=== PATIENT | male | born 1965 | race Caucasian/White ===

== ENCOUNTER 2019-04-03 12:04 | Emergency (ER) | payer OTHER, MEDICAID, SELFPAY ==
[2019-04-03 12:08] VITALS: BP 136/82; PULSE 69; RESP 16; TEMP 36.4; O2SAT 99; BMI 26.6
--- NOTE | 2019-04-03 13:09 | DI.RAD.S_ITS ---
PROCEDURE: XR ANKLE LT MIN 3V INDICATIONS: Tenderness and swelling over lateral malleolus TECHNIQUE: 3 views of the ankle were acquired. COMPARISON: None. FINDINGS: Bones: No fractures or dislocations. Ankle mortise is normally aligned. No suspicious bony lesions. Soft tissues: No tibiotalar joint effusion. Achilles tendon appears normal. IMPRESSION: No trauma. Dictated by: Aydin Peraza M.D. on 04/03/2019 at 13:28 Approved by: Aydin Peraza M.D. on 04/03/2019 at 13:28
--- NOTE | 2019-04-03 13:09 | DI.RAD.S_ITS ---
PROCEDURE: XR FOOT LT MIN 3V INDICATIONS: calcaneous and arch tenderness after landing on heel TECHNIQUE: 3 views of the foot were acquired. COMPARISON: None. FINDINGS: Bones: No fractures or dislocations. No suspicious bony lesions. Soft tissues: No tibiotalar joint effusion. Achilles tendon appears normal. IMPRESSION: No acute fracture. No osseous lesion. If symptoms and/or clinical suspicion for pathology persist, further assessment with repeat, or advanced imaging (e.g., CT, MRI, or bone scan) may be helpful for further assessment. Dictated by: Gualberto Nolasco M.D. on 04/03/2019 at 13:36 Approved by: Gualberto Nolasco M.D. on 04/03/2019 at 13:37
--- NOTE | 2019-04-03 13:13 | ED_ITS ---
HPI - Extremity Injury (Lower) <EDGAR Crawford - Last Filed: 04/03/19 14:01> General Chief Complaint: Extremity Injury, Lower Stated Complaint: Left foot pain stepped wrong off a truck Time Seen by Provider: 04/03/19 12:22 Source: patient Mode of arrival: ambulatory Limitations: no limitations History of Present Illness HPI Narrative: A 53-year-old male with an unremarkable past medical history, presents emergency department complaining of left foot pain and ankle swelling for the past 2 days after tripping while stepping off a truck and landing on his left heel. States he felt a pop in the bottom of his foot with associated constant 4/10 dull aching pain. Noticed swelling has increased to left foot, left ankle and lower left portion of calf over the past 2 days. Pain is worse with weight-bearing and better with rest. Continues to bear weight on foot. Denies calf tenderness, lumps, redness, dizziness, chest pain, shortness of breath, abdominal pain, nausea, vomiting, change in bowel movements, fever, chills, history of long trips, or history of taking blood thinners. MD complaint: foot injury Onset (ago): day(s) Type of Injury: blunt Place: street/outdoors Severity: mild Severity scale (1-10): 4 Relieving factors: rest Exacerbating factors: weight bearing Context: walking Associated symptoms: snap/pop sensation Other symptoms: none Related Data Home Medications Medication Instructions Recorded Confirmed [fermented codliver o] #0 02/13/18 [natural calm] #0 02/13/18 cholecalciferol (vitamin D3) 5,000 unit PO #0 02/13/18 cyanocobalamin (vitamin B-12) 1,000 mcg IM X1 #0 02/13/18 Allergies Allergy/AdvReac Type Severity Reaction Status Date / Time Penicillins [PENICILLINS] Allergy Unknown Verified 04/03/19 15:37 Review of Systems <EDGAR Crawford - Last Filed: 04/03/19 14:01> Review of Systems REVIEW OF SYSTEMS: GENERAL: Denies fever or chills. HENT: No head trauma, hearing loss or sore throat. EYES: No loss of vision, double vision, eye pain, or irritation. CARDIOVASCULAR: No chest pain or syncope. RESPIRATORY: No shortness of breath or cough. GASTROINTESTINAL: No nausea, vomiting, diarrhea, or constipation. GENITOURINARY: No flank pain or dysuria. MUSCULOSKELETAL: See HPI. No weakness. INTEGUMENTARY: No rash, lesions, or pruritus. NEURO: No numbness, tingling, memory loss, or confusion. PSYCH: No behavior or mood changes. PFSH <EDGAR Crawford - Last Filed: 04/03/19 14:01> Medical History (Updated 04/03/19 @ 16:33 by Sandhya Painter RN) No significant medical problems (Chronic) Social History Smoking Status: Current every day smoker Social History Smoking Status: Current every day smoker Exam <EDGAR Crawford - Last Filed: 04/03/19 14:01> Initial Vital Signs Initial Vital Signs: Vital Signs Temperature 97.5 F L 04/03/19 12:08 Pulse Rate 69 04/03/19 12:08 Respiratory Rate 16 04/03/19 12:08 Blood Pressure 136/82 04/03/19 12:08 Pulse Oximetry 99 04/03/19 12:08 PHYSICAL EXAMINATION: GENERAL:Alert, and cooperative Answers questions promptly and appropriately. Vital signs noted. HENT: Normocephalic, atraumatic. Oral mucosa is pink and moist. EYES: EOMIs, conjunctiva pink, sclera white, no periorbital swelling. CARDIOVASCULAR: S1 and S2 sounds normal. Regular rate and rhythm, no murmurs, clicks, or bruits. No pedal edema. RESPIRATORY: Normal respiratory rate, trachea midline, airway patent. No stridor, nasal flaring or accessory muscle use. Lungs are clear in all mcbride without wheeze, rhonchi, or crackles. MUSCULOSKELETAL: Normal gait and coordination. Equal tone and mass bilaterally. No spinal tenderness or deformities. EXTREMITIES: 1+ nonpitting swelling noted arch of left foot, 1+ nonpitting swel ling noted to the medial and lateral malleolus. Tenderness around plantar arch area, tenderness to lateral and medial malleolus. No tenderness to left calf with movement and deep palpation , no tenderness to calf with extension of foot. No redness, or induration, or increased warmth to the calf, ankle, or foot. CMS intact. Full range of motion to feet and ankles bilaterally and 5/5 strength to lower extremities. Patient able to bear weight without limping and can walk across the room. No ecchymosis noted. No deformities. SKIN: Warm, dry, soft, appropriate color for ethnicity. No lesions, rashes, or wounds. NEURO: Alert and Oriented X 3. Good coordination. No ataxia, or sensory deficits, or cognitive issues. PSYCH: Appropriate affect and mood. <Sabrina Santiago MD - Last Filed: 04/03/19 19:07> Initial Vital Signs Initial Vital Signs: Vital Signs Temperature 97.5 F L 04/03/19 12:08 Pulse Rate 69 04/03/19 12:08 Respiratory Rate 16 04/03/19 12:08 Blood Pressure 136/82 04/03/19 12:08 Pulse Oximetry 99 04/03/19 12:08 Scores <EDGAR Crawford - Last Filed: 04/03/19 14:01> Wells' Criteria for DVT Active Cancer (Treatment within 6 months): No Bedridden recently >3 days or major surgery within 4 weeks: No Calf Swelling >3cm compared to other leg: No Collateral (nonvericose) superficial veins present: No Entire leg swollen: No Localized tenderness along the deep vein system: No Pitting edema, confined to symtomatic leg: No Paralysis, paresis, or recent plaster immobilization of ext: No Previously documented DVT: No Alternative dx to DVT as likely or more likely: No Wells' criteria for DVT: 0 Course <EDGAR Crawford - Last Filed: 04/03/19 14:01> Course Narrative: Discussed with patient discharge instructions and follow-up as an additional x-ray or testing may be needed if symptoms persist. Discussed with to look for for signs of a blood clot which can happen after injury. Orders Ordered: ED Orders 04/03/19 13:09 XR ankle LT min 3V Stat XR foot LT min 3V Stat Consultations Consultation #1: Patient staffed with Dr. Santiago who agrees with plan of care. Vital Signs - 8 hr 04/03/19 12:08 04/03/19 14:00 04/03/19 14:13 Temperature 97.5 F L 98.5 F Pulse Rate 69 68 Pulse Rate [Left Radial] 68 Respiratory Rate 16 18 Blood Pressure 136/82 Blood Pressure [Right Arm] 143/90 H Pulse Oximetry 99 98 04/03/19 14:40 Temperature Pulse Rate 68 Pulse Rate [Left Radial] Respiratory Rate 18 Blood Pressure 143/90 H Blood Pressure [Right Arm] Pulse Oximetry 98 <Sabrina Santiago MD - Last Filed: 04/03/19 19:07> Orders Ordered: ED Orders 04/03/19 13:09 XR ankle LT min 3V Stat XR foot LT min 3V Stat Vital Signs - 8 hr 04/03/19 12:08 04/03/19 14:00 04/03/19 14:13 Temperature 97.5 F L 98.5 F Pulse Rate 69 68 Pulse Rate [Left Radial] 68 Respiratory Rate 16 18 Blood Pressure 136/82 Blood Pressure [Right Arm] 143/90 H Pulse Oximetry 99 98 04/03/19 14:40 Temperature Pulse Rate 68 Pulse Rate [Left Radial] Respiratory Rate 18 Blood Pressure 143/90 H Blood Pressure [Right Arm] Pulse Oximetry 98 MDM - Extremity Injury (Lower) <EDGAR Crawford - Last Filed: 04/03/19 14:01> Medical Records Attestation: I reviewed the patient's medical records. Lab Data Attestation: I reviewed the patient's lab results. Imaging Data Ankle XR: Radiologist's impression: [address] [address] XRay Report Signed Patient: Valeriy Beasley#: [id number] : 1965Acct:[id number] Age/Sex: 53 / MDate of Service: 04/03/19 Loc: ED Accession Number: [id number] Procedure: XR ankle LT min 3V Ordering Provider: Elise Albarado PROCEDURE: XR ANKLE LT MIN 3V INDICATIONS: Tenderness and swelling over lateral malleolus TECHNIQUE: 3 views of the ankle were acquired. COMPARISON: None. FINDINGS: Bones: No fractures or dislocations. Ankle mortise is normally aligned. No suspicious bony lesions. Soft tissues: No tibiotalar joint effusion. Achilles tendon appears normal. IMPRESSION: No trauma. Dictated by: Aydin Peraza M.D. on 04/03/2019 at 13:28 Approved by: Aydin Peraza M.D. on 04/03/2019 at 13:28 Left foot: Radiologist's impression: [address] [address] XRay Report Signed Patient: Chet Beasleymalinda#: [id number] : 1965Acct:[id number] Age/Sex: 53 / MDate of Service: 04/03/19 Loc: ED Accession Number: [id number] Procedure: XR foot LT min 3V Ordering Provider: Elise Albarado PROCEDURE: XR FOOT LT MIN 3V INDICATIONS: calcaneous and arch tenderness after landing on heel TECHNIQUE: 3 views of the foot were acquired. COMPARISON: None. FINDINGS: Bones: No fractures or dislocations. No suspicious bony lesions. Soft tissues: No tibiotalar joint effusion. Achilles tendon appears normal. IMPRESSION: No acute fracture. No osseous lesion. If symptoms and/or clinical suspicion for pathology persist, further assessment with repeat, or advanced imaging (e.g., CT, MRI, or bone scan) may be helpful for further assessment. Dictated by: Gualberto Nolasco M.D. on 04/03/2019 at 13:36 Approved by: Gualberto Nolasco M.D. on 04/03/2019 at 13:37 MDM Narrative Medical decision making narrative: I suspect swelling and pain is from a sprain due to inability to bear weight, slight swelling, mechanism of injury, and no acute changes on x-ray. Very little concern for blood clot due to lack of calf tenderness with palpation and stretching and calf, redness, induration, or significant risk factors. Return precautions and follow-up instructions discussed. Discharge Plan Departure Patient Disposition: Home Clinical Impression: Foot pain, left Sprain of foot, left Qualifiers: Encounter type: initial encounter Qualified Code(s): S93.602A - Unspecified sprain of left foot, initial encounter Discharge Date/Time: 04/03/19 14:02 Interventions: ED Discharge Assessment Last Done: 04/03/19 14:40 Instructions: DI for Deep Vein Thrombosis, DI for Foot Sprain Activity Restrictions/Additional Instructions: As discussed, you're x-rays do not show any broken bones or acute abnormalities. I suspect the pain and swelling is caused from a sprain to your foot. Please use ibuprofen as needed for pain, elevate the leg when possible, use an Pito bandage for few days to decrease the swelling. Although this is less likely, I have attached instructions on signs to look for a blood clot, if these signs occur please return. Otherwise, follow up with her primary care provider in the next few days if needed. Prescriptions: No Action cyanocobalamin (vitamin B-12) 1,000 MCG/1 ML solution 1,000 mcg IM X1 Qty: 0 RF: 0 cholecalciferol (vitamin D3) 5,000 UNIT capsule 5,000 unit PO Qty: 0 RF: 0 [fermented codliver o] Qty: 0 RF: 0 [natural calm] Qty: 0 RF: 0
[2019-04-03 14:00] VITALS: BP 143/90; PULSE 68; RESP 18; TEMP 36.9; O2SAT 98
[2019-04-03 14:13] VITALS: PULSE 68
[2019-04-03 14:40] VITALS: BP 143/90; PULSE 68; RESP 18; O2SAT 98
== END 2019-04-03 14:02 | disposition home or self-care (01) ==
PROVIDERS: Emergency Provider Nurse Practitioner
DX: S93.602A Unspecified sprain of left foot, initial encounter (principal); W18.49XA Other slipping, tripping and stumbling without falling, initial encounter
CPT/HCPCS: 73610; 73630; 99282; 99283

== ENCOUNTER 2019-04-03 15:26 | Emergency (ER) | payer OTHER, MEDICAID, SELFPAY ==
[2019-04-03 15:34] VITALS: BP 139/83; PULSE 106; RESP 16; TEMP 37.2; O2SAT 98; BMI 26.6
--- NOTE | 2019-04-03 19:08 | ED.SKABFB ---
HPI - Skin/Abscess/Foreign Bdy General Chief complaint: Skin/Abscess/Foreign Body Stated complaint: PAINFUL, HARD LUMP ON BACK Related Data Home Medications Medication Instructions Recorded Confirmed [fermented codliver o] #0 02/13/18 [natural calm] #0 02/13/18 cholecalciferol (vitamin D3) 5,000 unit PO #0 02/13/18 cyanocobalamin (vitamin B-12) 1,000 mcg IM X1 #0 02/13/18 Allergies Allergy/AdvReac Type Severity Reaction Status Date / Time Penicillins [PENICILLINS] Allergy Unknown Verified 04/03/19 15:37 [facility] Medical History (Updated 04/03/19 @ 16:33 by Sandhya Painter RN) No significant medical problems (Chronic) Social History Smoking Status: Current every day smoker Social History Smoking Status: Current every day smoker Exam Initial Vital Signs Initial Vital Signs: Vital Signs Temperature 98.9 F 04/03/19 15:34 Pulse Rate 106 H 04/03/19 15:34 Respiratory Rate 16 04/03/19 15:34 Blood Pressure 139/83 04/03/19 15:34 Pulse Oximetry 98 04/03/19 15:34 Course Course Narrative: Patient left without being seen. Vital Signs - 8 hr 04/03/19 15:34 Temperature 98.9 F Pulse Rate 106 H Respiratory Rate 16 Blood Pressure 139/83 Pulse Oximetry 98 Discharge Plan Departure Patient Disposition: Left Against Medical Advice Clinical Impression: Patient left after triage Discharge Date/Time: 04/03/19 16:33 Interventions: ED Discharge Assessment Last Done: 04/03/19 16:30 Prescriptions: No Action cyanocobalamin (vitamin B-12) 1,000 MCG/1 ML solution 1,000 mcg IM X1 Qty: 0 RF: 0 cholecalciferol (vitamin D3) 5,000 UNIT capsule 5,000 unit PO Qty: 0 RF: 0 [fermented codliver o] Qty: 0 RF: 0 [natural calm] Qty: 0 RF: 0 Stand Alone Forms: Against Medical Advice
== END 2019-04-03 16:33 | disposition left against medical advice (07) ==
PROVIDERS: Emergency Provider Emergency Medicine
DX: S93.602A Unspecified sprain of left foot, initial encounter (principal); W18.49XA Other slipping, tripping and stumbling without falling, initial encounter
CPT/HCPCS: 73610; 73630; 99282; 99283

== ENCOUNTER 2020-04-30 11:44 | Emergency (ER) | payer OTHER, MEDICAID, SELFPAY ==
[2020-04-30 12:04] VITALS: BP 163/98; PULSE 78; RESP 18; TEMP 37.4; O2SAT 99; BMI 27.3
--- NOTE | 2020-04-30 12:25 | ED_ITS ---
HPI - Dental/Oral <EDGAR Crawford - Last Filed: 04/30/20 20:55> General Chief complaint: Dental/Oral Stated complaint: LEFT SIDE BROKEN TOOTH SWELLING Time Seen by Provider: 04/30/20 12:11 Source: patient Mode of arrival: Family Vehicle Limitations: no limitations History of Present Illness HPI Narrative: 54yo male with history of dental caries, presents to the emergency department complaining of left lower tooth pain. He states 2 days ago he was chewing beef jerky when he felt like a piece of food was stuck in his tooth. The next morning he noticed he had significant left tooth pain and mild cheek swelling. Patient states the pain was partially relieved with Tylenol and ibuprofen, he went to work today and noticed the pain was increasing throughout the day. Patient is concern for infection. He has not seen the dentist at this point but plans to establish a dentist appointment. Patient denies other symptoms such as difficulty swallowing, fevers, chills, nausea, vomiting, diarrhea, chest pain, shortness of breath, or any other concerns. Patient reports allergies to penicillin, he states he has taken clindamycin the past. Related Data Home Medications Medication Instructions Recorded Confirmed [fermented codliver o] #0 02/13/18 [natural calm] #0 02/13/18 cholecalciferol (vitamin D3) 5,000 unit PO #0 02/13/18 cyanocobalamin (vitamin B-12) 1,000 mcg IM X1 #0 02/13/18 Previous Rx's Medication Instructions Recorded clindamycin HCl 300 mg PO TID 7 Days #22 cap 04/30/20 Allergies Allergy/AdvReac Type Severity Reaction Status Date / Time Penicillins [PENICILLINS] Allergy Unknown Verified 04/30/20 12:10 Review of Systems <EDGAR Crawford - Last Filed: 04/30/20 20:55> Review of Systems Narrative: REVIEW OF SYSTEMS: GENERAL: Denies fevers. HENT: No head trauma or hearing loss. Reports left lower tooth pain and left cheek swelling, see HPI. EYES: No vision changes. CARDIOVASCULAR: No chest pain or syncope. RESPIRATORY: No shortness of breath. GASTROINTESTINAL: No nausea, vomiting, diarrhea, or constipation. MUSCULOSKELETAL: No pain. INTEGUMENTARY: No rash, lesions, or pruritus. NEURO: No memory loss, or confusion. Patient History <EDGAR Crawford - Last Filed: 04/30/20 20:55> Medical History No significant medical problems (Chronic) Social History Smoking Status: Current every day smoker Smoking Status: Current every day smoker tobacco type: cigarettes alcohol intake frequency: holidays/special occasions only Substance Use Type: does not use Exam <EDGAR Crawford - Last Filed: 04/30/20 20:55> Initial Vital Signs Initial Vital Signs: Vital Signs Temperature 99.4 F 04/30/20 12:04 Pulse Rate 78 04/30/20 12:04 Respiratory Rate 18 04/30/20 12:04 Blood Pressure 163/98 H 04/30/20 12:04 Pulse Oximetry 99 04/30/20 12:04 PHYSICAL EXAMINATION: GENERAL: Well groomed, alert, and cooperative. Answers questions promptly and appropriately. Vital signs noted. HENT: Normocephalic, atraumatic. Oropharynx without erythema, tooth #19 with caries in surrounding gingivitis, small amount of swelling noted to cheek and gum. Tenderness with palpation. Multiple caries noted in mouth, multiple missing teeth. EYES: Conjunctiva pink, sclera white, no periorbital swelling. No discharge. CHEST: Normal to inspection and without deformities. CARDIOVASCULAR: REgular rate. RESPIRATORY: Normal respiratory rate, trachea midline, airway patent. No stridor, nasal flaring or accessory muscle use. MUSCULOSKELETAL: Normal gait and coordination. Equal tone and mass bilaterally. EXTREMITIES: Moves all extremities. SKIN: Warm, dry, soft, appropriate color for ethnicity. No lesions, rashes, or wounds to visualized areas. NEURO: Alert and Oriented X 3. Good coordination. No ataxia or cognitive issues. PSYCH: Appropriate affect and mood. <Naomi Pérez MD - Last Filed: 05/01/20 12:36> Initial Vital Signs Initial Vital Signs: Vital Signs Temperature 99.4 F 04/30/20 12:04 Pulse Rate 78 04/30/20 12:04 Respiratory Rate 18 04/30/20 12:04 Blood Pressure 163/98 H 04/30/20 12:04 Pulse Oximetry 99 04/30/20 12:04 Course <EDGAR Crawford - Last Filed: 04/30/20 20:55> Vital Signs Vital signs: Vital Signs - 8 hr 04/30/20 12:04 Temperature 99.4 F Pulse Rate 78 Respiratory Rate 18 Blood Pressure 163/98 H Pulse Oximetry 99 <Naomi Pérez MD - Last Filed: 05/01/20 12:36> Vital Signs Vital signs: Vital Signs - 8 hr 04/30/20 12:04 Temperature 99.4 F Pulse Rate 78 Respiratory Rate 18 Blood Pressure 163/98 H Pulse Oximetry 99 MDM - Dental/Oral <EDGAR Crawford - Last Filed: 04/30/20 20:55> Medical Records Attestation: I reviewed the patient's medical records. Lab Data Attestation: I reviewed the patient's lab results. [facility] Narrative Medical decision making narrative: History and examination consistent with dental abscess given patient's history, symptoms, and exam. Due to patient's penicillin allergy, clindamycin was prescribed. Patient states he has taken this in the past and states he tolerated well. No concerns of sepsis due to lack of fever or tachycardia and local presentation of infection. Patient was encouraged to follow up with a dentist. Return precautions given for new or worsening symptoms. Patient agreed to plan of care verbalized understanding Discharge Plan Departure Patient Disposition: Home Clinical Impression: Dental abscess Discharge Date/Time: 04/30/20 12:32 Instructions: Tooth Abscess, DI for Dental Pain Activity Restrictions/Additional Instructions: Thank you for entrusting me with your care today. As discussed, the swelling and pain in your tooth is most likely caused by a dental abscess. I prescribed you antibiotics, please take these right away. Take 2 pills for the 1st dose, after this take 1 pill for each dose 3 times a day. These antibiotics can cause diarrhea, if the diarrhea persists for a week after you have completed the medication, please follow-up with your primary care provider. Your prescription was sent to [facility] in [place]. Please follow-up with a dentist as soon as possible to prevent the problem from reoccurring. Return emergency department for any new or worsening symptoms such as fevers, severe pain, chest pain, shortness of breath, or any other concerns. Prescriptions: New clindamycin HCl 300 mg capsule 300 mg PO TID 7 Days Qty: 22 RF: 0 No Action cyanocobalamin (vitamin B-12) 1,000 MCG/1 ML solution 1,000 mcg IM X1 Qty: 0 RF: 0 cholecalciferol (vitamin D3) 5,000 UNIT capsule 5,000 unit PO Qty: 0 RF: 0 [fermented codliver o] Qty: 0 RF: 0 [natural calm] Qty: 0 RF: 0 <Naomi Pérez MD - Last Filed: 05/01/20 12:36> Cosign ED Attending Cosignature Attestation: I was immediately available in the department for consultation throughout this patient's visit. I agree with documentation as above. Naomi Pérez MD
== END 2020-04-30 12:32 | disposition home or self-care (01) ==
PROVIDERS: Emergency Provider Nurse Practitioner
DX: K04.7 Periapical abscess without sinus (principal)
CPT/HCPCS: 99281

== ENCOUNTER 2021-04-04 15:13 | Emergency (ER) | payer OTHER, MEDICAID, SELFPAY ==
[2021-04-04 15:17] VITALS: BP 129/79; PULSE 92; RESP 16; TEMP 37.4; O2SAT 97; BMI 26.6
[2021-04-04 17:19] VITALS: BP 146/89; PULSE 76; RESP 16; TEMP 36.8; O2SAT 99
--- NOTE | 2021-04-04 17:59 | ED.DENTAL ---
HPI - Dental/Oral General Chief complaint: Dental/Oral Stated complaint: Abcess Tooth Time Seen by Provider: 04/04/21 17:55 Source: patient Mode of arrival: Ambulatory Limitations: no limitations History of Present Illness HPI Narrative: Patient is a 55-year-old male who presents with left lower jaw swelling and pain ongoing for last couple of days. He has been taking ibuprofen for pain and swelling which seems to help but he continues to have it. He has poor dentition at baseline. MD Complaint: tooth pain Teeth map: 1. No dental abscess missing teeth Onset (ago): day(s) Duration: intermittent Relieving factors: NSAIDs Related Data Home Medications Medication Instructions Recorded Confirmed [fermented codliver o] #0 02/13/18 02/07/21 [natural calm] #0 02/13/18 02/07/21 cholecalciferol (vitamin D3) 5,000 unit PO #0 02/13/18 02/07/21 cyanocobalamin (vitamin B-12) 1,000 mcg IM X1 #0 02/13/18 02/07/21 Previous Rx's Medication Instructions Recorded chlorhexidine gluconate 0.12 % 15 ml BUCCAL BID #118 ml 02/07/21 mouthwash clindamycin HCl 300 mg PO QID 7 Days #28 cap 04/04/21 Allergies Allergy/AdvReac Type Severity Reaction Status Date / Time Penicillins [PENICILLINS] Allergy Unknown Verified 02/07/21 18:53 Review of Systems Review of Systems Narrative: GENERAL: Denies chills,fever HEENT: Dental pain see HPI RESPIRATORY: Denies dyspnea, cough, wheezing CARDIOVASCULAR: Denies chest pain, palpitations GASTROINTESTINAL: Denies nausea, vomiting MUSCULOSKELETAL: Denies extremity pain, injury SKIN: No rash, no laceration, no pruritus NEUROLOGIC: Denies weakness, dizziness, headache, numbness 8 point review of systems is negative except for those stated above and HPI Patient History Medical History Dental infection No significant medical problems Social History Smoking Status: Current every day smoker Smoking Status: Current every day smoker tobacco type: cigarettes alcohol intake frequency: holidays/special occasions only Substance Use Type: does not use Exam Initial Vital Signs Initial Vital Signs: Vital Signs Temperature 99.4 F 04/04/21 15:17 Pulse Rate 92 H 04/04/21 15:17 Respiratory Rate 16 04/04/21 15:17 Blood Pressure 129/79 04/04/21 15:17 Pulse Oximetry 97 04/04/21 15:17 GENERAL: Well-appearing, well-nourished and in no acute distress. MOUTH-see above diagram no dental abscess poor dentition no upper Teeth CARDIOVASCULAR: peripheral pulses in tact, cap refill <2 sec RESPIRATORY: No respiratory distress, speaks in full sentences without difficulty EXTREMITIES: Normal range of motion, no clubbing or edema. Neurovascularly intact NEUROLOGICAL: Cranial nerves II through XII grossly intact. Normal gait and speech. SKIN: Warm, dry, no petechiae, no rashes or lesions. Course Orders Ordered: Discontinued Medications Clindamycin HCl (Clindamycin 150 Mg Capsule) 300 mg PO NOW ONE Stop: 04/04/21 17:59 Last Admin: 04/04/21 18:02 Dose: 300 mg Documented by: BTONER Vital Signs Vital signs: Vital Signs - 8 hr 04/04/21 15:17 04/04/21 17:19 Temperature 99.4 F 98.3 F Pulse Rate 92 H 76 Respiratory Rate 16 16 Blood Pressure 129/79 146/89 H Pulse Oximetry 97 99 Discharge Plan Departure Patient Disposition: Home Clinical Impression: Dental infection Instructions: DI for Dental Pain Activity Restrictions/Additional Instructions: *You have been diagnosed with dental pain *What to do: Start taking antibiotics you will need to see a dentist *Continue to take medications as directed Clindamycin 300 mg 4 times a day for 7 days--> SENT TO [facility] Motrin 600 mg every 6 hours if needed for [id number] pain *Follow up with your primary care provider in 2-3 days *Return to ER if you should have increased facial swelling pain or any new, worsening or concerning symptoms Prescriptions: New clindamycin HCl 300 mg capsule 300 mg PO QID 7 Days Qty: 28 RF: 0 No Action chlorhexidine gluconate 0.12 % mouthwash 15 ml buccal BID Qty: 118 RF: 0 cyanocobalamin (vitamin B-12) 1,000 MCG/1 ML solution 1,000 mcg IM X1 Qty: 0 RF: 0 cholecalciferol (vitamin D3) 5,000 UNIT capsule 5,000 unit PO Qty: 0 RF: 0 [fermented codliver o] Qty: 0 RF: 0 [natural calm] Qty: 0 RF: 0 Referrals: Miscellaneous,Doctor, MD [Primary Care Provider] -
[2021-04-04] MEDS: CLINDAMYCIN 150 MG CAPSULE 300 MG PO (18:02)
== END 2021-04-04 18:18 | disposition home or self-care (01) ==
PROVIDERS: Emergency Provider Emergency Medicine
DX: K04.7 Periapical abscess without sinus (principal)
CPT/HCPCS: 99283

== ENCOUNTER → 2021-04-27 16:44 | Outpatient (CLI) | payer OTHER, MEDICAID, SELFPAY ==
--- NOTE | 2021-04-27 17:04 | DI.RAD.S_ITS ---
PROCEDURE: XR SHOULDER RT MIN 2V INDICATIONS: right shoulder pain TECHNIQUE: 3 views of the shoulder were acquired. COMPARISON: None. FINDINGS: Bones: No fractures or dislocations. Mild degenerative change at the AC joint. No suspicious bony lesions. Visualized ribs appear intact. Soft tissues: No suspicious soft tissue calcifications. IMPRESSION: No acute osseous abnormality. Mild degenerative change appreciated at the AC joint. Dictated by: Larry Yeung M.D. on 04/27/2021 at 17:21 Approved by: Larry Yeung M.D. on 04/27/2021 at 17:22
== END ==
PROVIDERS: Referring Provider Physician Assistant; Visit Provider Physician Assistant
DX: M25.511 Pain in right shoulder (principal)
CPT/HCPCS: 73030

== ENCOUNTER 2021-06-16 14:10 | Emergency (ER) | payer OTHER, MEDICAID, SELFPAY ==
[2021-06-16] VITALS (62 sets, daily range): BP systolic 110–167; BP diastolic 82–113; PULSE 106–154; RESP 15–29; TEMP 37.2; O2SAT 94–99; BMI 27.3
--- NOTE | 2021-06-16 14:29 | DI.RAD.S_ITS ---
PROCEDURE: XR CHEST 1V INDICATIONS: chest pain TECHNIQUE: One view of the chest was acquired. COMPARISON: [facility], CR, XR SHOULDER RT MIN 2V, 04/27/2021, 17:01. FINDINGS: Surgical changes and devices: None. Lungs and pleura: Lungs are clear. No pleural effusions or pneumothorax. Mediastinum: Mediastinal contours appear normal. Heart size is normal. Bones and chest wall: No suspicious bony lesions. Overlying soft tissues appear unremarkable. IMPRESSION: No acute cardiopulmonary abnormality. Dictated by: Larry Yeung M.D. on 06/16/2021 at 14:49 Approved by: Larry Yeung M.D. on 06/16/2021 at 14:50
[2021-06-16] MEDS: METOPROLOL TARTRATE 5 MG/5 ML INJ IV ×3 (14:49→15:56)
[2021-06-16] MEDS: SODIUM CHLORIDE 0.9% 1,000 ML 150 ML IV (14:50)
[2021-06-16 14:51] LABS: Add Manual Diff / Slide Review NO; Basophils Absolute Auto 0 /uL (0-100); Basophils Percent Auto 0.7 % (0-2); Eosinophils Absolute Auto 100 /uL (0-450); Eosinophils Percent Auto 1.4 % (2-4); Hematocrit 37.3 % (41-53); Hemoglobin 12.4 g/dL (13.5-17.5); Lymphocytes Absolute Auto 1500 /uL (1100-4500); Lymphocytes Percent Auto 26.8 % (25-40); Mean Corpuscular HGB Conc 33.2 % (30-36); Mean Corpuscular Hemoglobin 32.3 PG (26-34); Mean Corpuscular Volume 97.2 fL (80-100); Monocytes Absolute Auto 500 /uL (0-900); Monocytes Percent Auto 8.5 % (3-14); Neutrophils Absolute Auto 3500 /uL (1500-7000); Neutrophils Percent Auto 62.6 % (50-75); Platelet Count 239 X10^3/uL (150-400); Red Blood Cell Count 3.83 X10^6/uL (4.5-5.9); Red Cell Distribution Width 13.6 % (11.6-14.8); White Blood Cell Count 5.6 X10^3/uL (4.5-11.0)
--- NOTE | 2021-06-16 14:51 | ED_ITS ---
HPI - Arrhythmia/Palpitations <Oral Hopkins PA-C - Last Filed: 06/17/21 20:28> General Chief Complaint: Arrhythmia/Palpitations Stated Complaint: elevated HR, high BP Time Seen by Provider: 06/16/21 14:25 History of Present Illness HPI narrative: Elevated blood pressure and fast heart rate that has been going on for a few weeks. He reports that he finally came into the walk-in clinic today because of his persistent symptoms. They recommended that he come down to the emergency department for further evaluation. He does not have any significant cardiac history or pulmonary history. He reports that his father had atrial fibrillation and at age of 90. He denies any significant chest pain but does state that he gets a bit more tired than usual. He also has noticed a bit of swelling in both of his ankles. He denies any fever, cough, nausea, diaphoresis, vomiting, abdominal pain or any other acute concerns or complaints at this time. He denies any new medications. Denies any significant alcohol intake. Related Data Home Medications Medication Instructions Recorded Confirmed [fermented codliver o] #0 02/13/18 04/27/21 [natural calm] #0 02/13/18 04/27/21 cholecalciferol (vitamin D3) 125 5,000 unit PO #0 02/13/18 04/27/21 mcg (5,000 unit) capsule cyanocobalamin (vitamin B-12) 1,000 mcg IM X1 #0 02/13/18 04/27/21 1,000 mcg/mL injection solution Previous Rx's Medication Instructions Recorded chlorhexidine gluconate 0.12 % 15 ml BUCCAL BID #118 ml 02/07/21 mouthwash Allergies Allergy/AdvReac Type Severity Reaction Status Date / Time Penicillins [PENICILLINS] Allergy Unknown Verified 04/27/21 16:31 Review of Systems <Oral Hopkins PA-C - Last Filed: 06/17/21 20:28> Review of Systems Narrative: As per HPI Patient History <Oral Hopkins PA-C - Last Filed: 06/17/21 20:28> Medical History Dental infection No significant medical problems Social History Smoking Status: Current every day smoker Smoking Status: Current every day smoker tobacco type: cigarettes alcohol intake frequency: holidays/special occasions only Substance Use Type: does not use Exam <Oral Hopkins PA-C - Last Filed: 06/17/21 20:28> Narrative Exam Narrative: Exam Narrative: Const General: cooperative, healthy appearing, comfortable, no acute distress, well developed and well groomed Nutritional Appearance: average body habitus Orientation: alert and oriented x3 HENMT Head: normal to inspection and atraumatic Ears: hearing grossly normal bilaterally Nose: external nose normal and nares normal Face and sinus: normal facial exam Neck Neck: normal visual inspection and supple Resp Effort & Inspection: normal respiratory effort, able to speak in complete sentences, no audible wheezes, not labored, no nasal flaring and no respiratory distress, clear to auscultation bilaterally Cardiac Tachycardic rate, regular rhythm. No murmurs rubs or gallops noted. 1+ pitting edema bilateral lower extremities to mid morrow. No calf tenderness. GI Nondistended, nontender to palpation, no pulsatile mass. Neuro General: alert, oriented x3, gait normal, tone normal and moves all extremities Cognition: normal cognition Speech: speech normal Gait: normal gait Psych Appearance: grossly normal and well kempt Mental Status: mental status grossly normal Speech and Movement: speech and movement normal Mood: congruent mood Affect: normal affect Initial Vital Signs Initial Vital Signs: Vital Signs Temperature 98.9 F 06/16/21 14:26 Pulse Rate 154 H 06/16/21 14:26 Respiratory Rate 20 06/16/21 14:26 Blood Pressure 145/101 H 06/16/21 14:26 Pulse Oximetry 99 06/16/21 14:26 <Haris Currie DO - Last Filed: 06/20/21 07:00> Initial Vital Signs Initial Vital Signs: Vital Signs Temperature 98.9 F 06/16/21 14:26 Pulse Rate 154 H 06/16/21 14:26 Respiratory Rate 20 06/16/21 14:26 Blood Pressure 145/101 H 06/16/21 14:26 Pulse Oximetry 99 06/16/21 14:26 Course <Oral Hopkins PA-C - Last Filed: 06/17/21 20:28> Course Course Narrative: We called around to multiple hospitals to figure out who had availability as well as capability to do a HECTOR with likely cardioversion. [facility] had the appropriate availability and transport was facilitated. I spoke with Dr. Turner, the hospitalist who is the accepting physician for this patient. Full report was given. All this was discussed extensively with patient who agreed to transfer and treatment. An extensive amount of time was spent discussing his condition, workup and expected outcome with the patient and his . All of their questions were answered to their sa tisfaction. Orders Ordered: Discontinued Medications Sodium Chloride (Normal Saline 0.9%) 1,000 mls @ 150 mls/hr IV CONT KEMI Last Infusion: 06/16/21 19:26 Dose: 0 mls/hr Documented by: CTR.[email or web address] Admin: 06/16/21 14:50 Dose: 150 mls/hr Documented by: [email or web address] Metoprolol Tartrate (Metoprolol Tartrate 5 Mg/5 Ml Inj) 5 mg IV Q5M KEMI Stop: 06/16/21 14:56 Last Admin: 06/16/21 15:56 Dose: 5 mg Documented by: CTR.HANDER Admin: 06/16/21 15:27 Dose: 5 mg Documented by: [email or web address] Admin: 06/16/21 14:49 Dose: 5 mg Documented by: [email or web address] Metoprolol Tartrate (Metoprolol Ir 25 Mg Tablet) 25 mg PO NOW ONE Stop: 06/16/21 19:11 Last Admin: 06/16/21 19:15 Dose: 25 mg Documented by: [email or web address] Vital Signs Vital signs: Vital Signs - 8 hr 06/16/21 14:26 06/16/21 15:17 06/16/21 15:21 Temperature 98.9 F Pulse Rate 154 H 118 H 121 H Respiratory Rate 20 22 22 Blood Pressure 145/101 H 122/96 H Pulse Oximetry 99 97 97 06/16/21 15:22 06/16/21 15:23 06/16/21 15:24 Temperature Pulse Rate 123 H 125 H 124 H Respiratory Rate 23 23 24 Blood Pressure 126/106 H 131/111 H 139/99 H Pulse Oximetry 96 96 95 06/16/21 15:25 06/16/21 15:26 06/16/21 15:30 Temperature Pulse Rate 116 H 122 H 116 H Respiratory Rate 24 26 H 24 Blood Pressure 136/85 124/82 131/91 H Pulse Oximetry 94 96 96 08/12/21 15:35 06/16/21 15:40 06/16/21 15:45 Temperature Pulse Rate 115 H 110 H 111 H Respiratory Rate 23 21 18 Blood Pressure Pulse Oximetry 96 96 96 06/16/21 15:50 06/16/21 15:55 06/16/21 16:00 Temperature Pulse Rate 118 H 109 H 113 H Respiratory Rate 20 20 23 Blood Pressure 129/102 H Pulse Oximetry 96 96 97 06/16/21 16:03 06/16/21 16:05 06/16/21 16:09 Temperature Pulse Rate 114 H 110 H 107 H Respiratory Rate 22 21 20 Blood Pressure 137/102 H 130/106 H Pulse Oximetry 95 96 97 06/16/21 16:10 06/16/21 16:15 06/16/21 16:20 Temperature Pulse Rate 106 H 114 H 115 H Respiratory Rate 20 20 20 Blood Pressure 110/95 H 121/105 H 141/94 H Pulse Oximetry 96 96 96 06/16/21 16:25 06/16/21 16:26 06/16/21 16:30 Temperature Pulse Rate 112 H 110 H 118 H Respiratory Rate 22 21 21 Blood Pressure 140/99 H 126/86 Pulse Oximetry 97 97 97 06/16/21 16:35 06/16/21 16:40 06/16/21 16:41 Temperature Pulse Rate 118 H 119 H 121 H Respiratory Rate 23 27 H 24 Blood Pressure 141/94 H 128/101 H Pulse Oximetry 97 98 97 06/16/21 16:45 06/16/21 16:46 06/16/21 16:50 Temperature Pulse Rate 118 H 113 H 119 H Respiratory Rate 23 23 24 Blood Pressure 135/113 H 125/108 H Pulse Oximetry 97 96 97 06/16/21 16:55 06/16/21 17:00 06/16/21 17:01 Temperature Pulse Rate 116 H 122 H 116 H Respiratory Rate 24 23 23 Blood Pressure 139/99 H 167/98 H Pulse Oximetry 97 97 97 06/16/21 17:05 06/16/21 17:06 06/16/21 17:10 Temperature Pulse Rate 117 H 120 H 125 H Respiratory Rate 24 23 21 Blood Pressure 146/91 H 141/96 H Pulse Oximetry 98 96 97 06/16/21 17:15 06/16/21 17:16 06/16/21 17:20 Temperature Pulse Rate 119 H 119 H 115 H Respiratory Rate 23 25 H 26 H Blood Pressure 143/94 H 141/105 H Pulse Oximetry 97 97 98 06/16/21 17:25 06/16/21 17:30 06/16/21 17:39 Temperature Pulse Rate 119 H 119 H 121 H Respiratory Rate 26 H 23 25 H Blood Pressure 147/108 H 137/100 H Pulse Oximetry 97 96 06/16/21 17:40 06/16/21 17:43 06/16/21 17:45 Temperature Pulse Rate 129 H 120 H 120 H Respiratory Rate 20 25 H 20 Blood Pressure 137/108 H 133/102 H Pulse Oximetry 94 96 97 06/16/21 17:50 06/16/21 17:55 06/16/21 18:00 Temperature Pulse Rate 128 H 127 H 128 H Respiratory Rate 24 20 29 H Blood Pressure 140/113 H 137/109 H 138/102 H Pulse Oximetry 98 96 96 06/16/21 18:05 06/16/21 18:06 06/16/21 18:10 Temperature Pulse Rate 116 H 115 H 121 H Respiratory Rate 29 H 23 20 Blood Pressure 138/102 H 145/111 H Pulse Oximetry 97 96 97 06/16/21 18:15 06/16/21 18:20 06/16/21 18:25 Temperature Pulse Rate 116 H 118 H 121 H Respiratory Rate 15 17 18 Blood Pressure 127/99 H 152/110 H 145/102 H Pulse Oximetry 96 96 95 06/16/21 18:30 06/16/21 18:35 06/16/21 18:40 Temperature Pulse Rate 119 H 115 H 114 H Respiratory Rate 19 20 22 Blood Pressure 138/95 H 135/96 H 139/102 H Pulse Oximetry 94 95 99 06/16/21 18:45 06/16/21 18:50 06/16/21 18:55 Temperature Pulse Rate 124 H 106 H 112 H Respiratory Rate 25 H 18 22 Blood Pressure 133/86 155/107 H 148/97 H Pulse Oximetry 98 98 98 06/16/21 19:00 06/16/21 19:01 Temperature Pulse Rate 112 H 124 H Respiratory Rate 21 25 H Blood Pressure 138/96 H 148/103 H Pulse Oximetry 97 96 <Haris Currie DO - Last Filed: 06/20/21 07:00> Orders Ordered: Discontinued Medications Sodium Chloride (Normal Saline 0.9%) 1,000 mls @ 150 mls/hr IV CONT KEMI Last Infusion: 06/16/21 19:26 Dose: 0 mls/hr Documented by: Admin: 06/16/21 14:50 Dose: 150 mls/hr Documented by: CONNER Metoprolol Tartrate (Metoprolol Tartrate 5 Mg/5 Ml Inj) 5 mg IV Q5M KEMI Stop: 06/16/21 14:56 Last Admin: 06/16/21 15:56 Dose: 5 mg Documented by: Admin: 06/16/21 15:27 Dose: 5 mg Documented by: Admin: 06/16/21 14:49 Dose: 5 mg Documented by: CONNER Metoprolol Tartrate (Metoprolol Ir 25 Mg Tablet) 25 mg PO NOW ONE Stop: 06/16/21 19:11 Last Admin: 06/16/21 19:15 Dose: 25 mg Documented by: CONNER Vital Signs Vital signs: Vital Signs - 8 hr 06/16/21 14:26 06/16/21 15:17 06/16/21 15:21 Temperature 98.9 F Pulse Rate 154 H 118 H 121 H Respiratory Rate 20 22 22 Blood Pressure 145/101 H 122/96 H Pulse Oximetry 99 97 97 06/16/21 15:22 06/16/21 15:23 06/16/21 15:24 Temperature Pulse Rate 123 H 125 H 124 H Respiratory Rate 23 23 24 Blood Pressure 126/106 H 131/111 H 139/99 H Pulse Oximetry 96 96 95 06/16/21 15:25 06/16/21 15:26 06/16/21 15:30 Temperature Pulse Rate 116 H 122 H 116 H Respiratory Rate 24 26 H 24 Blood Pressure 136/85 124/82 131/91 H Pulse Oximetry 94 96 96 06/16/21 15:35 06/16/21 15:40 06/16/21 15:45 Temperature Pulse Rate 115 H 110 H 111 H Respiratory Rate 23 21 18 Blood Pressure Pulse Oximetry 96 96 96 06/16/21 15:50 06/16/21 15:55 06/16/21 16:00 Temperature Pulse Rate 118 H 109 H 113 H Respiratory Rate 20 20 23 Blood Pressure 129/102 H Pulse Oximetry 96 96 97 06/16/21 16:03 06/16/21 16:05 06/16/21 16:09 Temperature Pulse Rate 114 H 110 H 107 H Respiratory Rate 22 21 20 Blood Pressure 137/102 H 130/106 H Pulse Oximetry 95 96 97 06/16/21 16:10 06/16/21 16:15 06/16/21 16:20 Temperature Pulse Rate 106 H 114 H 115 H Respiratory Rate 20 20 20 Blood Pressure 110/95 H 121/105 H 141/94 H Pulse Oximetry 96 96 96 06/16/21 16:25 06/16/21 16:26 06/16/21 16:30 Temperature Pulse Rate 112 H 110 H 118 H Respiratory Rate 22 21 21 Blood Pressure 140/99 H 126/86 Pulse Oximetry 97 97 97 06/16/21 16:35 06/16/21 16:40 06/16/21 16:41 Temperature Pulse Rate 118 H 119 H 121 H Respiratory Rate 23 27 H 24 Blood Pressure 141/94 H 128/101 H Pulse Oximetry 97 98 97 06/16/21 16:45 06/16/21 16:46 06/16/21 16:50 Temperature Pulse Rate 118 H 113 H 119 H Respiratory Rate 23 23 24 Blood Pressure 135/113 H 125/108 H Pulse Oximetry 97 96 97 06/16/21 16:55 06/16/21 17:00 06/16/21 17:01 Temperature Pulse Rate 116 H 122 H 116 H Respiratory Rate 24 23 23 Blood Pressure 139/99 H 167/98 H Pulse Oximetry 97 97 97 06/16/21 17:05 06/16/21 17:06 06/16/21 17:10 Temperature Pulse Rate 117 H 120 H 125 H Respiratory Rate 24 23 21 Blood Pressure 146/91 H 141/96 H Pulse Oximetry 98 96 97 06/16/21 17:15 06/16/21 17:16 06/16/21 17:20 Temperature Pulse Rate 119 H 119 H 115 H Respiratory Rate 23 25 H 26 H Blood Pressure 143/94 H 141/105 H Pulse Oximetry 97 97 98 06/16/21 17:25 06/16/21 17:30 06/16/21 17:39 Temperature Pulse Rate 119 H 119 H 121 H Respiratory Rate 26 H 23 25 H Blood Pressure 147/108 H 137/100 H Pulse Oximetry 97 96 06/16/21 17:40 06/16/21 17:43 06/16/21 17:45 Temperature Pulse Rate 129 H 120 H 120 H Respiratory Rate 20 25 H 20 Blood Pressure 137/108 H 133/102 H Pulse Oximetry 94 96 97 06/16/21 17:50 06/16/21 17:55 06/16/21 18:00 Temperature Pulse Rate 128 H 127 H 128 H Respiratory Rate 24 20 29 H Blood Pressure 140/113 H 137/109 H 138/102 H Pulse Oximetry 98 96 96 06/16/21 18:05 06/16/21 18:06 06/16/21 18:10 Temperature Pulse Rate 116 H 115 H 121 H Respiratory Rate 29 H 23 20 Blood Pressure 138/102 H 145/111 H Pulse Oximetry 97 96 97 06/16/21 18:15 06/16/21 18:20 06/16/21 18:25 Temperature Pulse Rate 116 H 118 H 121 H Respiratory Rate 15 17 18 Blood Pressure 127/99 H 152/110 H 145/102 H Pulse Oximetry 96 96 95 06/16/21 18:30 06/16/21 18:35 06/16/21 18:40 Temperature Pulse Rate 119 H 115 H 114 H Respiratory Rate 19 20 22 Blood Pressure 138/95 H 135/96 H 139/102 H Pulse Oximetry 94 95 99 06/16/21 18:45 06/16/21 18:50 06/16/21 18:55 Temperature Pulse Rate 124 H 106 H 112 H Respiratory Rate 25 H 18 22 Blood Pressure 133/86 155/107 H 148/97 H Pulse Oximetry 98 98 98 06/16/21 19:00 06/16/21 19:01 Temperature Pulse Rate 112 H 124 H Respiratory Rate 21 25 H Blood Pressure 138/96 H 148/103 H Pulse Oximetry 97 96 MDM - Arrhythmia/Palpitations <Oral Hopkins PA-C - Last Filed: 06/17/21 20:28> Lab Data Result diagrams: 06/16/21 14:35 06/16/21 14:35 Labs: Lab Results 06/16/21 06/16/21 06/16/21 Range/Units 14:35 14:35 14:35 WBC 5.6 (4.5-11.0) X10^3/uL RBC 3.83 L (4.5-5.9) X10^6/uL Hgb 12.4 L (13.5-17.5) g/dL Hct 37.3 L (41-53) % MCV 97.2 (80-100) fL MCH 32.3 (26-34) PG MCHC 33.2 (30-36) % RDW 13.6 (11.6-14.8) % Plt Count 239 (150-400) X10^3/uL Neut % (Auto) 62.6 (50-75) % Lymph % (Auto) 26.8 (25-40) % Glades % (Auto) 8.5 (3-14) % Eos % (Auto) 1.4 L (2-4) % Baso % (Auto) 0.7 (0-2) % Neut # (Auto) 3500 (9340-3748) /uL Lymph # (Auto) 1500 (9773-5918) /uL Glades # (Auto) 500 (0-900) /uL Eos # (Auto) 100 (0-450) /uL Baso # (Auto) 0 (0-100) /uL PT 13.5 H (10.1-12.7) SECONDS INR 1.2 (0.9-1.3) D-Dimer (<230) ng/mL Sodium 134 L (137-145) mmol/L Potassium 4.1 (3.4-5.1) mmol/L Chloride 108 H (98-107) mmol/L Carbon Dioxide 21 L (22-32) mmol/L BUN 14 (9-20) mg/dL Creatinine 0.80 (0.66-1.25) mg/dL Estimated GFR > 60.0 (>60) mL/min BUN/Creatinine Ratio 17.5 (6-22) Glucose 135 H (70-100) mg/dL Calcium 8.6 (8.4-10.2) mg/dL Magnesium 1.8 (1.6-2.3) mg/dL Total Bilirubin 0.6 (0.2-1.3) mg/dL AST 54 (17-59) IU/L ALT 134 H (<50) IU/L Alkaline Phosphatase 87 (38-126) U/L Total Creatine Kinase 179 H (55-170) U/L CK-MB (CK-2) 2.50 H (<2.37) ng/mL CK-MB (CK-2) Rel Index 1.4 L (1.5-5.0) % Troponin I < 0.012 (0.01-0.034) ng/mL NT-Pro-B Natriuret Pep 1670 H (<125) pg/mL Total Protein 6.0 L (6.3-8.2) g/dL Albumin 3.5 (3.5-5.0) g/dL Globulin 2.5 (1.7-4.1) g/dL Albumin/Globulin Ratio 1.4 (1.0-2.8) Lipase 17 L (23-300) U/L TSH (0.47-4.68) uIU/mL 06/16/21 06/16/21 Range/Units 14:35 14:35 WBC (4.5-11.0) X10^3/uL RBC (4.5-5.9) X10^6/uL Hgb (13.5-17.5) g/dL Hct (41-53) % MCV (80-100) fL MCH (26-34) PG MCHC (30-36) % RDW (11.6-14.8) % Plt Count (150-400) X10^3/uL Neut % (Auto) (50-75) % Lymph % (Auto) (25-40) % Glades % (Auto) (3-14) % Eos % (Auto) (2-4) % Baso % (Auto) (0-2) % Neut # (Auto) (2382-3570) /uL Lymph # (Auto) (1851-8743) /uL Glades # (Auto) (0-900) /uL Eos # (Auto) (0-450) /uL Baso # (Auto) (0-100) /uL PT (10.1-12.7) SECONDS INR (0.9-1.3) D-Dimer 234 H (<230) ng/mL Sodium (137-145) mmol/L Potassium (3.4-5.1) mmol/L Chloride (98-107) mmol/L Carbon Dioxide (22-32) mmol/L BUN (9-20) mg/dL Creatinine (0.66-1.25) mg/dL Estimated GFR (>60) mL/min BUN/Creatinine Ratio (6-22) Glucose (70-100) mg/dL Calcium (8.4-10.2) mg/dL Magnesium (1.6-2.3) mg/dL Total Bilirubin (0.2-1.3) mg/dL AST (17-59) IU/L ALT (<50) IU/L Alkaline Phosphatase (38-126) U/L Total Creatine Kinase (55-170) U/L CK-MB (CK-2) (<2.37) ng/mL CK-MB (CK-2) Rel Index (1.5-5.0) % Troponin I (0.01-0.034) ng/mL NT-Pro-B Natriuret Pep (<125) pg/mL Total Protein (6.3-8.2) g/dL Albumin (3.5-5.0) g/dL Globulin (1.7-4.1) g/dL Albumin/Globulin Ratio (1.0-2.8) Lipase (23-300) U/L TSH 0.587 (0.47-4.68) uIU/mL MDM Narrative Medical decision making narrative: Differential diagnosis considered includes pneumonia, COVID infection, pulmonary embolism, sepsis, electrolyte abnormalities. Patient is continuing to be tachycardic in atrial fibrillation with RVR. His blood pressure is stable and his symptoms are mild at this time. D-dimer is within normal limits for age adjusted levels. Chest x-ray is reassuring. ProBNP is elevated suggesting possible CHF. This could be AFib induced. No evidence of pulmonary effusions. He is saturating well at this time. No clinical evidence to suggest a DVT. Patient will be transferred out to [facility] so that he can have a HECTOR as well as cardioversion. His whole situation was thoroughly explained with the patient and his . They were given the chance to ask multiple questions and all of their questions were answered to their satisfaction. <Haris Currie, DO - Last Filed: 06/20/21 07:00> Lab Data Labs: Lab Results 06/16/21 06/16/21 06/16/21 Range/Units 14:35 14:35 14:35 WBC 5.6 (4.5-11.0) X10^3/uL RBC 3.83 L (4.5-5.9) X10^6/uL Hgb 12.4 L (13.5-17.5) g/dL Hct 37.3 L (41-53) % MCV 97.2 (80-100) fL MCH 32.3 (26-34) PG MCHC 33.2 (30-36) % RDW 13.6 (11.6-14.8) % Plt Count 239 (150-400) X10^3/uL Neut % (Auto) 62.6 (50-75) % Lymph % (Auto) 26.8 (25-40) % Glades % (Auto) 8.5 (3-14) % Eos % (Auto) 1.4 L (2-4) % Baso % (Auto) 0.7 (0-2) % Neut # (Auto) 3500 (3482-7845) /uL Lymph # (Auto) 1500 (8539-6316) /uL Glades # (Auto) 500 (0-900) /uL Eos # (Auto) 100 (0-450) /uL Baso # (Auto) 0 (0-100) /uL PT 13.5 H (10.1-12.7) SECONDS INR 1.2 (0.9-1.3) D-Dimer (<230) ng/mL Sodium 134 L (137-145) mmol/L Potassium 4.1 (3.4-5.1) mmol/L Chloride 108 H (98-107) mmol/L Carbon Dioxide 21 L (22-32) mmol/L BUN 14 (9-20) mg/dL Creatinine 0.80 (0.66-1.25) mg/dL Estimated GFR > 60.0 (>60) mL/min BUN/Creatinine Ratio 17.5 (6-22) Glucose 135 H (70-100) mg/dL Calcium 8.6 (8.4-10.2) mg/dL Magnesium 1.8 (1.6-2.3) mg/dL Total Bilirubin 0.6 (0.2-1.3) mg/dL AST 54 (17-59) IU/L ALT 134 H (<50) IU/L Alkaline Phosphatase 87 (38-126) U/L Total Creatine Kinase 179 H (55-170) U/L CK-MB (CK-2) 2.50 H (<2.37) ng/mL CK-MB (CK-2) Rel Index 1.4 L (1.5-5.0) % Troponin I < 0.012 (0.01-0.034) ng/mL NT-Pro-B Natriuret Pep 1670 H (<125) pg/mL Total Protein 6.0 L (6.3-8.2) g/dL Albumin 3.5 (3.5-5.0) g/dL Globulin 2.5 (1.7-4.1) g/dL Albumin/Globulin Ratio 1.4 (1.0-2.8) Lipase 17 L (23-300) U/L TSH (0.47-4.68) uIU/mL 06/16/21 06/16/21 Range/Units 14:35 14:35 WBC (4.5-11.0) X10^3/uL RBC (4.5-5.9) X10^6/uL Hgb (13.5-17.5) g/dL Hct (41-53) % MCV (80-100) fL MCH (26-34) PG MCHC (30-36) % RDW (11.6-14.8) % Plt Count (150-400) X10^3/uL Neut % (Auto) (50-75) % Lymph % (Auto) (25-40) % Glades % (Auto) (3-14) % Eos % (Auto) (2-4) % Baso % (Auto) (0-2) % Neut # (Auto) (5196-6050) /uL Lymph # (Auto) (0745-9397) /uL Glades # (Auto) (0-900) /uL Eos # (Auto) (0-450) /uL Baso # (Auto) (0-100) /uL PT (10.1-12.7) SECONDS INR (0.9-1.3) D-Dimer 234 H (<230) ng/mL Sodium (137-145) mmol/L Potassium (3.4-5.1) mmol/L Chloride (98-107) mmol/L Carbon Dioxide (22-32) mmol/L BUN (9-20) mg/dL Creatinine (0.66-1.25) mg/dL Estimated GFR (>60) mL/min BUN/Creatinine Ratio (6-22) Glucose (70-100) mg/dL Calcium (8.4-10.2) mg/dL Magnesium (1.6-2.3) mg/dL Total Bilirubin (0.2-1.3) mg/dL AST (17-59) IU/L ALT (<50) IU/L Alkaline Phosphatase (38-126) U/L Total Creatine Kinase (55-170) U/L CK-MB (CK-2) (<2.37) ng/mL CK-MB (CK-2) Rel Index (1.5-5.0) % Troponin I (0.01-0.034) ng/mL NT-Pro-B Natriuret Pep (<125) pg/mL Total Protein (6.3-8.2) g/dL Albumin (3.5-5.0) g/dL Globulin (1.7-4.1) g/dL Albumin/Globulin Ratio (1.0-2.8) Lipase (23-300) U/L TSH 0.587 (0.47-4.68) uIU/mL Discharge Plan Departure Patient Disposition: [facility] Clinical Impression: New onset a-fib, Atrial fibrillation with RVR Prescriptions: No Action chlorhexidine gluconate 0.12 % mouthwash 15 ml buccal BID Qty: 118 RF: 0 cyanocobalamin (vitamin B-12) 1,000 MCG/1 ML solution 1,000 mcg IM X1 Qty: 0 RF: 0 cholecalciferol (vitamin D3) 5,000 UNIT capsule 5,000 unit PO Qty: 0 RF: 0 [fermented codliver o] Qty: 0 RF: 0 [natural calm] Qty: 0 RF: 0 Referrals: Ro Castro PA-C [Primary Care Provider] - <Haris Currie DO - Last Filed: 06/20/21 07:00> Cosign ED Attending Cosignature Attestation: Dr Currie Co-Sign Statement: I was available for consultation during this patient's emergency department visit. This chart is signed by myself for administrative purposes only. I did not have direct contact with this patient during this visit. They were seen independently by the APC.
[2021-06-16 14:58] LABS: INR 1.2 (0.9-1.3); Prothrombin Time 13.5 SECONDS (10.1-12.7)
[2021-06-16 15:08] LABS: Alanine Aminotransferase 134 IU/L (<50); Albumin 3.5 g/dL (3.5-5.0); Albumin Globulin Ratio 1.4 (1.0-2.8); Alkaline Phosphatase 87 U/L (38-126); Aspartate Aminotransferase 54 IU/L (17-59); BUN Creatinine Ratio 17.5 (6-22); Bilirubin Total 0.6 mg/dL (0.2-1.3); Blood Urea Nitrogen 14 mg/dL (9-20); Calcium 8.6 mg/dL (8.4-10.2); Carbon Dioxide 21 mmol/L (22-32); Chloride 108 mmol/L (98-107); Creatine Kinase 179 U/L (55-170); Estimated Glomerular Filt Rate > 60.0 mL/min (>60); Globulin 2.5 g/dL (1.7-4.1); Glucose 135 mg/dL (70-100); HEMOLYSIS < 15 (0-50); Lipase 17 U/L (23-300); Magnesium 1.8 mg/dL (1.6-2.3); Potassium 4.1 mmol/L (3.4-5.1); Sodium 134 mmol/L (137-145)
[2021-06-16 15:19] LABS: NT-proBNP (BNP-Adult 18+) 1670 pg/mL (<125); Troponin I < 0.012 ng/mL (0.01-0.034)
[2021-06-16 15:23] LABS: CKMB % Relative Index 1.4 % (1.5-5.0)
[2021-06-16 15:40] LABS: Thyroid Stimulating Hormone 0.587 uIU/mL (0.47-4.68)
[2021-06-16 16:00] LABS: D Dimer 234 ng/mL (<230)
[2021-06-16] MEDS: METOPROLOL IR 25 MG TABLET PO (19:15)
== END 2021-06-16 19:30 | disposition short-term general hospital (02) ==
PROVIDERS: Emergency Provider Physician Assistant; PCP Physician Assistant
DX: I48.20 Chronic atrial fibrillation, unspecified (principal)
CPT/HCPCS: 36415; 71045; 80053; 82550; 82553; 83690; 83735; 83880; 84443; 84484; 85025; 85379; 85610; 93005; 96361; 96374; 96376; 99284

== ENCOUNTER 2021-07-05 19:21 | Emergency (ER) | payer OTHER, MEDICAID, SELFPAY ==
[2021-07-05] VITALS (11 sets, daily range): BP systolic 119–162; BP diastolic 83–100; PULSE 56–87; RESP 15–19; TEMP 36.6; O2SAT 86–100; BMI 25.8
--- NOTE | 2021-07-05 19:36 | DI.RAD.S_ITS ---
PROCEDURE: XR CHEST 1V INDICATIONS: chest pain TECHNIQUE: One view of the chest was acquired. COMPARISON: [facility], CR, XR CHEST 1V, 06/16/2021, 14:31. FINDINGS: Surgical changes and devices: None. Lungs and pleura: Lungs are clear. No pleural effusions or pneumothorax. Mediastinum: Mediastinal contours appear normal. Heart size is normal. Bones and chest wall: No suspicious bony lesions. Overlying soft tissues appear unremarkable. IMPRESSION: No acute cardiopulmonary abnormality. Dictated by: Michael Rowland M.D. on 07/05/2021 at 20:29 Approved by: Michael Rowland M.D. on 07/05/2021 at 20:29
[2021-07-05 19:55] LABS: Add Manual Diff / Slide Review NO; Basophils Absolute Auto 100 /uL (0-100); Basophils Percent Auto 0.8 % (0-2); Eosinophils Absolute Auto 100 /uL (0-450); Eosinophils Percent Auto 1.9 % (2-4); Hematocrit 45.5 % (41-53); Hemoglobin 15.2 g/dL (13.5-17.5); Lymphocytes Absolute Auto 2200 /uL (1100-4500); Lymphocytes Percent Auto 35.2 % (25-40); Mean Corpuscular HGB Conc 33.3 % (30-36); Mean Corpuscular Hemoglobin 32.1 PG (26-34); Mean Corpuscular Volume 96.3 fL (80-100); Monocytes Absolute Auto 500 /uL (0-900); Monocytes Percent Auto 7.6 % (3-14); Neutrophils Absolute Auto 3500 /uL (1500-7000); Neutrophils Percent Auto 54.5 % (50-75); Platelet Count 249 X10^3/uL (150-400); Red Blood Cell Count 4.72 X10^6/uL (4.5-5.9); White Blood Cell Count 6.3 X10^3/uL (4.5-11.0)
[2021-07-05 20:13] LABS: Alanine Aminotransferase 30 IU/L (<50); Albumin 4.3 g/dL (3.5-5.0); Albumin Globulin Ratio 1.5 (1.0-2.8); Alkaline Phosphatase 83 U/L (38-126); Aspartate Aminotransferase 26 IU/L (17-59); BUN Creatinine Ratio 16.4 (6-22); Bilirubin Total 0.6 mg/dL (0.2-1.3); Blood Urea Nitrogen 20 mg/dL (9-20); Calcium 9.1 mg/dL (8.4-10.2); Carbon Dioxide 27 mmol/L (22-32); Chloride 104 mmol/L (98-107); Creatine Kinase 128 U/L (55-170); Estimated Glomerular Filt Rate > 60.0 mL/min (>60); Globulin 2.8 g/dL (1.7-4.1); Glucose 93 mg/dL (70-100); HEMOLYSIS < 15 (0-50); Lipase 24 U/L (23-300); Potassium 4.6 mmol/L (3.4-5.1); Sodium 136 mmol/L (137-145); Total Protein 7.1 g/dL (6.3-8.2)
[2021-07-05 20:25] LABS: Troponin I < 0.012 ng/mL (0.01-0.034)
[2021-07-05 20:29] LABS: CKMB % Relative Index 1.7 % (1.5-5.0); Creatine Kinase MB 2.23 ng/mL (<2.37)
--- NOTE | 2021-07-05 21:01 | ED.ARRPALP ---
HPI - Arrhythmia/Palpitations General Chief Complaint: Arrhythmia/Palpitations Stated Complaint: Feeling anxious, about heart condition, wants exam Time Seen by Provider: 07/05/21 21:01 Source: patient Mode of arrival: Ambulatory Limitations: no limitations History of Present Illness HPI narrative: 55-year-old gentleman recently admitted to [facility] from June 16 through the with atrial fibrillation. 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 Today he took his blood pressure prior to taking his blood pressure medications and noted that was a bit high and became anxious. He reports no chest pain, orthopnea, abdominal pain, vomiting, diarrhea, headaches, lower extremity edema. He notes that he can sense is atrial fibrillation is mild palpitations but this has not gotten any worse. He describes no acute neurologic symptoms Related Data Home Medications Medication Instructions Recorded Confirmed [fermented codliver o] #0 02/13/18 04/27/21 [natural calm] #0 02/13/18 04/27/21 cholecalciferol (vitamin D3) 125 5,000 unit PO #0 02/13/18 04/27/21 mcg (5,000 unit) capsule cyanocobalamin (vitamin B-12) 1,000 mcg IM X1 #0 02/13/18 04/27/21 1,000 mcg/mL injection solution Previous Rx's Medication Instructions Recorded chlorhexidine gluconate 0.12 % 15 ml BUCCAL BID #118 ml 02/07/21 mouthwash Allergies Allergy/AdvReac Type Severity Reaction Status Date / Time Penicillins [PENICILLINS] Allergy Unknown Verified 04/27/21 16:31 Review of Systems Review of Systems Narrative: Remainder of complete review of systems is otherwise unremarkable except for that included in the HPI. Patient History Medical History (Updated 07/05/21 @ 23:51 by Naomi Pérez MD) Dental infection New onset a-fib No significant medical problems Social History Smoking Status: Former smoker Smoking Status: Former smoker tobacco type: cigarettes alcohol intake frequency: holidays/special occasions only Substance Use Type: does not use Exam Narrative Exam Narrative: General: Healthy appearing, in no acute distress. Able to give a complete and coherent history. Well-nourished well-developed HEENT: Moist mucous membranes, normal sclera with reactive pupils, Neck: No JVD, supple Respiratory: Lungs are clear to auscultation, no wheezing no rales no rhonchi. Full and symmetrical air movement Cardiac: Irregular rate, no murmurs no bruits Abdomen: Soft, nontender, good bowel tones, no flank pain Skin: Warm and dry, no rashes Neurologic: Grossly neurologically intact with no obvious asymmetries or abnormalities Extremities: No trauma, well perfused, 1+ bilateral edema Psych: Cooperative, appropriate insight and affect Initial Vital Signs Initial Vital Signs: Vital Signs Temperature 97.9 F 07/05/21 19:27 Pulse Rate 56 L 07/05/21 19:27 Respiratory Rate 18 07/05/21 19:27 Blood Pressure 162/100 H 07/05/21 19:27 Pulse Oximetry 99 07/05/21 19:27 Course Orders Ordered: ED Orders 07/05/21 19:36 XR chest 1V Stat 07/05/21 19:43 Complete Blood Count AUTO DIFF Stat Comprehensive Metabolic Panel Stat Lipase Stat Troponin & CK Cardiac Panel Stat 07/05/21 20:46 EKG-12 Lead Stat Vital Signs Vital signs: Vital Signs - 8 hr 07/05/21 19:27 07/05/21 20:38 07/05/21 20:39 Temperature 97.9 F Pulse Rate 56 L 87 81 Respiratory Rate 18 Blood Pressure 162/100 H Pulse Oximetry 99 100 100 07/05/21 20:40 07/05/21 21:00 07/05/21 21:30 Temperature Pulse Rate 80 79 79 Respiratory Rate 17 16 Blood Pressure 138/89 122/83 135/93 H Pulse Oximetry 100 98 98 07/05/21 22:00 07/05/21 22:19 07/05/21 22:30 Temperature Pulse Rate 75 85 82 Respiratory Rate 16 19 17 Blood Pressure 131/84 144/94 H 139/89 Pulse Oximetry 97 86 L 98 MDM - Arrhythmia/Palpitations Lab Data Result diagrams: 07/05/21 19:43 07/05/21 19:43 Labs: Lab Results 07/05/21 07/05/21 Range/Units 19:43 19:43 WBC 6.3 (4.5-11.0) X10^3/uL RBC 4.72 (4.5-5.9) X10^6/uL Hgb 15.2 (13.5-17.5) g/dL Hct 45.5 (41-53) % MCV 96.3 (80-100) fL MCH 32.1 (26-34) PG MCHC 33.3 (30-36) % RDW 13.0 (11.6-14.8) % Plt Count 249 (150-400) X10^3/uL Neut % (Auto) 54.5 (50-75) % Lymph % (Auto) 35.2 (25-40) % [place] % (Auto) 7.6 (3-14) % Eos % (Auto) 1.9 L (2-4) % Baso % (Auto) 0.8 (0-2) % Neut # (Auto) 3500 (2301-3279) /uL Lymph # (Auto) 2200 (1029-8599) /uL [place] # (Auto) 500 (0-900) /uL Eos # (Auto) 100 (0-450) /uL Baso # (Auto) 100 (0-100) /uL Sodium 136 L (137-145) mmol/L Potassium 4.6 (3.4-5.1) mmol/L Chloride 104 (98-107) mmol/L Carbon Dioxide 27 (22-32) mmol/L BUN 20 (9-20) mg/dL Creatinine 1.22 (0.66-1.25) mg/dL Estimated GFR > 60.0 (>60) mL/min BUN/Creatinine Ratio 16.4 (6-22) Glucose 93 (70-100) mg/dL Calcium 9.1 (8.4-10.2) mg/dL Total Bilirubin 0.6 (0.2-1.3) mg/dL AST 26 (17-59) IU/L ALT 30 (<50) IU/L Alkaline Phosphatase 83 (38-126) U/L Total Creatine Kinase 128 (55-170) U/L CK-MB (CK-2) 2.23 (<2.37) ng/mL CK-MB (CK-2) Rel Index 1.7 (1.5-5.0) % Troponin I < 0.012 (0.01-0.034) ng/mL Total Protein 7.1 (6.3-8.2) g/dL Albumin 4.3 (3.5-5.0) g/dL Globulin 2.8 (1.7-4.1) g/dL Albumin/Globulin Ratio 1.5 (1.0-2.8) Lipase 24 (23-300) U/L Imaging Data Chest x-ray: Radiologist's Impresson: FINDINGS: Surgical changes and devices: None. Lungs and pleura: Lungs are clear. No pleural effusions or pneumothorax. Mediastinum: Mediastinal contours appear normal. Heart size is normal. Bones and chest wall: No suspicious bony lesions. Overlying soft tissues appear unremarkable. IMPRESSION: No acute cardiopulmonary abnormality. Dictated by: Michael Rowland M.D. on 07/05/2021 at 20:29 ECG Data Interpretation: Atrial fibrillation at a rate of 82 Normal axis No acute ischemic changes MDM Narrative Medical decision making narrative: 55-year-old gentleman with atrial fibrillation on all appropriate medications with all appropriate follow-up. Once medications are taken blood pressures have been quite controlled. No evidence of acute coronary syndrome infection or other complications of his atrial fibrillation at this time. He looking for reassurance and reassurance is given. Encouraged him to continue all of his usual medications and continue was follow-up with both his retail field merchandiser and primary care physicians as well as follow through with a sleep study scheduled for mid July. He is safe for home discharge Discharge Plan Departure Patient Disposition: Home Clinical Impression: Atrial fibrillation, Hypertension Instructions: DI for Atrial Fibrillation Activity Restrictions/Additional Instructions: Thank you for coming in today. It looks like he received excellent care at [facility] for your new onset atrial fibrillation. You appear to be on all of the perfect medications and they all seem to be working appropriately. Your workup today was reassuring. There is no evidence of heart attack or heart attack like syndrome. At this time, it is safe for you to go home. Please continue all of your usual medications. With your blood pressure, it is best to check your blood pressure reading about 2 hours after taking her medications. We want to know that the medication is working not necessarily what your blood pressure is before you take the medication. If you have worsening signs symptoms or concerns, please feel free to return to the emergency department Prescriptions: No Action chlorhexidine gluconate 0.12 % mouthwash 15 ml buccal BID Qty: 118 RF: 0 cyanocobalamin (vitamin B-12) 1,000 MCG/1 ML solution 1,000 mcg IM X1 Qty: 0 RF: 0 cholecalciferol (vitamin D3) 5,000 UNIT capsule 5,000 unit PO Qty: 0 RF: 0 [fermented codliver o] Qty: 0 RF: 0 [natural calm] Qty: 0 RF: 0 Referrals: Ro Castro PA-C [Primary Care Provider] -
--- NOTE | 2021-07-06 00:06 | PC.NURSE ---
Patient reports significant stressors, concerns and worries about his mother being discharged tomorrow after cardiac issues. Patient also had full cardiac workup at [facility] with new medications, has elevated BP reading and awaiting cardiology referral.
== END 2021-07-06 00:08 | disposition home or self-care (01) ==
PROVIDERS: Emergency Provider Emergency Medicine; PCP Physician Assistant
DX: I48.91 Unspecified atrial fibrillation (principal); I10 Essential (primary) hypertension; Z87.891 Personal history of nicotine dependence
CPT/HCPCS: 36415; 71045; 80053; 82550; 82553; 83690; 84484; 85025; 93005; 99283; 99284

== ENCOUNTER 2021-07-27 15:57 | Emergency (ER) | payer OTHER, MEDICAID, SELFPAY ==
[2021-07-27 16:06] VITALS: BP 150/84; PULSE 75; RESP 20; TEMP 37.1; O2SAT 100; BMI 26.6
[2021-07-27 16:30] VITALS: PULSE 81; RESP 21
[2021-07-27 16:36] VITALS: BP 131/87; PULSE 80; RESP 18
--- NOTE | 2021-07-27 16:44 | DI.RAD.S_ITS ---
PROCEDURE: XR CHEST 1V INDICATIONS: chest pain TECHNIQUE: One view of the chest was acquired. COMPARISON: [facility], CR, XR CHEST 1V, 07/05/2021, 19:37. FINDINGS: Surgical changes and devices: None. Lungs and pleura: Lungs are clear. No pleural effusions or pneumothorax. Mediastinum: Mediastinal contours appear normal. Heart size is normal. Bones and chest wall: No suspicious bony lesions. Overlying soft tissues appear unremarkable. IMPRESSION: No acute cardiopulmonary abnormality. Dictated by: Michael Rowland M.D. on 07/27/2021 at 17:02 Approved by: Michael Rowland M.D. on 07/27/2021 at 17:03
--- NOTE | 2021-07-27 16:46 | PC.NURSE ---
Patient tested positive for Covid on Sunday at [facility], symptom onset started on Sunday. and daughter positive and symptomatic.
[2021-07-27 16:55] LABS: Add Manual Diff / Slide Review NO; Basophils Absolute Auto 0 /uL (0-100); Basophils Percent Auto 0.4 % (0-2); Eosinophils Absolute Auto 100 /uL (0-450); Eosinophils Percent Auto 1.4 % (2-4); Hematocrit 42.1 % (41-53); Hemoglobin 14.1 g/dL (13.5-17.5); Lymphocytes Absolute Auto 1500 /uL (1100-4500); Lymphocytes Percent Auto 41.2 % (25-40); Mean Corpuscular HGB Conc 33.5 % (30-36); Mean Corpuscular Hemoglobin 31.8 PG (26-34); Mean Corpuscular Volume 94.9 fL (80-100); Monocytes Absolute Auto 300 /uL (0-900); Monocytes Percent Auto 9.6 % (3-14); Neutrophils Absolute Auto 1700 /uL (1500-7000); Neutrophils Percent Auto 47.4 % (50-75); Platelet Count 164 X10^3/uL (150-400); Red Blood Cell Count 4.43 X10^6/uL (4.5-5.9); White Blood Cell Count 3.6 X10^3/uL (4.5-11.0)
[2021-07-27 17:00] VITALS: BP 126/83; PULSE 83; RESP 21
[2021-07-27 17:04] LABS: Alanine Aminotransferase 24 IU/L (<50); Albumin 3.8 g/dL (3.5-5.0); Albumin Globulin Ratio 1.4 (1.0-2.8); Alkaline Phosphatase 84 U/L (38-126); Aspartate Aminotransferase 29 IU/L (17-59); BUN Creatinine Ratio 26.3 (6-22); Bilirubin Total 0.3 mg/dL (0.2-1.3); Blood Urea Nitrogen 21 mg/dL (9-20); Calcium 8.4 mg/dL (8.4-10.2); Carbon Dioxide 27 mmol/L (22-32); Chloride 105 mmol/L (98-107); Creatine Kinase 95 U/L (55-170); Estimated Glomerular Filt Rate > 60.0 mL/min (>60); Globulin 2.8 g/dL (1.7-4.1); Glucose 99 mg/dL (70-100); HEMOLYSIS 27 (0-50); Lipase 27 U/L (23-300); Magnesium 1.8 mg/dL (1.6-2.3); Potassium 4.3 mmol/L (3.4-5.1); Sodium 135 mmol/L (137-145); Total Protein 6.6 g/dL (6.3-8.2)
[2021-07-27 17:15] LABS: Troponin I < 0.012 ng/mL (0.01-0.034)
[2021-07-27 17:22] LABS: COVID19 -Nasal RAPID POSITIVE (Negative)
[2021-07-27 17:30] VITALS: BP 123/84; PULSE 78; RESP 22
--- NOTE | 2021-07-27 17:37 | ED.CHESTPAIN ---
HPI - Chest Pain General Chief Complaint: Chest Pain Stated Complaint: A-Fib, covid + Time Seen by Provider: 07/27/21 16:26 Source: patient Mode of arrival: Ambulatory Limitations: no limitations History of Present Illness HPI narrative: Patient is a 55-year-old male. Does have history of atrial fibrillation. Is on medication for this. He is unvaccinated against COVID. States that his started have symptoms a couple days ago. Soon afterwards he started to have symptoms periods throughout today he feels like that his heart rate is beating fast. No chest pain. Related Data Home Medications Medication Instructions Recorded Confirmed [fermented codliver o] #0 02/13/18 07/21/21 [natural calm] #0 02/13/18 07/21/21 cholecalciferol (vitamin D3) 125 5,000 unit PO #0 02/13/18 07/21/21 mcg (5,000 unit) capsule cyanocobalamin (vitamin B-12) 1,000 mcg IM X1 #0 02/13/18 07/21/21 1,000 mcg/mL injection solution apixaban [Eliquis] PO BID 07/21/21 07/21/21 diltiazem HCl 180 mg capsule,24 180 mg PO DAILY 07/21/21 07/21/21 hr,extended release lisinopril 20 mg tablet 20 mg PO DAILY 07/21/21 07/21/21 metoprolol succinate 200 mg 200 mg PO DAILY 07/21/21 07/21/21 capsule sprinkle, ext. release 24 hr Previous Rx's Medication Instructions Recorded chlorhexidine gluconate 0.12 % 15 ml BUCCAL BID #118 ml 02/07/21 mouthwash Allergies Allergy/AdvReac Type Severity Reaction Status Date / Time Penicillins [PENICILLINS] Allergy Unknown Verified 07/21/21 15:29 Review of Systems Constitutional Constitutional: Reports body ache(s), Denies fever(s) and Denies headache(s) ENT Ears, Nose, Mouth, and Throat: Denies headache(s) Cardiovascular Cardiovascular: Reports rapid heart rate Respiratory Respiratory: Reports chest congestion and Reports cough Gastrointestinal Gastrointestinal: Reports as per HPI and Reports system reviewed and no additional complaints, except as documented Musculoskeletal Musculoskeletal: Reports system reviewed and no additional complaints, except as documented Integumentary/Breasts Skin/Breast: Reports system reviewed and no additional complaints, except as documented Neurologic Neurologic: Denies headache(s) Hematologic/Lymphatic On Anticoagulants: Yes Patient History Medical History Dental infection New onset a-fib No significant medical problems Social History Smoking Status: Former smoker Smoking Status: Former smoker tobacco type: cigarettes alcohol intake frequency: holidays/special occasions only Substance Use Type: does not use Exam Initial Vital Signs Initial Vital Signs: Vital Signs Temperature 98.7 F 07/27/21 16:06 Pulse Rate 75 07/27/21 16:06 Respiratory Rate 20 07/27/21 16:06 Blood Pressure 150/84 H 07/27/21 16:06 Pulse Oximetry 100 07/27/21 16:06 Const General: cooperative and healthy appearing HENMT Head: normal to inspection Resp Effort & Inspection: normal respiratory effort and not tachypneic Auscultation: clear to auscultation bilaterally Cardio Rate: regular rate Rhythm: abnormal rhythm Skin General: no rashes or lesions noted Neuro General: patient alert, patient awake and moves all extremities Extrem General: normal to inspection and capillary refill normal Psych Appearance: grossly normal and well kempt Course Orders Ordered: ED Orders 07/27/21 16:22 COVID19 -Nasal swab/Pre-Proc Stat 07/27/21 16:31 Complete Blood Count AUTO DIFF Stat Comprehensive Metabolic Panel Stat Lipase Stat Magnesium Stat Troponin & CK Cardiac Panel Stat 07/27/21 16:44 XR chest 1V Stat Vital Signs Vital signs: Vital Signs - 8 hr 07/27/21 16:06 07/27/21 16:30 07/27/21 16:36 Temperature 98.7 F Pulse Rate 75 81 80 Respiratory Rate 20 21 18 Blood Pressure 150/84 H 131/87 Pulse Oximetry 100 07/27/21 17:00 07/27/21 17:30 Temperature Pulse Rate 83 78 Respiratory Rate 21 22 Blood Pressure 126/83 123/84 Pulse Oximetry MDM - Chest Pain Lab Data Attestation: I reviewed the patient's lab results. Result diagrams: 07/27/21 16:31 07/27/21 16:31 Labs: Lab Results 07/27/21 07/27/21 07/27/21 Range/Units 16:22 16:31 16:31 WBC 3.6 L (4.5-11.0) X10^3/uL RBC 4.43 L (4.5-5.9) X10^6/uL Hgb 14.1 (13.5-17.5) g/dL Hct 42.1 (41-53) % MCV 94.9 (80-100) fL MCH 31.8 (26-34) PG MCHC 33.5 (30-36) % RDW 13.0 (11.6-14.8) % Plt Count 164 (150-400) X10^3/uL Neut % (Auto) 47.4 L (50-75) % Lymph % (Auto) 41.2 H (25-40) % [place] % (Auto) 9.6 (3-14) % Eos % (Auto) 1.4 L (2-4) % Baso % (Auto) 0.4 (0-2) % Neut # (Auto) 1700 (3148-7224) /uL Lymph # (Auto) 1500 (7044-5615) /uL [place] # (Auto) 300 (0-900) /uL Eos # (Auto) 100 (0-450) /uL Baso # (Auto) 0 (0-100) /uL Sodium 135 L (137-145) mmol/L Potassium 4.3 (3.4-5.1) mmol/L Chloride 105 (98-107) mmol/L Carbon Dioxide 27 (22-32) mmol/L BUN 21 H (9-20) mg/dL Creatinine 0.80 (0.66-1.25) mg/dL Estimated GFR > 60.0 (>60) mL/min BUN/Creatinine Ratio 26.3 H (6-22) Glucose 99 (70-100) mg/dL Calcium 8.4 (8.4-10.2) mg/dL Magnesium 1.8 (1.6-2.3) mg/dL Total Bilirubin 0.3 (0.2-1.3) mg/dL AST 29 (17-59) IU/L ALT 24 (<50) IU/L Alkaline Phosphatase 84 (38-126) U/L Total Creatine Kinase 95 (55-170) U/L CK-MB (CK-2) TNP CK-MB (CK-2) Rel Index TNP Troponin I < 0.012 (0.01-0.034) ng/mL Total Protein 6.6 (6.3-8.2) g/dL Albumin 3.8 (3.5-5.0) g/dL Globulin 2.8 (1.7-4.1) g/dL Albumin/Globulin Ratio 1.4 (1.0-2.8) Lipase 27 (23-300) U/L SARS-CoV-2 (PCR) Positive H (Negative) Imaging Data Chest x-ray: Radiologist's Impression: [address] [id number] ReportSigned Patient: Valeriy BeasleyMR#: [id number]: [id number]:[id number]/Sex: 55 / MDate of Service: 07/27/21Loc: EDAccession Number: [id number] Procedure: XR chest 1V Ordering Provider: Haris Currie D.O. PROCEDURE: XR CHEST 1V INDICATIONS: chest pain TECHNIQUE: One view of the chest was acquired. COMPARISON: [facility], , XR CHEST 1V, 07/05/2021, 19:37. FINDINGS: Surgical changes and devices: None. Lungs and pleura: Lungs are clear. No pleural effusions or pneumothorax. Mediastinum: Mediastinal contours appear normal. Heart size is normal. Bones and chest wall: No suspicious bony lesions. Overlying soft tissues appear unremarkable. IMPRESSION: No acute cardiopulmonary abnormality. Dictated by: Michael Rowland M.D. on 07/27/2021 at 17:02 Approved by: Michael Rowland M.D. on 07/27/2021 at 17:03 ECG Data Attestation: I personally reviewed and interpreted this ECG as follows: Interpretation: Atrial fibrillation Ventricular rate 80 Normal axis Normal QRS No ST T wave changes MDM Narrative Medical decision making narrative: Nontoxic, no respiratory distress, is in atrial fibrillation but is rate controlled. I suspect that his atrial fibrillation is related to his COVID-19 and the stress on his heart related to this. Not hypoxic. No respiratory distress. No indication for antibiotics. No indication for cardioversion. Lab the patient continued take all of his medications as directed. He is given return precautions. He expressed understanding and agreement. Discharge Plan Departure Patient Disposition: Home Clinical Impression: COVID-19, Atrial fibrillation Instructions: DI for COVID-19 (Suspected or Confirmed ) Activity Restrictions/Additional Instructions: Recommend that you continue to take all of your medications as directed. Your to quarantine yourself for the next 10 days and be fever free for 24 hours and the rest of your symptoms need to be improving. Contact her primary doctor for follow-up. Return to the emergency department for any new or worsening symptoms. Prescriptions: No Action chlorhexidine gluconate 0.12 % mouthwash 15 ml buccal BID Qty: 118 RF: 0 cyanocobalamin (vitamin B-12) 1,000 MCG/1 ML solution 1,000 mcg IM X1 Qty: 0 RF: 0 cholecalciferol (vitamin D3) 5,000 UNIT capsule 5,000 unit PO Qty: 0 RF: 0 [fermented codliver o] Qty: 0 RF: 0 [natural calm] Qty: 0 RF: 0 apixaban [Eliquis] PO BID RF: 0 metoprolol succinate 200 mg capsule,sprinkle,ER 24hr 200 mg PO DAILY RF: 0 lisinopril 20 mg tablet 20 mg PO DAILY RF: 0 diltiazem HCl 180 mg capsule,extended release 24 hr 180 mg PO DAILY RF: 0 Referrals: Ro Castro PA-C [Primary Care Provider] -
== END 2021-07-27 17:59 | disposition home or self-care (01) ==
PROVIDERS: Emergency Provider Emergency Medicine; PCP Physician Assistant
DX: U07.1 COVID-19 (principal); I48.91 Unspecified atrial fibrillation; Z79.01 Long term (current) use of anticoagulants; R07.9 Chest pain, unspecified
CPT/HCPCS: 36415; 71045; 80053; 82550; 83690; 83735; 84484; 85025; 87635; 93005; 93010; 99283; 99284; C9803

== ENCOUNTER → 2021-08-03 08:15 | Outpatient (CLI) | payer OTHER, MEDICAID, SELFPAY ==
[2021-08-03 14:16] LABS: COVID19 -Nasal RAPID POSITIVE (Negative)
== END ==
PROVIDERS: PCP Physician Assistant; Visit Provider Physician Assistant
DX: U07.1 COVID-19 (principal)
CPT/HCPCS: 87635; C9803

== ENCOUNTER 2021-08-03 17:55 | Emergency (ER) | payer OTHER, MEDICAID, SELFPAY ==
[2021-08-03 18:01] VITALS: BP 121/88; PULSE 102; RESP 18; TEMP 37.2; O2SAT 98
--- NOTE | 2021-08-03 18:14 | ED.ARRPALP ---
HPI - Arrhythmia/Palpitations General Chief Complaint: Arrhythmia/Palpitations Stated Complaint: covid concerns, afib, blood pressure Time Seen by Provider: 08/03/21 18:08 Source: patient Mode of arrival: Ambulatory History of Present Illness HPI narrative: Patient is a 55-year-old male. Ten days ago was diagnosed with COVID-19. States he is no longer having any symptoms and has not had symptoms for about 1 week now. He is on immunized. Had a COVID test today for preparation for a stress test that he was scheduled to have in the next 48 hours. He got a call stating that his COVID test today was still positive. He stated that he started to have some palpitations. Took his blood pressure was 119/91. Currently is asymptomatic. He was concerned about the palpitations his history of atrial fibrillation which brought him into the emergency department to get checked out. Related Data Home Medications Medication Instructions Recorded Confirmed [fermented codliver o] #0 02/13/18 07/21/21 [natural calm] #0 02/13/18 07/21/21 cholecalciferol (vitamin D3) 125 5,000 unit PO #0 02/13/18 07/21/21 mcg (5,000 unit) capsule cyanocobalamin (vitamin B-12) 1,000 mcg IM X1 #0 02/13/18 07/21/21 1,000 mcg/mL injection solution apixaban [Eliquis] PO BID 07/21/21 07/21/21 diltiazem HCl 180 mg capsule,24 180 mg PO DAILY 07/21/21 07/21/21 hr,extended release lisinopril 20 mg tablet 20 mg PO DAILY 07/21/21 07/21/21 metoprolol succinate 200 mg 200 mg PO DAILY 07/21/21 07/21/21 capsule sprinkle, ext. release 24 hr Previous Rx's Medication Instructions Recorded chlorhexidine gluconate 0.12 % 15 ml BUCCAL BID #118 ml 02/07/21 mouthwash Allergies Allergy/AdvReac Type Severity Reaction Status Date / Time Penicillins [PENICILLINS] Allergy Unknown Verified 07/21/21 15:29 Review of Systems Constitutional Constitutional: Denies fever(s) and Denies headache(s) ENT Ears, Nose, Mouth, and Throat: Denies headache(s) Cardiovascular Cardiovascular: Reports as per HPI, Reports system reviewed and no additional complaints, except as documented and Denies dyspnea Respiratory Respiratory: Reports system reviewed and no additional complaints, except as documented, Denies cough and Denies dyspnea Gastrointestinal Gastrointestinal: Reports system reviewed and no additional complaints, except as documented Integumentary/Breasts Skin/Breast: Reports system reviewed and no additional complaints, except as documented Neurologic Neurologic: Denies headache(s) Hematologic/Lymphatic On Anticoagulants: Yes Patient History Medical History Dental infection New onset a-fib No significant medical problems Social History Smoking Status: Current some day smoker Smoking Status: Current some day smoker tobacco type: cigarettes alcohol intake frequency: holidays/special occasions only Substance Use Type: does not use Exam Initial Vital Signs Initial Vital Signs: Vital Signs Temperature 99.0 F 08/03/21 18:01 Pulse Rate 102 H 08/03/21 18:01 Respiratory Rate 18 08/03/21 18:01 Blood Pressure 121/88 08/03/21 18:01 Pulse Oximetry 98 08/03/21 18:01 Const General: cooperative, comfortable and well developed HENMT Head: normal to inspection and normocephalic Resp Effort & Inspection: normal respiratory effort Auscultation: clear to auscultation bilaterally Cardio Rate: regular rate Rhythm: abnormal rhythm GI Inspection: normal to inspection Neuro General: patient alert, patient awake, patient oriented x3 and moves all extremities Extrem General: No edema Psych Appearance: grossly normal and well kempt Course Orders Ordered: ED Orders 08/03/21 18:09 EKG-12 Lead Stat Vital Signs Vital signs: Vital Signs - 8 hr 08/03/21 18:01 Temperature 99.0 F Pulse Rate 102 H Respiratory Rate 18 Blood Pressure 121/88 Pulse Oximetry 98 MDM - Arrhythmia/Palpitations ECG Data Attestation: I personally reviewed and interpreted this ECG as follows: Interpretation: Atrial fibrillation Ventricular rate 82 Normal axis Normal QRS Normal QTC No ST T wave changes MDM Narrative Medical decision making narrative: Patient is currently asymptomatic. Has a history of atrial fibrillation. Is on Eliquis. Has no COVID symptoms. Is 10 days past his initial diagnosis. I discussed with him his positive test and how some individual's continue to have positive test for greater than 10 days after there diagnosis. Informed her that he needed to contact the provider who is ordering the stress test to discuss when he should be retested when this test can be rescheduled. No further intervention needed in the emergency department. He was given return precautions and follow-up instructions. He expressed understanding and agreement. Discharge Plan Departure Patient Disposition: Home Clinical Impression: Palpitations, Atrial fibrillation Instructions: DI for Atrial Fibrillation Activity Restrictions/Additional Instructions: Contact the provider who ordered the stress test for you to see when they would like you to be retested. Continue to take all of your medications as directed. Return to the emergency department for any new or worsening symptoms. Prescriptions: No Action chlorhexidine gluconate 0.12 % mouthwash 15 ml buccal BID Qty: 118 RF: 0 cyanocobalamin (vitamin B-12) 1,000 MCG/1 ML solution 1,000 mcg IM X1 Qty: 0 RF: 0 cholecalciferol (vitamin D3) 5,000 UNIT capsule 5,000 unit PO Qty: 0 RF: 0 [fermented codliver o] Qty: 0 RF: 0 [natural calm] Qty: 0 RF: 0 apixaban [Eliquis] PO BID RF: 0 metoprolol succinate 200 mg capsule,sprinkle,ER 24hr 200 mg PO DAILY RF: 0 lisinopril 20 mg tablet 20 mg PO DAILY RF: 0 diltiazem HCl 180 mg capsule,extended release 24 hr 180 mg PO DAILY RF: 0 Referrals: Ro Castro PA-C [Primary Care Provider] -
== END 2021-08-03 19:11 | disposition home or self-care (01) ==
PROVIDERS: Emergency Provider Emergency Medicine; PCP Physician Assistant
DX: R00.2 Palpitations (principal); I48.91 Unspecified atrial fibrillation; Z79.01 Long term (current) use of anticoagulants; U07.1 COVID-19
CPT/HCPCS: 93005; 99282; 99283

== ENCOUNTER → 2021-09-05 10:25 | Outpatient (CLI) | payer OTHER, MEDICAID, SELFPAY ==
[2021-09-05 11:36] LABS: COVID19 -Nasal RAPID Negative (Negative)
== END ==
PROVIDERS: PCP Physician Assistant; Referring Provider Internal Medicine Cardiovascular Disease; Visit Provider Internal Medicine Cardiovascular Disease
DX: Z20.822 Contact with and (suspected) exposure to COVID-19 (principal); I50.9 Heart failure, unspecified
CPT/HCPCS: 87635

== ENCOUNTER → 2021-09-09 07:47 | Outpatient (CLI) | payer OTHER, MEDICAID, SELFPAY ==
--- NOTE | 2021-09-09 | DI.ECHO.S_ITS ---
[place] [facility]---------+ [facility] +---------+ : : [address] : : : : [id number] : : : : Phone: [phone]+ Echocardiogram Report + + :Name: ANALISA CARRANZA Study Date: 09/09/2021 Height: 69 in : :[facility] ReadingLocation: Weight: 195 lb : : Gender: Male BSA: 2.0 m2 : :: 1965 Age: 55 yrs BP: 130/92 mmHg: :Reason For Study: CHF : : Performed By: Irving Leroy : :Referring: MARIA ELENA PATTON E : + + Interpretation Summary Afib with variable rate; heart rate is 80-109 bpm during exam. Normal LV size and wall thickness; mild global hypokinesis with EF 40-45%. Mild LA enlargement; otherwise normal chamber sizes. No significant valvular abnormalities. No prior study available for comparison. Procedure: A two-dimensional transthoracic echocardiogram with color flow and Doppler was performed. The study quality was technically good. There is no prior echocardiogram noted for this patient. The patient was in atrial fibrillation with controlled ventricular rate during the exam. The patient had a heart rate of 80-109 beats per minute. Left Ventricle: The left ventricle is normal in size. There is normal left ventricular wall thickness. The ejection fraction is estimated to be 40-45%. There is mild global hypokinesis of the left ventricle. Right Ventricle: The right ventricle is at the upper limits of normal in size. The right ventricular systolic function is normal. Atria: The left atrium is mildly dilated. Right atrial size is normal. There is no Doppler evidence for an atrial septal defect. Mitral Valve: The mitral valve is normal in structure and function. There is trace mitral regurgitation. Aortic Valve: The aortic valve is trileaflet. The aortic valve opens well. No aortic regurgitation is present. Tricuspid Valve: The tricuspid valve is normal in structure and function. There is trace tricuspid regurgitation. The right ventricular systolic pressure is estimated to be at least 21 mmHg based on an estimated right atrial pressure of 3 mm Hg. Pulmonic Valve: The pulmonic valve leaflets are thin and pliable; valve motion is normal. There is trace pulmonic regurgitation. Great Vessels: The aortic root is normal size. The ascending aorta is mildly enlarged. The pulmonary artery is normal size. The IVC is of normal diameter and collapses greater than 50% with a sniff. This suggests a low right atrial pressure of 3 mm Hg. Pericardium/ Pleura There is a trivial pericardial effusion noted. There are no echocardiographic indications of cardiac tamponade. There is no pleural effusion. MMode/2D Measurements & Calculations LVIDd: 4.7 cm LVOT diam: 2.3 cm LVIDs: 3.1 cm Ao root diam: 3.5 cm FS: 34.1 % asc Aorta Diam: 3.6 cm EPSS: 0.39 cm Ao Arch Diam (Prox Trans): 2.8 cm IVSd: 0.88 cm LVPWd: 0.90 cm LV chavez. diameter/BSA (cm/m^2): 2.3 LV sys. diameter/BSA (cm/m^2): 1.5 LA dimension: 4.3 cm RA long axis: 5.7 cm LA A2 area: 26.5 cm2 RA area: 20.5 cm2 LA A4 area: 24.7 cm2 RA vol: 62.9 ml LA length (vol): 6.5 cm RA : 30.8 ml/m2 LA vol: 85.2 ml IVC diam: 1.8 cm LA vol index: 41.7 ml/m2 RVD1 (basal): 4.1 cm RVD2 (mid): 3.6 cm TAPSE: 2.1 cm Doppler Measurements & Calculations Ao V2 max: 118.0 cm/sec LVOT Max Albin: 104.5 cm/sec Ao V2 mean: 89.5 cm/sec LV V1 max P.4 mmHg Ao max P.6 mmHg LV V1 VTI: 18.3 cm Ao mean P.4 mmHg KIRSTIN(I,D): 3.5 cm2 Ao V2 VTI: 22.1 cm KIRSTIN(V,D): 3.8 cm2 sev ratio: 0.83 KIRSTIN indexed to BSA (cm^2/m^2): 1.7 MV E max albin: 103.6 cm/sec TR max albin: 209.8 cm/sec MV A max albin: 1.5 cm/sec TR max P.6 mmHg MV E/A: 70.4 PA V2 max: 73.9 cm/sec Med Peak E' Albin: 7.6 cm/sec PA V2 mean: 56.4 cm/sec E/E' med: 13.6 PA mean P.4 mmHg Lat Peak E' Albin: 11.5 cm/sec PA pr(Accel): 27.6 mmHg E/E' lat: 9.0 E/e' average: 11.3 MV dec time: 0.12 sec SV(LVOT): 77.8 ml Electronically signed by: Radha Shea M.D. on [place] Physician:09/13/2021 03:22 PM
== END ==
PROVIDERS: PCP Physician Assistant; Referring Provider Internal Medicine Cardiovascular Disease; Visit Provider Internal Medicine Cardiovascular Disease
DX: I50.30 Unspecified diastolic (congestive) heart failure (principal); I77.89 Other specified disorders of arteries and arterioles
CPT/HCPCS: 93306

== ENCOUNTER → 2021-11-09 07:35 | Outpatient (CLI) | payer OTHER, MEDICAID, SELFPAY ==
[2021-11-09 08:31] LABS: COVID19 -Nasal RAPID Negative (Negative)
--- NOTE | 2021-11-09 11:59 | PM.TREADMILL ---
Cardiac Stress Test Report Referral & Results Date Patient Seen: 11/09/21 Time Patient Seen: 11:59 Requesting provider: Carmel Verdin Indication: diastolic heart failure Rest ECG: atrial fibrillation with a controlled ventricular rate Procedure Note: After Lexiscan injection, no dyspnea but 6-7/10 sternum chest tightness without associated symptoms, radiation or ecg changes and resolved in less than 1 minute without any intervention. No new ectopy MIBI images pending Impression: symptom positive Lexiscan stress test MIBI images pending Please note: Actual ECG tracings can be found in the PACS system.
--- NOTE | 2021-11-09 18:55 | DI.NM.S_ITS ---
DATE OF SERVICE: 11/09/2021 PROCEDURE PERFORMED: Pharmacologic vasodilator stress and rest myocardial perfusion imaging with gating to assess ejection fraction and regional wall motion. ORDERING PROVIDER: Dr. Carmel Verdin. INDICATIONS: The patient is a 55-year-old male with recent diagnosis of atrial fibrillation and heart failure. CARDIAC STRESS: Per protocol, 0.4 mg of regadenoson was infused, augmented by walking on the treadmill. With this, he had a normal hemodynamic response, achieving a maximum heart rate of 155 BPM (93% of his predicted maximum). He had brief mild chest discomfort that resolved within 1 minute. His resting ECG shows atrial fibrillation at [address] segments. With stress, there were no significant ST-segment shifts or other arrhythmias. Per protocol, 25.5 millicuries of technetium-99m Myoview were injected and he was imaged 10 minutes later using a gated SPECT acquisition protocol. Earlier in the day while at rest, he had been injected with 12.2 millicuries of technetium-99m Myoview was imaged 20 minutes later, again using a gated SPECT acquisition protocol. FINDINGS: 1. Raw data: There is good myocardial tracer uptake. Lung/heart ratio was normal at 0.37 with a normal TID ratio of 0.85. 2. Quantitated gated SPECT: Post-stress ejection fraction is estimated at 70% without any focal wall motion abnormality. Resting ejection fraction is estimated at 65% with a normal end-diastolic volume of 110 mL. 3. Myocardial perfusion imaging: Post-stress supine images shows a fairly normal myocardial perfusion pattern without any significant perfusion defects, supported by normal perfusion imaging in the prone position. The resting images show a similar perfusion pattern without any areas of improvement. IMPRESSION: 1. Normal myocardial perfusion study. 2. No evidence for myocardial ischemia or previous myocardial infarction. 3. Normal left ventricular systolic function without any focal wall motion abnormality. 4. Mild chest discomfort with regadenoson infusion, but no EKG evidence of ischemia. He had atrial fibrillation with a controlled ventricular response at rest with moderate heart rate accentuation with stress. There were no other arrhythmias. Valeriy Beasley - DARLENE/eunice/anu doc#: [id number]/job#: [id number] dd: 11/09/2021 17:22:00 dt: 11/09/2021 18:33:00 DICTATING MD/COPIES TO: Adrian Bartlett MD; Carmel Verdin M.D. COPIES MNE: GONZALO;
== END ==
PROVIDERS: PCP Physician Assistant; Referring Provider Internal Medicine Cardiovascular Disease; Visit Provider Internal Medicine Cardiovascular Disease
DX: I50.30 Unspecified diastolic (congestive) heart failure (principal); I48.91 Unspecified atrial fibrillation; Z20.822 Contact with and (suspected) exposure to COVID-19
CPT/HCPCS: 78452; 87635; 93017; A9502; J2785

== ENCOUNTER 2022-07-01 14:46 | Emergency (ER) | payer OTHER, MEDICAID, SELFPAY ==
[2022-07-01 14:51] VITALS: BP 133/89; PULSE 75; RESP 12; TEMP 36.2; O2SAT 100; BMI 31.0
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
[2022-07-01 16:41] VITALS: PULSE 77; O2SAT 100
[2022-07-01 16:42] VITALS: BP 140/83; PULSE 76; O2SAT 100
[2022-07-01 17:00] VITALS: PULSE 76; O2SAT 99
[2022-07-01 17:30] VITALS: PULSE 75; O2SAT 100
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
[2022-07-01 17:56] VITALS: BP 134/80; PULSE 74; RESP 18; O2SAT 100
== END 2022-07-01 17:59 | disposition home or self-care (01) ==
PROVIDERS: Emergency Provider Emergency Medicine; PCP Physician Assistant
DX: S09.90XA Unspecified injury of head, initial encounter (principal); M54.2 Cervicalgia; S00.01XA Abrasion of scalp, initial encounter; W22.8XXA Striking against or struck by other objects, initial encounter; Z79.01 Long term (current) use of anticoagulants
CPT/HCPCS: 70450; 72125; 99283

== ENCOUNTER 2022-07-13 12:08 | Emergency (ER) | payer OTHER, MEDICAID, SELFPAY ==
[2022-07-13 12:25] VITALS: BP 117/93; PULSE 98; RESP 18; O2SAT 98; BMI 31.7
[2022-07-13 13:25] VITALS: BP 126/81; PULSE 90; RESP 16; O2SAT 98
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
[2022-07-13 15:31] VITALS: BP 141/94; PULSE 64; RESP 18; O2SAT 100
== END 2022-07-13 15:32 | disposition home or self-care (01) ==
PROVIDERS: Emergency Provider Physician Assistant Medical; PCP Physician Assistant
DX: S39.012A Strain of muscle, fascia and tendon of lower back, initial encounter (principal); M54.2 Cervicalgia; V89.2XXA Person injured in unspecified motor-vehicle accident, traffic, initial encounter
CPT/HCPCS: 72040; 72072; 72100; 99283

== ENCOUNTER → 2022-12-20 14:18 | Outpatient (CLI) | payer OTHER, MEDICAID, SELFPAY ==
[2022-12-20 15:12] LABS: Alanine Aminotransferase 37 IU/L (<50); Albumin 4.1 g/dL (3.5-5.0); Albumin Globulin Ratio 1.3 (1.0-2.8); Alkaline Phosphatase 93 U/L (38-126); Aspartate Aminotransferase 30 IU/L (17-59); BUN Creatinine Ratio 16.7 (6-22); Bilirubin Total 0.3 mg/dL (0.2-1.3); Blood Urea Nitrogen 19 mg/dL (9-20); Calcium 8.7 mg/dL (8.4-10.2); Carbon Dioxide 27 mmol/L (22-32); Chloride 103 mmol/L (98-107); Estimated Glomerular Filt Rate > 60 mL/min (>60); Globulin 3.2 g/dL (1.7-4.1); Glucose 90 mg/dL (70-100); HEMOLYSIS < 15 (0-50); Potassium 4.4 mmol/L (3.4-5.1); Sodium 137 mmol/L (137-145); Total Protein 7.3 g/dL (6.3-8.2)
[2022-12-20 16:17] LABS: TSH w/ Reflex to FT4 0.74 uIU/mL (0.47-4.68)
== END ==
PROVIDERS: PCP Family Medicine; Referring Provider Physician Assistant Medical; Visit Provider Physician Assistant Medical
DX: I48.0 Paroxysmal atrial fibrillation (principal); Z79.899 Other long term (current) drug therapy
CPT/HCPCS: 36415; 80053; 84443

== ENCOUNTER 2023-01-24 18:25 | Emergency (ER) | payer OTHER, MEDICAID, SELFPAY ==
[2023-01-24 18:33] VITALS: BP 109/68; PULSE 91; RESP 18; TEMP 37; O2SAT 98; BMI 36.5
--- NOTE | 2023-01-24 18:38 | DI.CT.S_ITS ---
PROCEDURE: CT HEAD/BRAIN WO CON INDICATIONS: headache, shelving dropped on head, on thinners TECHNIQUE: Noncontrast 4.5 mm thick angled axial sections acquired from the foramen magnum to the vertex, with coronal and sagittal reformats. For radiation dose reduction, the following was used: automated exposure control, adjustment of mA and/or kV according to patient size. COMPARISON: [facility], CT, CT HEAD/BRAIN WO CON, 07/01/2022, 15:31. FINDINGS: Image quality: Excellent. CSF spaces: Basal cisterns are patent. No extra-axial fluid collections. Ventricles are normal in size and shape. Brain: No midline shift. No intracranial masses or hemorrhage. Serra-white matter interface is normal. Skull and face: Calvarium and visualized facial bones are intact, without suspicious lesions. Sinuses: Visualized sinuses and mastoids are clear. IMPRESSION: No CT evidence of acute intracranial abnormalities. No significant changes from previous study. Dictated by: Stevan Ryan M.D. on 01/24/2023 at 17:57 Approved by: Stevan Ryan M.D. on 01/24/2023 at 17:57
--- NOTE | 2023-01-24 18:42 | ED.HEATRA ---
HPI - Head Injury General Chief complaint: Head Injury Stated complaint: head injury Time Seen by Provider: 01/24/23 18:28 Source: patient Mode of arrival: Ambulatory History of Present Illness HPI Narrative: 57-year-old male smoker with history of AFib on Eliquis presents for evaluation of a head injury just prior to arrival. He was working with a shelving unit that slipped and fell, striking him in the back of the head. He has full recall of the event denies any loss of consciousness. He denies any nausea, vomiting nor visual complaints such as blurred or double vision. He has no trouble with speech or extremity pain, numbness, weakness or tingling. He denies any neck pain. 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 that if he ever has a head injury while on Eliquis he should be seen Related Data Home Medications Medication Instructions Recorded Confirmed [fermented codliver o] ##0 02/13/18 12/07/22 [natural calm] ##0 02/13/18 12/07/22 cholecalciferol (vitamin D3) 125 5,000 unit PO ##0 02/13/18 12/07/22 mcg (5,000 unit) capsule cyanocobalamin (vitamin B-12) 1,000 mcg IM X1 ##0 02/13/18 12/07/22 1,000 mcg/mL injection solution apixaban [Eliquis] PO BID 07/21/21 12/07/22 diltiazem HCl 180 mg capsule,24 180 mg PO DAILY 07/21/21 12/07/22 hr,extended release lisinopril 20 mg tablet 20 mg PO DAILY 07/21/21 12/07/22 metoprolol succinate 200 mg 200 mg PO DAILY 07/21/21 12/07/22 capsule sprinkle, ext. release 24 hr Previous Rx's Medication Instructions Recorded chlorhexidine gluconate 0.12 % 15 ml buccal BID #118 mL 02/07/21 mouthwash cyclobenzaprine 10 mg tablet 10 mg PO TID PRN muscle spasm #14 07/13/22 tabs ibuprofen 400 mg tablet 400 mg PO Q8H #20 tabs 07/13/22 albuterol sulfate 90 mcg/actuation 2 puff inhalation Q4-6H PRN 12/07/22 aerosol inhaler shortness of breath or wheezing #8.5 grams azithromycin 250 mg tablet See Rx Instructions PO .COMPLEX #6 12/07/22 tabs inhalational spacing device #1 ea 12/07/22 (BreatheRite MDI Spacer) Allergies Allergy/AdvReac Type Severity Reaction Status Date / Time Penicillins [PENICILLINS] Allergy Unknown Verified 12/07/22 19:04 Review of Systems Review of Systems Narrative: GENERAL: Denies chills, fatigue, malaise, fever, sweats. HEENT: Denies sinus pain, ear pain, sore throat, difficulty swallowing, dizziness. RESPIRATORY: Denies dyspnea, cough, wheezing, hemoptysis, sputum. CARDIOVASCULAR: Denies chest pain, palpitations, orthopnea, edema, GASTROINTESTINAL: Denies nausea, vomiting, abdominal pain, diarrhea, constipation, melena. : Denies dysuria, frequency, incontinence, hematuria, urinary retention. MUSCULOSKELETAL: denies weakness, joint pain, or bony pain SKIN: Denies rash, skin lesions, or other NEUROLOGIC: Denies weakness, headache, numbness, change in speech, confusion, seizures, incoordination. PSYCHIATRIC: No concerning psychosocial issues. 12 point review of systems is negative except for those stated above Patient History Medical History Dental infection New onset a-fib No significant medical problems Social History Smoking Status: Current some day smoker Smoking Status: Current some day smoker tobacco type: cigarettes alcohol intake frequency: holidays/special occasions only Substance Use Type: does not use Exam Narrative Exam Narrative: GENERAL: [57] year old patient appears stated age. Well-developed patient, in no obvious distress. GCS 15 HEAD: Atraumatic. Normocephalic. No contusion, abrasion or evidence of depressed skull fracture EYES: Pupils equal round and reactive. No hyphema Extraocular motions intact. No scleral icterus. No injection or drainage. ENT: Nose without bleeding, purulent drainage. Throat without erythema, tonsillar hypertrophy or exudate. Airway patent. NECK: Trachea midline. Non tender, no step-offs or crepitance CARDIOVASCULAR: Regular rate and rhythm without murmurs, gallops, or rubs. RESPIRATORY: Clear to auscultation. Breath sounds equal bilaterally. No wheezes, rales, or rhonchi. GASTROINTESTINAL: Abdomen soft, non-tender, nondistended. EXTREMITIES: No edema or joint tenderness. BACK: Nontender without deformity or crepitance. No flank tenderness. NEURO: AOx3. SKIN: No rash or erythema of visible areas Initial Vital Signs Initial Vital Signs: Vital Signs Temperature 98.6 F 01/24/23 18:33 Pulse Rate 91 H 01/24/23 18:33 Respiratory Rate 18 01/24/23 18:33 Blood Pressure 109/68 01/24/23 18:33 Pulse Oximetry 98 01/24/23 18:33 Oxygen Delivery Method Room Air 01/24/23 18:33 Course Orders Ordered: ED Orders 01/24/23 18:38 CT head/brain wo con Stat Vital Signs Vital signs: Vital Signs - 8 hr 01/24/23 18:33 Temperature 98.6 F Pulse Rate 91 H Respiratory Rate 18 Blood Pressure 109/68 Pulse Oximetry 98 Oxygen Delivery Method Room Air MDM - Head Injury MDM Narrative Medical decision making narrative: [57] year old patient presents with Multiple etiologies for patient's symptoms considered including, but not limited to: [Contusion, concussion, intracranial hemorrhage versus other] Prior Charts reviewed in our EMR Primary Historian: patient Imaging reviewed: CT of head notes Patient with low risk head injury while on blood thinners has reassuring imaging. No evidence of concussion, patient asymptomatic. Findings and discharge diagnosis discussed with patient/family followed by verbalization of understanding Return precautions discussed with patient/family whom verbalize understanding of diagnosis and plan Discharge Plan Departure Patient Disposition: Home Clinical Impression: Contusion of scalp Instructions: DI for Closed Head Injury Activity Restrictions/Additional Instructions: *You have been diagnosed with [scalp contusion. As we discussed your history and physical exam as well as CT scan are reassuring and there is no evidence of bleeding anterior brain or fracture of your skull.] *What to do: *Please continue to take your regular medications as directed. *Please follow up with your primary care provider in 2-3 days, call for an appointment. Let them know you were seen in the Emergency Department and that we ask that you be seen in follow up. We will electronically transmit a record of today's note if your PCP is in our system *If you do not have a primary care provider please contact the [facility] Resource line at [phone]. They will ask some questions about your medical history and help get you set up with a doctor in the community. *Return to Emergency Department if you should have any new, worsening or concerning symptoms, such as [fever greater than 101 F, shaking chills, worsening pain, persistent vomiting or other bothersome symptoms] Prescriptions: No Action chlorhexidine gluconate 0.12 % mouthwash 15 ml buccal BID Qty: 118 0RF albuterol sulfate 90 mcg/actuation HFA aerosol inhaler 2 puff inhalation Q4-6H PRN (Reason: shortness of breath or wheezing) Qty: 8.5 0RF (DME) B[employer]he[employer] MDI Spacer Spacer See Rx Instructions .Route Qty: 1 0RF Rx Instructions: As directed azithromycin 250 mg tablet See Rx Instructions PO .COMPLEX Qty: 6 0RF Rx Instructions: For 250 mg dose pack: take 500 mg today (day 1), then 250 mg for 4 days (days 2-5) PO cyanocobalamin (vitamin B-12) 1,000 MCG/1 ML solution 1,000 mcg IM X1 Qty: 0 cholecalciferol (vitamin D3) 5,000 UNIT capsule 5,000 unit PO Qty: 0 [fermented codliver o] Qty: 0 [natural calm] Qty: 0 cyclobenzaprine 10 mg tablet 10 mg PO TID PRN (Reason: muscle spasm) Qty: 14 0RF ibuprofen 400 mg tablet 400 mg PO Q8H Qty: 20 0RF apixaban [Eliquis] PO BID metoprolol succinate 200 mg capsule,sprinkle,ER 24hr 200 mg PO DAILY lisinopril 20 mg tablet 20 mg PO DAILY diltiazem HCl 180 mg capsule,extended release 24 hr 180 mg PO DAILY Referrals: Zoila Moore ARNP [Primary Care Provider] - Stand Alone Forms: Patient Portal/API
== END 2023-01-24 20:14 | disposition home or self-care (01) ==
PROVIDERS: Emergency Provider Emergency Medicine; PCP Family Medicine
DX: S00.03XA Contusion of scalp, initial encounter (principal); Z79.01 Long term (current) use of anticoagulants; W20.8XXA Other cause of strike by thrown, projected or falling object, initial encounter
CPT/HCPCS: 70450; 99281; 99283

== ENCOUNTER 2023-05-24 18:17 | Emergency (ER) | payer OTHER, MEDICAID, SELFPAY ==
[2023-05-24 18:44] VITALS: BP 133/57; PULSE 80; RESP 14; TEMP 36.6; O2SAT 97; BMI 32.6
--- NOTE | 2023-05-24 20:01 | PC.NURSE ---
Pt reports over the past 10 days has had increasing pain to left upper extremity. States at times when he isn't moving it, it causes pins and needle in backside of upper arm. pt reports increased pain with different movements, mainly rotating the arm or raising at the shoulder. With passive movement, states pain started about the 90 degree point when adducted. Pt is unsure if injury happened.
[2023-05-24 20:04] VITALS: BP 100/57; PULSE 73; RESP 14; O2SAT 97
--- NOTE | 2023-05-24 20:15 | ED.GENADULT ---
HPI - General Adult General Chief complaint: Extremity Injury, Upper Stated complaint: lt arm issues, A fib Time Seen by Provider: 05/24/23 19:57 Source: patient Mode of arrival: Ambulatory History of Present Illness HPI narrative: Patient is a 57-year-old male. He does have history of atrial fibrillation. He states that he is not feel like his heart is beating fast or skipping beats however he is having some pain in his left arm specifically around his left elbow. Has been going on for the past couple days. He is also having some neck pain. Has not tried anything for his symptoms. States he was concerned that potentially given his history of atrial fibrillation is left arm pain that he maybe having a heart attack. Related Data Home Medications Medication Instructions Recorded Confirmed [fermented codliver o] ##0 02/13/18 12/07/22 [natural calm] ##0 02/13/18 12/07/22 cholecalciferol (vitamin D3) 125 5,000 unit PO ##0 02/13/18 12/07/22 mcg (5,000 unit) capsule cyanocobalamin (vitamin B-12) 1,000 mcg IM X1 ##0 02/13/18 12/07/22 1,000 mcg/mL injection solution apixaban [Eliquis] PO BID 07/21/21 12/07/22 diltiazem HCl 180 mg capsule,24 180 mg PO DAILY 07/21/21 12/07/22 hr,extended release lisinopril 20 mg tablet 20 mg PO DAILY 07/21/21 12/07/22 metoprolol succinate 200 mg 200 mg PO DAILY 07/21/21 12/07/22 capsule sprinkle, ext. release 24 hr Previous Rx's Medication Instructions Recorded chlorhexidine gluconate 0.12 % 15 ml buccal BID #118 mL 02/07/21 mouthwash cyclobenzaprine 10 mg tablet 10 mg PO TID PRN muscle spasm #14 07/13/22 tabs ibuprofen 400 mg tablet 400 mg PO Q8H #20 tabs 07/13/22 albuterol sulfate 90 mcg/actuation 2 puff inhalation Q4-6H PRN 12/07/22 aerosol inhaler shortness of breath or wheezing #8.5 grams azithromycin 250 mg tablet See Rx Instructions PO .COMPLEX #6 12/07/22 tabs inhalational spacing device #1 ea 12/07/22 (BreatheRite MDI Spacer) Allergies Allergy/AdvReac Type Severity Reaction Status Date / Time Penicillins [PENICILLINS] Allergy Unknown Verified 05/24/23 18:48 Review of Systems Cardiovascular Cardiovascular: Reports system reviewed and no additional complaints, except as documented Musculoskeletal Musculoskeletal: Reports system reviewed and no additional complaints, except as documented Integumentary/Breasts Skin/Breast: Reports system reviewed and no additional complaints, except as documented Neurologic Neurologic: Reports system reviewed and no additional complaints, except as documented Patient History Medical History Dental infection New onset a-fib No significant medical problems Social History Smoking Status: Current some day smoker Smoking Status: Current some day smoker tobacco type: cigarettes alcohol intake frequency: holidays/special occasions only Substance Use Type: does not use Exam Initial Vital Signs Initial Vital Signs: Vital Signs Temperature 98 F 05/24/23 18:44 Pulse Rate 80 05/24/23 18:44 Respiratory Rate 14 05/24/23 18:44 Blood Pressure 133/57 L 05/24/23 18:44 Pulse Oximetry 97 05/24/23 18:44 Oxygen Delivery Method Room Air 05/24/23 18:44 HENMT Head: normal to inspection and normocephalic Resp Effort & Inspection: normal respiratory effort Auscultation: clear to auscultation bilaterally Cardio Rate: regular rate Rhythm: regular rhythm Pulses: radial pulses present on the left Skin General: no rashes or lesions noted Neuro General: patient alert, patient awake, oriented and moves all extremities Sensory Exam: no sensory deficits noted Extrem General: normal to inspection and capillary refill normal Other: Full range motion of left wrist left elbow left shoulder Course Orders Ordered: ED Orders 05/24/23 18:50 EKG-12 Lead Stat Vital Signs Vital signs: Vital Signs - 8 hr 05/24/23 18:44 05/24/23 20:04 Temperature 98 F Pulse Rate 80 73 Respiratory Rate 14 14 Blood Pressure 133/57 L 100/57 L Pulse Oximetry 97 97 Oxygen Delivery Method Room Air Room Air Medical Decision Making ECG Data Attestation: I personally reviewed and interpreted this ECG as follows: Interpretation: Sinus rhythm Ventricular rate is 77 Normal axis Normal QRS Normal QTC No ST T wave changes MDM Narrative Medical decision making narrative: Patient is sinus rhythm on his EKG. I have a high suspicion that his left arm symptoms are musculoskeletal. Potentially a ulnar nerve issue given the location of the symptoms were a cervical radiculopathy. Patient states that he has been evaluated for cervical issues in the past in has not had any problems with this. No further workup required here in the emergency department. Discussed conservative things he can try to help with his left arm discomfort. Will have him contact his primary doctor for follow-up. He was given return precautions. He expressed understanding and agreement. Discharge Plan Departure Patient Disposition: Home Clinical Impression: Arm pain, left Instructions: How To Perform RICE (Rest, Ice, Compress, Elevate) Activity Restrictions/Additional Instructions: Continue to take all of your medications as directed. You can take Tylenol to help with your arm pain however because your on Eliquis you should try to avoid medications such as Motrin/ibuprofen/Naprosyn. Contact your primary doctor for a follow-up. Prescriptions: No Action chlorhexidine gluconate 0.12 % mouthwash 15 ml buccal BID Qty: 118 0RF albuterol sulfate 90 mcg/actuation HFA aerosol inhaler 2 puff inhalation Q4-6H PRN (Reason: shortness of breath or wheezing) Qty: 8.5 0RF (DME) BreatheRite MDI Spacer Spacer See Rx Instructions .Route Qty: 1 0RF Rx Instructions: As directed azithromycin 250 mg tablet See Rx Instructions PO .COMPLEX Qty: 6 0RF Rx Instructions: For 250 mg dose pack: take 500 mg today (day 1), then 250 mg for 4 days (days 2-5) PO cyanocobalamin (vitamin B-12) 1,000 MCG/1 ML solution 1,000 mcg IM X1 Qty: 0 cholecalciferol (vitamin D3) 5,000 UNIT capsule 5,000 unit PO Qty: 0 [fermented codliver o] Qty: 0 [natural calm] Qty: 0 cyclobenzaprine 10 mg tablet 10 mg PO TID PRN (Reason: muscle spasm) Qty: 14 0RF ibuprofen 400 mg tablet 400 mg PO Q8H Qty: 20 0RF apixaban [Eliquis] PO BID metoprolol succinate 200 mg capsule,sprinkle,ER 24hr 200 mg PO DAILY lisinopril 20 mg tablet 20 mg PO DAILY diltiazem HCl 180 mg capsule,extended release 24 hr 180 mg PO DAILY Referrals: Zoila Moore ARNP [Primary Care Provider] - Stand Alone Forms: Patient Portal/API
== END 2023-05-24 20:21 | disposition home or self-care (01) ==
PROVIDERS: Emergency Provider Emergency Medicine; PCP Family Medicine
DX: M79.602 Pain in left arm (principal); M54.2 Cervicalgia; R07.9 Chest pain, unspecified
CPT/HCPCS: 93005; 99281; 99283

== ENCOUNTER → 2023-08-16 16:19 | Outpatient (CLI) | payer OTHER, MEDICAID, SELFPAY ==
--- NOTE | 2023-08-16 | DI.RAD.S_ITS ---
PROCEDURE: XR FOOT RT 2V INDICATIONS: rt foot pain TECHNIQUE: 2 views of the foot were acquired. COMPARISON: [facility], CR, XR FOOT LT MIN 3V, 04/03/2019, 13:14. FINDINGS: Bones: No acute fractures or dislocations. No suspicious bony lesions. Mild 1st MTP joint degenerative changes. Degenerative changes of scattered IP joints also present. Soft tissues: No tibiotalar joint effusion. IMPRESSION: No acute osseous abnormality. If symptoms persist, follow-up radiographs and/or CT or MRI may be helpful for further evaluation. Dictated by: Michael Green M.D. on 08/17/2023 at 8:26 Approved by: Michael Green M.D. on 08/17/2023 at 8:31
[2023-08-16 17:56] LABS: Add Manual Diff / Slide Review NO; Basophils Absolute Auto 0 /uL (0-100); Basophils Percent Auto 0.6 % (0-2); Eosinophils Absolute Auto 200 /uL (0-450); Eosinophils Percent Auto 2.6 % (2-4); Hemoglobin 12.2 g/dL (13.5-17.5); Lymphocytes Absolute Auto 1600 /uL (1100-4500); Lymphocytes Percent Auto 24.3 % (25-40); Mean Corpuscular HGB Conc 34.1 % (30-36); Mean Corpuscular Hemoglobin 32.4 PG (26-34); Mean Corpuscular Volume 95.1 fL (80-100); Monocytes Absolute Auto 500 /uL (0-900); Monocytes Percent Auto 8.1 % (3-14); Neutrophils Absolute Auto 4300 /uL (1500-7000); Neutrophils Percent Auto 64.4 % (50-75); Platelet Count 269 X10^3/uL (150-400); Red Blood Cell Count 3.78 X10^6/uL (4.5-5.9); Red Cell Distribution Width 13.3 % (11.6-14.8); White Blood Cell Count 6.6 X10^3/uL (4.5-11.0)
[2023-08-16 18:16] LABS: Alanine Aminotransferase 28 IU/L (<50); Albumin 3.9 g/dL (3.5-5.0); Albumin Globulin Ratio 1.4 (1.0-2.8); Alkaline Phosphatase 67 U/L (38-126); Aspartate Aminotransferase 28 IU/L (17-59); BUN Creatinine Ratio 14.1 (6-22); Bilirubin Total 0.4 mg/dL (0.2-1.3); Blood Urea Nitrogen 21 mg/dL (9-20); Calcium 8.6 mg/dL (8.4-10.2); Carbon Dioxide 25 mmol/L (22-32); Chloride 104 mmol/L (98-107); Estimated Glomerular Filt Rate 55 mL/min (>60); Gamma Glutamyl Transpeptidase 16 U/L (15-73); Globulin 2.8 g/dL (1.7-4.1); Glucose 91 mg/dL (70-100); HEMOLYSIS < 15 (0-50); Potassium 4.3 mmol/L (3.4-5.1); Sodium 135 mmol/L (137-145); Total Protein 6.7 g/dL (6.3-8.2)
[2023-08-16 18:32] LABS: Free T4, Direct Thyroxine 1.69 ng/dL (0.78-2.19)
[2023-08-16 18:46] LABS: Thyroid Stimulating Hormone 0.752 uIU/mL (0.47-4.68)
[2023-08-17 04:38] LABS: Cholesterol HDL Ratio 3.9 ratio (0.0-5.0); Cholesterol,Total 211 mg/dL (100-199); HDL Cholesterol 54 mg/dL (>39); LDL Cholesterol Cal 135 mg/dL (0-99); Triglycerides 121 mg/dL (0-149); VLDL Cholesterol Cal 22 mg/dL (5-40)
[2023-08-18 02:32] LABS: Hep C Virus Ab w/Reflex Quant NEGATIVE s/c (NEGATIVE)
[2023-08-19 08:29] LABS: PSA Free % 48.6 % (.); PSA, Total 0.7 ng/mL (0.0-4.0)
== END ==
PROVIDERS: PCP Family Medicine; Referring Provider Nurse Practitioner Family; Visit Provider Nurse Practitioner Family
DX: M79.671 Pain in right foot (principal); Z11.59 Encounter for screening for other viral diseases; R74.01 Elevation of levels of liver transaminase levels; Z13.220 Encounter for screening for lipoid disorders; R35.1 Nocturia
CPT/HCPCS: 36415; 73620; 80053; 80061; 82977; 84153; 84154; 84439; 84443; 85025; 86803

== ENCOUNTER 2023-10-08 16:14 | Emergency (ER) | payer OTHER, MEDICAID, SELFPAY ==
[2023-10-08 16:24] VITALS: BP 133/74; PULSE 88; RESP 17; TEMP 36.7; O2SAT 97; BMI 34.9
--- NOTE | 2023-10-08 16:28 | DI.CT.S_ITS ---
PROCEDURE: CT HEAD/BRAIN WO CON INDICATIONS: Fall, hit head on thinners TECHNIQUE: Noncontrast 4.5 mm thick angled axial sections acquired from the foramen magnum to the vertex, with coronal and sagittal reformats. For radiation dose reduction, the following was used: automated exposure control, adjustment of mA and/or kV according to patient size. COMPARISON: [facility], CT, CT HEAD/BRAIN WO CON, 01/24/2023, 18:44. FINDINGS: Image quality: Excellent. CSF spaces: Basal cisterns are patent. No extra-axial fluid collections. Ventricles are normal in size and shape. Brain: No midline shift. No intracranial masses or hemorrhage. Serra-white matter interface is normal. Skull and face: Calvarium and visualized facial bones are intact, without suspicious lesions. Sinuses: [id number] mucosal thickening in bilateral maxillary sinuses is seen. Bilateral mastoids are well aerated. IMPRESSION: 1. No acute intracranial abnormalities. No acute skull fracture. 2. Bilateral maxillary sinusitis. Dictated by: Stevan Ryan M.D. on 10/08/2023 at 17:38 Approved by: Stevan Ryan M.D. on 10/08/2023 at 17:39
--- NOTE | 2023-10-08 16:28 | DI.CT.S_ITS ---
PROCEDURE: CT CERVICAL SPINE WO CON INDICATIONS: Fall, hit head on thinners TECHNIQUE: Noncontrast 3 mm thick sections acquired from the skull base to the T4 level. Sagittal and coronal reformats were then constructed. For radiation dose reduction, the following was used: automated exposure control, adjustment of mA and/or kV according to patient size. COMPARISON: [facility], CT, CT CERVICAL SPINE WO CON, 07/01/2022, 15:31. FINDINGS: Image quality: Excellent. Bones: No fractures or dislocations. Straightening of normal cervical lordosis is seen. Loss of disc height, degenerative endplate changes and bilateral facet hypertrophic changes are noted throughout cervical spine. Dorsal disc osteophyte complex formation at C3-4 through C6-7 levels are seen causing [id number] central canal stenosis and mild bilateral neural foraminal narrowing more notably at C4-5 level. Visualized superior ribs are intact. Soft tissues: Prevertebral soft tissues are normal in thickness. No paravertebral hematomas. No apical pneumothoraces. IMPRESSION: 1. No acute cervical spine fracture or dislocation. 2. Degenerative disc disease throughout cervical spine as above not significantly changed from prior study. Dictated by: Stevan Ryan M.D. on 10/08/2023 at 17:36 Approved by: Stevan Ryan M.D. on 10/08/2023 at 17:38
--- NOTE | 2023-10-08 16:29 | DI.RAD.S_ITS ---
PROCEDURE: XR SHOULDER LT MIN 2V INDICATIONS: Fall, hit shoulder, pain TECHNIQUE: 3 views of the shoulder were acquired. COMPARISON: [facility], CR, XR SHOULDER RT MIN 2V, 04/27/2021, 17:01. FINDINGS: Bones: No fractures or dislocations. No suspicious bony lesions. Visualized ribs appear intact. Soft tissues: No suspicious soft tissue calcifications. IMPRESSION: No visualized acute fracture or dislocation. However, if clinical concern and/or pain persist, short interval imaging followup in 7-10 days is recommended, as occult injury cannot be definitively excluded. Dictated by: Nazia Eric M.D. on 10/08/2023 at 16:48 Approved by: Nazia Eric M.D. on 10/08/2023 at 16:50
--- NOTE | 2023-10-08 21:00 | ED.HEATRA ---
HPI - Head Injury General Chief complaint: Head Injury Stated complaint: Fell hit head, Blood thinners Time Seen by Provider: 10/08/23 21:00 Source: patient Mode of arrival: Ambulatory History of Present Illness HPI Narrative: Patient is a 57-year-old male history of atrial fibrillation on Eliquis presents today with fall. He reports that he was up on a ramp pushing a 4 paul up. But it needed some more pushing eventually the ramp the 4 paul and him all fell to the ground. He hurt his left shoulder. He did not really hit his head or lose consciousness no nausea or vomiting no numbness tingling or weakness. Overall he does not need anything for pain he is having no other complaints. He came in because Cardiology told him to come if there was ever trauma or injury due to Eliquis. Related Data Home Medications Medication Instructions Recorded Confirmed [fermented codliver o] ##0 02/13/18 12/07/22 [natural calm] ##0 02/13/18 12/07/22 cholecalciferol (vitamin D3) 125 5,000 unit PO ##0 02/13/18 12/07/22 mcg (5,000 unit) capsule cyanocobalamin (vitamin B-12) 1,000 mcg IM X1 ##0 02/13/18 12/07/22 1,000 mcg/mL injection solution apixaban [Eliquis] PO BID 07/21/21 12/07/22 diltiazem HCl 180 mg capsule,24 180 mg PO DAILY 07/21/21 12/07/22 hr,extended release lisinopril 20 mg tablet 20 mg PO DAILY 07/21/21 12/07/22 metoprolol succinate 200 mg 200 mg PO DAILY 07/21/21 12/07/22 capsule sprinkle, ext. release 24 hr Previous Rx's Medication Instructions Recorded chlorhexidine gluconate 0.12 % 15 ml buccal BID #118 mL 02/07/21 mouthwash cyclobenzaprine 10 mg tablet 10 mg PO TID PRN muscle spasm #14 07/13/22 tabs ibuprofen 400 mg tablet 400 mg PO Q8H #20 tabs 07/13/22 albuterol sulfate 90 mcg/actuation 2 puff inhalation Q4-6H PRN 12/07/22 aerosol inhaler shortness of breath or wheezing #8.5 grams azithromycin 250 mg tablet See Rx Instructions PO .COMPLEX #6 12/07/22 tabs inhalational spacing device #1 ea 12/07/22 (BreatheRite MDI Spacer) Allergies Allergy/AdvReac Type Severity Reaction Status Date / Time Penicillins [PENICILLINS] Allergy Unknown Verified 10/08/23 16:24 Review of Systems Review of Systems ROS Unobtainable: All systems reviewed & are unremarkable except as noted in HPI and below Patient History Medical History New onset a-fib Dental infection No significant medical problems Social History Smoking Status: Current some day smoker Smoking Status: Current some day smoker tobacco type: cigarettes alcohol intake frequency: holidays/special occasions only Substance Use Type: does not use Exam Initial Vital Signs Initial Vital Signs: Vital Signs Temperature 98.1 F 10/08/23 16:24 Pulse Rate 88 10/08/23 16:24 Respiratory Rate 17 10/08/23 16:24 Blood Pressure 133/74 10/08/23 16:24 Pulse Oximetry 97 10/08/23 16:24 Oxygen Delivery Method Room Air 10/08/23 16:24 GENERAL: Well-appearing, well-nourished and in no acute distress. HEENT: Head atraumatic,EOMI, pupils reactive, NECK: Supple no vertebral tenderness no step-off full range of motion CARDIOVASCULAR: Regular rate and rhythm without murmurs, rubs or gallops. RESPIRATORY: Breath sounds equal bilaterally, no wheezes rales or rhonchi. ABDOMEN: Soft, nontender. Normoactive bowel sounds all 4 quadrants. No guarding or rebound. : No CVA tenderness EXTREMITIES: Normal range of motion, no clubbing or edema. Neurovascularly intact Able to move shoulder without significant pain or tenderness NEUROLOGICAL: Alert and oriented x4.Normal gait and speech. Cranial nerves II through XII grossly intact. SKIN: Warm, dry, no laceration, no petechiae, no rashes or lesions. Course Orders Ordered: ED Orders 10/08/23 16:28 CT cervical spine wo con Stat CT head/brain wo con Stat 10/08/23 16:29 XR shoulder LT min 2V Stat Vital Signs Vital signs: Vital Signs - 8 hr 10/08/23 16:24 Temperature 98.1 F Pulse Rate 88 Respiratory Rate 17 Blood Pressure 133/74 Pulse Oximetry 97 Oxygen Delivery Method Room Air MDM - Head Injury MDM Narrative Medical decision making narrative: Patient 57-year-old male on Eliquis presents today after a fall. Really complaining of some left-sided neck and shoulder pain Imaging shoulder x-ray head CT and cervical spine CT do not show any intracranial hemorrhage fracture or other abnormality. Patient is awake alert without any nausea vomiting numbness tingling weakness or any symptoms. Here out of precaution. At this time not even needing any pain medication. No need for any further workup or evaluation. Discharge Plan Departure Patient Disposition: Home Clinical Impression: Acute shoulder pain, Fall Instructions: DI for Shoulder Pain Activity Restrictions/Additional Instructions: *You have been diagnosed with left shoulder pain, cervical strain *What to do: At this time imaging is negative increase activity as tolerated expect to be sore. *Continue to take medications as directed Tylenol as needed for pain *Follow up with your primary care provider in 2-3 days or call [phone] *Return to ER if you should have increasing numbness tingling weakness persistent vomiting change in mental status or any new, worsening or concerning symptoms Prescriptions: No Action chlorhexidine gluconate 0.12 % mouthwash 15 ml buccal BID Qty: 118 0RF albuterol sulfate 90 mcg/actuation HFA aerosol inhaler 2 puff inhalation Q4-6H PRN (Reason: shortness of breath or wheezing) Qty: 8.5 0RF (DME) BreatheRite MDI Spacer Spacer See Rx Instructions .Route Qty: 1 0RF Rx Instructions: As directed azithromycin 250 mg tablet See Rx Instructions PO .COMPLEX Qty: 6 0RF Rx Instructions: For 250 mg dose pack: take 500 mg today (day 1), then 250 mg for 4 days (days 2-5) PO cyanocobalamin (vitamin B-12) 1,000 MCG/1 ML solution 1,000 mcg IM X1 Qty: 0 cholecalciferol (vitamin D3) 5,000 UNIT capsule 5,000 unit PO Qty: 0 [fermented codliver o] Qty: 0 [natural calm] Qty: 0 cyclobenzaprine 10 mg tablet 10 mg PO TID PRN (Reason: muscle spasm) Qty: 14 0RF ibuprofen 400 mg tablet 400 mg PO Q8H Qty: 20 0RF apixaban [Eliquis] PO BID metoprolol succinate 200 mg capsule,sprinkle,ER 24hr 200 mg PO DAILY lisinopril 20 mg tablet 20 mg PO DAILY diltiazem HCl 180 mg capsule,extended release 24 hr 180 mg PO DAILY Referrals: Zoila Moore ARNP [Primary Care Provider] - Stand Alone Forms: Patient Portal/API
== END 2023-10-08 21:23 | disposition home or self-care (01) ==
PROVIDERS: Emergency Provider Emergency Medicine; PCP Family Medicine
DX: S16.1XXA Strain of muscle, fascia and tendon at neck level, initial encounter (principal); M25.512 Pain in left shoulder; W18.30XA Fall on same level, unspecified, initial encounter; Z79.01 Long term (current) use of anticoagulants
CPT/HCPCS: 70450; 72125; 73030; 99284

== ENCOUNTER → 2023-12-20 08:35 | Outpatient (CLI) | payer OTHER, MEDICAID, SELFPAY ==
[2023-12-20 09:38] LABS: Add Manual Diff / Slide Review NO; Basophils Absolute Auto 100 /uL (0-100); Basophils Percent Auto 1.1 % (0-2); Eosinophils Absolute Auto 300 /uL (0-450); Hematocrit 40.1 % (41-53); Hemoglobin 13.6 g/dL (13.5-17.5); Lymphocytes Absolute Auto 1800 /uL (1100-4500); Lymphocytes Percent Auto 36.4 % (25-40); Mean Corpuscular HGB Conc 33.8 % (30-36); Mean Corpuscular Hemoglobin 32.7 PG (26-34); Mean Corpuscular Volume 96.5 fL (80-100); Monocytes Absolute Auto 500 /uL (0-900); Monocytes Percent Auto 10.1 % (3-14); Neutrophils Absolute Auto 2400 /uL (1500-7000); Neutrophils Percent Auto 47.4 % (50-75); Platelet Count 283 X10^3/uL (150-400); Red Blood Cell Count 4.16 X10^6/uL (4.5-5.9)
[2023-12-20 09:49] LABS: Hemoglobin A1C% w Est Avg Glu 5.5 % (4.0-6.0)
[2023-12-20 10:06] LABS: HEMOLYSIS < 15 (0-50); Iron 69 ug/dL (49-181)
[2023-12-20 10:12] LABS: Alanine Aminotransferase 31 IU/L (<50); Albumin Globulin Ratio 1.4 (1.0-2.8); Alkaline Phosphatase 73 U/L (38-126); Aspartate Aminotransferase 29 IU/L (17-59); BUN Creatinine Ratio 15.6 (6-22); Bilirubin Total 0.5 mg/dL (0.2-1.3); Blood Urea Nitrogen 21 mg/dL (9-20); Calcium 8.8 mg/dL (8.4-10.2); Carbon Dioxide 25 mmol/L (22-32); Chloride 106 mmol/L (98-107); Estimated Glomerular Filt Rate > 60 mL/min (>60); Globulin 2.8 g/dL (1.7-4.1); Glucose 95 mg/dL (70-100); HEMOLYSIS < 15 (0-50); Potassium 5.3 mmol/L (3.4-5.1); Sodium 139 mmol/L (137-145); Total Protein 6.8 g/dL (6.3-8.2)
[2023-12-20 10:16] LABS: Percent Iron Saturation 19 % (20-50); Total Iron Binding Capacity 364 ug/dL (261-462); Transferrin 322 mg/dL (206-381)
[2023-12-20 11:54] LABS: Ferritin 49 ng/mL (18-464)
[2023-12-20 12:25] LABS: Folate 8.2 ng/mL (2.76-20.0); Vitamin B12 762 pg/mL (239-931)
[2023-12-21 03:19] LABS: Cholesterol HDL Ratio 4.1 ratio (0.0-5.0); Cholesterol,Total 240 mg/dL (100-199); HDL Cholesterol 59 mg/dL (>39); LDL Cholesterol Cal 169 mg/dL (0-99); Triglycerides 73 mg/dL (0-149); VLDL Cholesterol Cal 12 mg/dL (5-40)
== END ==
PROVIDERS: PCP Family Medicine; Referring Provider Nurse Practitioner Family; Visit Provider Nurse Practitioner Family
DX: E78.5 Hyperlipidemia, unspecified (principal); E16.1 Other hypoglycemia; D64.9 Anemia, unspecified
CPT/HCPCS: 36415; 80053; 80061; 82607; 82728; 82746; 83036; 83540; 83550; 85025

== ENCOUNTER → 2024-02-28 10:09 | Outpatient (CLI) | payer OTHER, MEDICAID, SELFPAY ==
--- NOTE | 2024-02-28 10:14 | DI.RAD.S_ITS ---
PROCEDURE: XR WRIST RT MIN 3V INDICATIONS: RIGHT WRIST PAIN TECHNIQUE: 4 views of the wrist were acquired. COMPARISON: [facility], , XR HAND RT MIN 3V, 02/28/2024, 10:28. FINDINGS: Bones: No acute fractures or dislocations. No suspicious bony lesions. Appearance of old 5th metacarpal fracture. Soft tissues: No suspicious soft tissue calcifications. IMPRESSION: No visualized acute fracture or dislocation. However, if clinical concern and/or pain persist, short interval imaging followup in 7-10 days is recommended, as occult injury cannot be definitively excluded. Dictated by: Nazia Eric M.D. on 02/28/2024 at 13:23 Approved by: Nazia Eric M.D. on 02/28/2024 at 13:23
--- NOTE | 2024-02-28 10:14 | DI.RAD.S_ITS ---
PROCEDURE: XR HAND RT MIN 3V INDICATIONS: RIGHT HAND PAIN TECHNIQUE: 3 views of the hand(s) acquired. COMPARISON: [facility], CR, XR WRIST RT MIN 3V, 02/28/2024, 10:28. [facility], CR, HAND 3V LEFT, 10/13/2016, 15:46. FINDINGS: Bones: No acute fractures or dislocations. Old 5th metacarpal fracture. Carpal bones are normally aligned. No suspicious bony lesions. Soft tissues: No suspicious soft tissue calcifications. IMPRESSION: No visualized acute fracture or dislocation. However, if clinical concern and/or pain persist, short interval imaging followup in 7-10 days is recommended, as occult injury cannot be definitively excluded. Dictated by: Nazia Eric M.D. on 02/28/2024 at 13:22 Approved by: Nazia Eric M.D. on 02/28/2024 at 13:23
[2024-02-28 11:23] LABS: BUN Creatinine Ratio 15.7 (6-22); Blood Urea Nitrogen 21 mg/dL (9-20); Calcium 8.8 mg/dL (8.4-10.2); Carbon Dioxide 27 mmol/L (22-32); Chloride 106 mmol/L (98-107); Estimated Glomerular Filt Rate > 60 mL/min (>60); Glucose 89 mg/dL (70-100); HEMOLYSIS < 15 (0-50); Potassium 4.6 mmol/L (3.4-5.1); Sodium 137 mmol/L (137-145)
[2024-02-28 11:50] LABS: TSH w/ Reflex to FT4 0.95 uIU/mL (0.47-4.68)
[2024-02-28 11:52] LABS: Testosterone 817 ng/dL (71.8-623)
== END ==
LOC: LAB 10:12
PROVIDERS: PCP Nurse Practitioner Family; Referring Provider Nurse Practitioner Family; Visit Provider Nurse Practitioner Family
DX: N52.9 Male erectile dysfunction, unspecified (principal); R53.83 Other fatigue; I10 Essential (primary) hypertension; M79.641 Pain in right hand; M25.531 Pain in right wrist
CPT/HCPCS: 36415; 73110; 73130; 80048; 84403; 84443

== ENCOUNTER 2024-03-16 10:58 | Emergency (ER) | payer OTHER, MEDICAID, SELFPAY ==
[2024-03-16] VITALS (10 sets, daily range): BP systolic 140–179; BP diastolic 73–90; PULSE 62–68; RESP 18; TEMP 37.1; O2SAT 98–100; BMI 31.1
--- NOTE | 2024-03-16 11:13 | DI.CT.S_ITS ---
PROCEDURE: CT HEAD/BRAIN WO CON INDICATIONS: 58-year-old male with head vs board trauma x1 day. Anticoagulation. TECHNIQUE: Noncontrast 4.5 mm thick angled axial sections acquired from the foramen magnum to the vertex, with coronal and sagittal reformats. For radiation dose reduction, the following was used: automated exposure control, adjustment of mA and/or kV according to patient size. COMPARISON: [facility], CT, CT HEAD/BRAIN WO CON, 10/08/2023, 17:16. FINDINGS: Image quality: Diagnostic. CSF spaces: Basal cisterns are patent. No extra-axial fluid collections. Ventricles are normal in size and shape. Brain: No midline shift. No intracranial masses or hemorrhage. Serra-white matter interface is normal. Skull and face: Calvarium and visualized facial bones are intact, without suspicious lesions. Sinuses: Visualized sinuses and mastoids are clear. IMPRESSION: Unremarkable CT of the brain Approved by: Topher Graham M.D. on 03/16/2024 at 11:44
--- NOTE | 2024-03-16 11:54 | ED_ITS ---
HPI - Head Injury General Chief complaint: Head Injury Stated complaint: Head injury both sides on thinners Time Seen by Provider: 03/16/24 11:02 Source: patient Mode of arrival: Ambulatory History of Present Illness HPI Narrative: Patient is a 58-year-old male. Is on Eliquis for atrial fibrillation. Is here for evaluation of head injury. He states that he hit the right side of his head on a board. Just a few minutes later he hit the left side on the same board. There was no loss of consciousness. No break in the skin. No neck pain. No other injuries from the event. He was told that if he ever hit his head being on the blood thinners that he should come in to be evaluated. He denies headache or vision changes or balance issues. Related Data Home Medications Medication Instructions Recorded Confirmed [fermented codliver o] ##0 02/13/18 12/07/22 [natural calm] ##0 02/13/18 12/07/22 cholecalciferol (vitamin D3) 125 5,000 unit PO ##0 02/13/18 12/07/22 mcg (5,000 unit) capsule cyanocobalamin (vitamin B-12) 1,000 mcg IM X1 ##0 02/13/18 12/07/22 1,000 mcg/mL injection solution apixaban [Eliquis] PO BID 07/21/21 12/07/22 diltiazem HCl 180 mg capsule,24 180 mg PO DAILY 07/21/21 12/07/22 hr,extended release lisinopril 20 mg tablet 20 mg PO DAILY 07/21/21 12/07/22 metoprolol succinate 200 mg 200 mg PO DAILY 07/21/21 12/07/22 capsule sprinkle, ext. release 24 hr Previous Rx's Medication Instructions Recorded chlorhexidine gluconate 0.12 % 15 ml buccal BID #118 mL 02/07/21 mouthwash cyclobenzaprine 10 mg tablet 10 mg PO TID PRN muscle spasm #14 07/13/22 tabs ibuprofen 400 mg tablet 400 mg PO Q8H #20 tabs 07/13/22 albuterol sulfate 90 mcg/actuation 2 puff inhalation Q4-6H PRN 12/07/22 aerosol inhaler shortness of breath or wheezing #8.5 grams azithromycin 250 mg tablet See Rx Instructions PO .COMPLEX #6 12/07/22 tabs inhalational spacing device #1 ea 12/07/22 (BreatheRite MDI Spacer) Allergies Allergy/AdvReac Type Severity Reaction Status Date / Time Penicillins [PENICILLINS] Allergy Unknown Verified 03/16/24 11:22 Review of Systems Review of Systems Narrative: See HPI Patient History Medical History New onset a-fib Dental infection No significant medical problems Social History Smoking Status: Current some day smoker Smoking Status: Current some day smoker tobacco type: cigarettes alcohol intake frequency: holidays/special occasions only Substance Use Type: does not use Exam Initial Vital Signs Initial Vital Signs: Vital Signs Temperature 98.8 F 03/16/24 11:18 Pulse Rate 66 03/16/24 11:18 Respiratory Rate 18 03/16/24 11:18 Blood Pressure 179/90 H 03/16/24 11:18 Pulse Oximetry 99 03/16/24 11:18 Oxygen Delivery Method Room Air 03/16/24 11:18 HENMT Head: normal to inspection, normocephalic, atraumatic, No abrasion, No contusion, No hematoma and No laceration Face and sinus: normal facial exam Skin General: no rashes or lesions noted Neuro General: patient alert, patient awake, patient oriented x3 and moves all extremities Speech: speech normal Gait: normal gait Extrem Other: No gross deformities Course Orders Ordered: ED Orders 03/16/24 11:13 CT head/brain wo con Stat Vital Signs Vital signs: Vital Signs - 8 hr 03/16/24 11:18 03/16/24 11:25 03/16/24 11:26 Temperature 98.8 F Pulse Rate 66 64 Respiratory Rate 18 Blood Pressure 179/90 H Pulse Oximetry 99 98 99 Oxygen Delivery Method Room Air 03/16/24 11:26 03/16/24 11:30 03/16/24 11:30 Temperature Pulse Rate 65 Respiratory Rate Blood Pressure 159/89 H 142/85 H Pulse Oximetry 99 Oxygen Delivery Method 03/16/24 12:02 03/16/24 12:03 03/16/24 12:03 Temperature Pulse Rate 64 Respiratory Rate Blood Pressure 174/87 H Pulse Oximetry 100 98 Oxygen Delivery Method 03/16/24 12:30 03/16/24 12:31 03/16/24 12:31 Temperature Pulse Rate 62 63 Respiratory Rate Blood Pressure 140/89 Pulse Oximetry 100 100 Oxygen Delivery Method MDM - Head Injury Imaging Data CT scan - head: Radiologist's Impression: PROCEDURE: CT HEAD/BRAIN WO CON INDICATIONS: 58-year-old male with head vs board trauma x1 day. Anticoagulation. TECHNIQUE: Noncontrast 4.5 mm thick angled axial sections acquired from the foramen magnum to the vertex, with coronal and sagittal reformats. For radiation dose reduction, the following was used: automated exposure control, adjustment of mA and/or kV according to patient size. COMPARISON: [facility], CT, CT HEAD/BRAIN WO CON, 10/08/2023, 17:16. FINDINGS: Image quality: Diagnostic. CSF spaces: Basal cisterns are patent. No extra-axial fluid collections. Ventricles are normal in size and shape. Brain: No midline shift. No intracranial masses or hemorrhage. Serra-white matter interface is normal. Skull and face: Calvarium and visualized facial bones are intact, without suspicious lesions. Sinuses: Visualized sinuses and mastoids are clear. IMPRESSION: Unremarkable CT of the brain [facility] Narrative Medical decision making narrative: Head CT shows no acute pathology despite his head injuries and being on blood thinners. No other injuries from the event. No skin changes requiring intervention. Patient was given return precautions and follow-up instructions. Discharge Plan Departure Patient Disposition: Home Clinical Impression: Closed head injury Instructions: DI for Closed Head Injury Activity Restrictions/Additional Instructions: Continue to take all of your medications as directed. Return to the emergency department for new or worsening symptoms. Prescriptions: No Action chlorhexidine gluconate 0.12 % mouthwash 15 ml buccal BID Qty: 118 0RF albuterol sulfate 90 mcg/actuation HFA aerosol inhaler 2 puff inhalation Q4-6H PRN (Reason: shortness of breath or wheezing) Qty: 8.5 0RF (DME) BreatheRite MDI Spacer Spacer See Rx Instructions .Route Qty: 1 0RF Rx Instructions: As directed azithromycin 250 mg tablet See Rx Instructions PO .COMPLEX Qty: 6 0RF Rx Instructions: For 250 mg dose pack: take 500 mg today (day 1), then 250 mg for 4 days (days 2-5) PO cyanocobalamin (vitamin B-12) 1,000 MCG/1 ML solution 1,000 mcg IM X1 Qty: 0 cholecalciferol (vitamin D3) 5,000 UNIT capsule 5,000 unit PO Qty: 0 [fermented codliver o] Qty: 0 [natural calm] Qty: 0 cyclobenzaprine 10 mg tablet 10 mg PO TID PRN (Reason: muscle spasm) Qty: 14 0RF ibuprofen 400 mg tablet 400 mg PO Q8H Qty: 20 0RF apixaban [Eliquis] PO BID metoprolol succinate 200 mg capsule,sprinkle,ER 24hr 200 mg PO DAILY lisinopril 20 mg tablet 20 mg PO DAILY diltiazem HCl 180 mg capsule,extended release 24 hr 180 mg PO DAILY Referrals: Savanna Garzon RN [Primary Care Provider] - Stand Alone Forms: Patient Portal/API
== END 2024-03-16 13:17 | disposition home or self-care (01) ==
PROVIDERS: Emergency Provider Emergency Medicine; PCP Nurse Practitioner Family
DX: S09.90XA Unspecified injury of head, initial encounter (principal); W22.09XA Striking against other stationary object, initial encounter; Z79.01 Long term (current) use of anticoagulants
CPT/HCPCS: 70450; 99281; 99283

== ENCOUNTER → 2024-04-10 14:17 | Outpatient (CLI) | payer OTHER, MEDICAID, SELFPAY ==
[2024-04-10 15:49] LABS: Alanine Aminotransferase 29 IU/L (<50); Albumin Globulin Ratio 1.7 (1.0-2.8); Alkaline Phosphatase 106 U/L (38-126); Aspartate Aminotransferase 29 IU/L (17-59); BUN Creatinine Ratio 14.4 (6-22); Bilirubin Total 0.4 mg/dL (0.2-1.3); Blood Urea Nitrogen 20 mg/dL (9-20); Calcium 8.6 mg/dL (8.4-10.2); Carbon Dioxide 27 mmol/L (22-32); Chloride 107 mmol/L (98-107); Estimated Glomerular Filt Rate 59 mL/min (>60); Globulin 2.4 g/dL (1.7-4.1); Glucose 100 mg/dL (70-100); HEMOLYSIS < 15 (0-50); Potassium 4.5 mmol/L (3.4-5.1); Sodium 138 mmol/L (137-145); Total Protein 6.4 g/dL (6.3-8.2)
[2024-04-10 16:06] LABS: Free T3, Triiodothyronine Free 3.23 pg/mL (2.77-5.27); Free T4, Direct Thyroxine 1.45 ng/dL (0.78-2.19)
[2024-04-10 16:18] LABS: Prostate Specific Antigen 0.667 ng/mL (0.10-4.00)
[2024-04-10 16:19] LABS: Thyroid Stimulating Hormone 0.542 uIU/mL (0.47-4.68)
[2024-04-15 07:21] LABS: Thyroid Peroxidase Antibodies 13 IU/mL (0-34)
[2024-04-17 12:16] LABS: Percent Free Testosterone 1.87 % (1.50-4.20); Testosterone Free 8.83 ng/dL (5.00-21.00)
[2024-04-18 05:15] LABS: Dehydroepiandrosterone (DHEA) 147 ng/dL (21-402)
== END ==
PROVIDERS: PCP Nurse Practitioner Family; Referring Provider Nurse Practitioner Family; Visit Provider Nurse Practitioner Family
DX: R86.1 Abnormal level of hormones in specimens from male genital organs (principal)
CPT/HCPCS: 36415; 80053; 82627; 84153; 84402; 84403; 84439; 84443; 84481; 86376

== ENCOUNTER → 2024-05-12 15:33 | Outpatient (CLI) | payer OTHER, MEDICAID, SELFPAY ==
[2024-05-12 18:11] LABS: Alanine Aminotransferase 37 IU/L (<50); Albumin 3.9 g/dL (3.5-5.0); Albumin Globulin Ratio 1.4 (1.0-2.8); Alkaline Phosphatase 82 U/L (38-126); Aspartate Aminotransferase 37 IU/L (17-59); Bilirubin Total 0.5 mg/dL (0.2-1.3); Blood Urea Nitrogen 19 mg/dL (9-20); Calcium 8.5 mg/dL (8.4-10.2); Carbon Dioxide 27 mmol/L (22-32); Chloride 109 mmol/L (98-107); Estimated Glomerular Filt Rate > 60 mL/min (>60); Globulin 2.8 g/dL (1.7-4.1); Glucose 92 mg/dL (70-100); HEMOLYSIS < 15 (0-50); Potassium 4.7 mmol/L (3.4-5.1); Sodium 139 mmol/L (137-145); Total Protein 6.7 g/dL (6.3-8.2)
== END ==
LOC: LAB 15:35
PROVIDERS: PCP Nurse Practitioner Family; Referring Provider Nurse Practitioner Family; Visit Provider Nurse Practitioner Family
DX: R86.1 Abnormal level of hormones in specimens from male genital organs (principal)
CPT/HCPCS: 36415; 80053; 82627; 84153; 84154; 84402; 84403

== ENCOUNTER 2024-06-06 15:08 | Emergency (ER) | payer OTHER, MEDICAID, SELFPAY ==
[2024-06-06 15:15] VITALS: BP 138/80; PULSE 99; O2SAT 97
[2024-06-06 15:18] VITALS: BP 138/80; PULSE 98; RESP 18; TEMP 36.9; O2SAT 97; BMI 31.9
[2024-06-06 15:30] VITALS: PULSE 93; O2SAT 95
--- NOTE | 2024-06-06 15:56 | DI.RAD.S_ITS ---
PROCEDURE: XR FOOT RT MIN 3V INDICATIONS: injury pain TECHNIQUE: 3 views of the foot were acquired. COMPARISON: , CR, XR FOOT RT 2V, 08/16/2023, 16:35. , CR, XR FOOT LT MIN 3V, 04/03/2019, 13:14. FINDINGS: Bones: No fractures or dislocations. Mild diffuse interphalangeal and 1st MTP joint degeneration. Mild plantar calcaneal enthesophyte. No suspicious bony lesions. Soft tissues: No tibiotalar joint effusion. Achilles tendon appears normal. IMPRESSION: No acute bony abnormality. Dictated by: Leonardo Keane M.D. on 06/06/2024 at 16:19 Approved by: Leonardo Keane M.D. on 06/06/2024 at 16:19
--- NOTE | 2024-06-06 15:56 | DI.CT.S_ITS ---
PROCEDURE: CT HEAD/BRAIN WO CON INDICATIONS: hit head on eliquis TECHNIQUE: Noncontrast 4.5 mm thick angled axial sections acquired from the foramen magnum to the vertex, with coronal and sagittal reformats. For radiation dose reduction, the following was used: automated exposure control, adjustment of mA and/or kV according to patient size. COMPARISON: [facility], CT, CT HEAD/BRAIN WO CON, 03/16/2024, 12:00. FINDINGS: Image quality: Diagnostic. CSF spaces: Basal cisterns are patent. No extra-axial fluid collections. Ventricles are normal in size and shape. Brain: No midline shift. No intracranial masses or hemorrhage. Serra-white matter interface is normal. Skull and face: Calvarium and visualized facial bones are intact, without suspicious lesions. Sinuses: Visualized sinuses and mastoids are clear. IMPRESSION: No acute intracranial pathology. Dictated by: Leonardo Keane M.D. on 06/06/2024 at 16:20 Approved by: Leonardo Keane M.D. on 06/06/2024 at 16:22
[2024-06-06 16:00] VITALS: PULSE 82; O2SAT 96
--- NOTE | 2024-06-06 16:11 | ED.HEATRA ---
HPI - Head Injury General Chief complaint: Head Injury Stated complaint: hit head, taking blood thinners Time Seen by Provider: 06/06/24 15:32 Source: patient Mode of arrival: Ambulatory History of Present Illness HPI Narrative: Patient is a 58-year-old male history of atrial fibrillation on Eliquis presenting today with head injury. He reports he stood up hit his head a garage no loss of consciousness nausea or vomiting. Injury happened about 3 hours ago. He has no evidence of trauma. He is complaining of some right foot pain as well he thinks maybe he twisted it or hurt during the event as well. No other symptoms. He did not fall. Related Data Home Medications Medication Instructions Recorded Confirmed [fermented codliver o] ##0 02/13/18 12/07/22 [natural calm] ##0 02/13/18 12/07/22 cholecalciferol (vitamin D3) 125 5,000 unit PO ##0 02/13/18 12/07/22 mcg (5,000 unit) capsule cyanocobalamin (vitamin B-12) 1,000 mcg IM X1 ##0 02/13/18 12/07/22 1,000 mcg/mL injection solution apixaban [Eliquis] PO BID 07/21/21 12/07/22 diltiazem HCl 180 mg capsule,24 180 mg PO DAILY 07/21/21 12/07/22 hr,extended release lisinopril 20 mg tablet 20 mg PO DAILY 07/21/21 12/07/22 metoprolol succinate 200 mg 200 mg PO DAILY 07/21/21 12/07/22 capsule sprinkle, ext. release 24 hr Previous Rx's Medication Instructions Recorded chlorhexidine gluconate 0.12 % 15 ml buccal BID #118 mL 02/07/21 mouthwash cyclobenzaprine 10 mg tablet 10 mg PO TID PRN muscle spasm #14 07/13/22 tabs ibuprofen 400 mg tablet 400 mg PO Q8H #20 tabs 07/13/22 albuterol sulfate 90 mcg/actuation 2 puff inhalation Q4-6H PRN 12/07/22 aerosol inhaler shortness of breath or wheezing #8.5 grams azithromycin 250 mg tablet See Rx Instructions PO .COMPLEX #6 12/07/22 tabs inhalational spacing device #1 ea 12/07/22 (BreatheRite MDI Spacer) Allergies Allergy/AdvReac Type Severity Reaction Status Date / Time Penicillins [PENICILLINS] Allergy Unknown Verified 03/16/24 11:22 Patient History Medical History New onset a-fib Dental infection No significant medical problems Social History Smoking Status: Current some day smoker Smoking Status: Current some day smoker tobacco type: cigarettes alcohol intake frequency: holidays/special occasions only Substance Use Type: marijuana Exam Initial Vital Signs Initial Vital Signs: Vital Signs Pulse Rate 99 H 06/06/24 15:15 Blood Pressure 138/80 06/06/24 15:15 Pulse Oximetry 97 06/06/24 15:15 GENERAL: Alert well-appearing 58-year-old HEENT: Head atraumatic,EOMI, pupils reactive, face symmetric, moist mucous membranes CARDIOVASCULAR: Regular rate and rhythm without murmurs, rubs or gallops. RESPIRATORY: Breath sounds equal bilaterally, no wheezes rales or rhonchi. EXTREMITIES: Normal range of motion, no clubbing or edema. Neurovascularly intact NEUROLOGICAL: Alert and oriented x4.Normal gait and speech. Cranial nerves II through XII grossly intact. SKIN: Warm, dry, no laceration, no petechiae, no rashes or lesions. Course Orders Ordered: ED Orders 06/06/24 15:56 CT head/brain wo con Stat XR foot RT min 3V Stat Vital Signs Vital signs: Vital Signs - 8 hr 06/06/24 15:15 06/06/24 15:15 06/06/24 15:18 Temperature 98.4 F Pulse Rate 99 H 98 H Respiratory Rate 18 Blood Pressure 138/80 138/80 Pulse Oximetry 97 97 Oxygen Delivery Method Room Air 06/06/24 15:30 06/06/24 16:00 06/06/24 16:30 Temperature Pulse Rate 93 H 82 79 Respiratory Rate Blood Pressure Pulse Oximetry 95 96 97 Oxygen Delivery Method 06/06/24 16:33 06/06/24 16:33 Temperature 98.8 F Pulse Rate 73 Respiratory Rate Blood Pressure 120/75 Pulse Oximetry 96 Oxygen Delivery Method MDM - Head Injury Imaging Data CT scan - head: Radiologist's Impression: PROCEDURE: CT HEAD/BRAIN WO CON INDICATIONS: hit head on eliquis TECHNIQUE: Noncontrast 4.5 mm thick angled axial sections acquired from the foramen magnum to the vertex, with coronal and sagittal reformats. For radiation dose reduction, the following was used: automated exposure control, adjustment of mA and/or kV according to patient size. COMPARISON: [facility], CT, CT HEAD/BRAIN WO CON, 03/16/2024, 12:00. FINDINGS: Image quality: Diagnostic. CSF spaces: Basal cisterns are patent. No extra-axial fluid collections. Ventricles are normal in size and shape. Brain: No midline shift. No intracranial masses or hemorrhage. Serra-white matter interface is normal. Skull and face: Calvarium and visualized facial bones are intact, without suspicious lesions. Sinuses: Visualized sinuses and mastoids are clear. IMPRESSION: No acute intracranial pathology. Dictated by: Leonardo Keane M.D. on 06/06/2024 at 16:20 Approved by: Leonardo Keane M.D. on 06/06/2024 at 16:22 Extremity x-ray #1: Radiologist's Impression: PROCEDURE: XR FOOT RT MIN 3V INDICATIONS: injury pain TECHNIQUE: 3 views of the foot were acquired. COMPARISON: [facility], CR, XR FOOT RT 2V, 08/16/2023, 16:35. [facility], CR, XR FOOT LT MIN 3V, 04/03/2019, 13:14. FINDINGS: Bones: No fractures or dislocations. Mild diffuse interphalangeal and 1st MTP joint degeneration. Mild plantar calcaneal enthesophyte. No suspicious bony lesions. Soft tissues: No tibiotalar joint effusion. Achilles tendon appears normal. IMPRESSION: No acute bony abnormality. Dictated by: Leonardo Keane M.D. on 06/06/2024 at 16:19 MDM Narrative Medical decision making narrative: Patient is a 58-year-old male who presents today with head injury while on Eliquis. No significant mechanism he stood up and hit his head without evidence of exterior trauma. Head CT and foot x-ray are both negative. At this time supportive care only Discharge Plan Departure Patient Disposition: Home Clinical Impression: Closed head injury Instructions: DI for Closed Head Injury Activity Restrictions/Additional Instructions: *You have been diagnosed with closed head injury, foot *What to do: At this time head CT and x-ray are negative *Continue to take medications as directed Tylenol as needed for pain *Follow up with your primary care provider in 2-3 days or call [phone] *Return to ER if you should have increasing headache nausea vomiting weakness or any new, worsening or concerning symptoms Prescriptions: No Action chlorhexidine gluconate 0.12 % mouthwash 15 ml buccal BID Qty: 118 0RF albuterol sulfate 90 mcg/actuation HFA aerosol inhaler 2 puff inhalation Q4-6H PRN (Reason: shortness of breath or wheezing) Qty: 8.5 0RF (DME) BreatheRite MDI Spacer Spacer See Rx Instructions .Route Qty: 1 0RF Rx Instructions: As directed azithromycin 250 mg tablet See Rx Instructions PO .COMPLEX Qty: 6 0RF Rx Instructions: For 250 mg dose pack: take 500 mg today (day 1), then 250 mg for 4 days (days 2-5) PO cyanocobalamin (vitamin B-12) 1,000 MCG/1 ML solution 1,000 mcg IM X1 Qty: 0 cholecalciferol (vitamin D3) 5,000 UNIT capsule 5,000 unit PO Qty: 0 [fermented codliver o] Qty: 0 [natural calm] Qty: 0 cyclobenzaprine 10 mg tablet 10 mg PO TID PRN (Reason: muscle spasm) Qty: 14 0RF ibuprofen 400 mg tablet 400 mg PO Q8H Qty: 20 0RF apixaban [Eliquis] PO BID metoprolol succinate 200 mg capsule,sprinkle,ER 24hr 200 mg PO DAILY lisinopril 20 mg tablet 20 mg PO DAILY diltiazem HCl 180 mg capsule,extended release 24 hr 180 mg PO DAILY Referrals: Savanna Garzon ARNP, RN [Primary Care Provider] - Stand Alone Forms: Patient Portal/API
[2024-06-06 16:30] VITALS: PULSE 79; O2SAT 97
[2024-06-06 16:33] VITALS: BP 120/75; PULSE 73; TEMP 37.1; O2SAT 96
== END 2024-06-06 16:43 | disposition home or self-care (01) ==
PROVIDERS: Emergency Provider Emergency Medicine; PCP Nurse Practitioner Family
DX: S09.90XA Unspecified injury of head, initial encounter (principal); M79.671 Pain in right foot; Z79.01 Long term (current) use of anticoagulants; X50.1XXA Overexertion from prolonged static or awkward postures, initial encounter; W22.8XXA Striking against or struck by other objects, initial encounter
CPT/HCPCS: 70450; 73630; 99281; 99284

== ENCOUNTER → 2024-07-02 09:02 | Outpatient (CLI) | payer OTHER, MEDICAID, SELFPAY ==
[2024-07-02 10:12] LABS: Add Manual Diff / Slide Review NO; Basophils Absolute Auto 100 /uL (0-100); Basophils Percent Auto 1.1 % (0-2); Eosinophils Absolute Auto 200 /uL (0-450); Eosinophils Percent Auto 4.4 % (2-4); Hematocrit 39.9 % (41-53); Hemoglobin 13.5 g/dL (13.5-17.5); Lymphocytes Absolute Auto 1600 /uL (1100-4500); Lymphocytes Percent Auto 32.3 % (25-40); Mean Corpuscular HGB Conc 33.8 % (30-36); Mean Corpuscular Volume 97.7 fL (80-100); Monocytes Absolute Auto 500 /uL (0-900); Monocytes Percent Auto 9.3 % (3-14); Neutrophils Absolute Auto 2600 /uL (1500-7000); Neutrophils Percent Auto 52.9 % (50-75); Platelet Count 288 X10^3/uL (150-400); Red Blood Cell Count 4.09 X10^6/uL (4.5-5.9); Red Cell Distribution Width 13.5 % (11.6-14.8); White Blood Cell Count 4.8 X10^3/uL (4.5-11.0)
[2024-07-02 10:44] LABS: Alanine Aminotransferase 32 IU/L (<50); Albumin 4.1 g/dL (3.5-5.0); Albumin Globulin Ratio 1.7 (1.0-2.8); Alkaline Phosphatase 67 U/L (38-126); Aspartate Aminotransferase 28 IU/L (17-59); BUN Creatinine Ratio 18.3 (6-22); Bilirubin Total 0.7 mg/dL (0.2-1.3); Blood Urea Nitrogen 22 mg/dL (9-20); Calcium 9.2 mg/dL (8.4-10.2); Carbon Dioxide 25 mmol/L (22-32); Chloride 104 mmol/L (98-107); Estimated Glomerular Filt Rate > 60 mL/min (>60); Globulin 2.4 g/dL (1.7-4.1); Glucose 112 mg/dL (70-100); HEMOLYSIS < 15 (0-50); Potassium 4.9 mmol/L (3.4-5.1); Sodium 137 mmol/L (137-145); Total Protein 6.5 g/dL (6.3-8.2)
== END ==
PROVIDERS: PCP Nurse Practitioner Family; Referring Provider Nurse Practitioner Family; Visit Provider Nurse Practitioner Family
DX: R89.1 Abnormal level of hormones in specimens from other organs, systems and tissues (principal); E78.5 Hyperlipidemia, unspecified
CPT/HCPCS: 36415; 80053; 80061; 82627; 84402; 84403; 85025

== ENCOUNTER → 2024-07-10 08:50 | Outpatient (CLI) | payer OTHER, MEDICAID, SELFPAY ==
--- NOTE | 2024-07-10 08:51 | DI.ECHO.S_ITS ---
[facility] : : [id number] : : [id number] : : Phone: [phone] Echocardiogram Report + + :Name: ANALISA CARRANZA Study Date: 07/10/2024 Height: 68 in : :[facility] ReadingLocation: Weight: 205 lb : : Gender: Male BSA: 2.1 m2 : :: 1965 Age: 58 yrs BP: 146/106 mmHg: :Reason For Study: HEART FAILURE : :Ordering Physician: POOJA, : :CARMEL Ramirez Performed By: Azul Mayer : :Referring: CARMEL VERDIN : + + Interpretation Summary The ejection fraction is estimated to be 50-55%. Diastolic function could not be accurately assessed due to contradictory data. The left atrium is mildly dilated. The right ventricle is mildly dilated. The right ventricular systolic function is normal. There is mild tricuspid regurgitation. The right ventricular systolic pressure is estimated to be at least 27 mmHg based on an estimated right atrial pressure of 3 mm Hg. Compared to the prior study dated 09/09/2021, the EF has increased. Procedure: A two-dimensional transthoracic echocardiogram with color flow and Doppler was performed. The study quality was technically adequate. Comparison is made with the echocardiogram of 09/09/2021. The patient was in sinus rhythm with heart rates between 64-66 bpm during the exam. Left Ventricle: The left ventricle is normal in size and wall thickness. The ejection fraction is estimated to be 50-55%. Diastolic function could not be accurately assessed due to contradictory data. Right Ventricle: The right ventricle is mildly dilated. The right ventricular systolic function is normal. Atria: The left atrium is mildly dilated. The right atrium is normal in size. There is no Doppler evidence for an interatrial shunt. Mitral Valve: The mitral valve is normal in structure and function. There is trace mitral regurgitation. Aortic Valve: The aortic valve is trileaflet. The aortic valve opens well. There is no aortic valve stenosis. No aortic regurgitation is present. Tricuspid Valve: The tricuspid valve is normal in structure and function. There is mild tricuspid regurgitation. The right ventricular systolic pressure is estimated to be at least 27 mmHg based on an estimated right atrial pressure of 3 mm Hg. Pulmonic Valve: The pulmonic valve leaflets are thin and pliable; valve motion is normal. There is no pulmonic valvular regurgitation. Great Vessels: The aortic root is normal size. The dimensions of the ascending aorta are normal. The IVC is of normal diameter and collapses greater than 50% with a sniff. This suggests a low right atrial pressure of 3 mm Hg. Pericardium/ Pleura There is no pericardial effusion. There is no pleural effusion. MMode/2D Measurements & Calculations LVIDd: 4.3 cm LVOT diam: 2.0 cm LVIDs: 3.2 cm Ao root diam: 3.5 cm FS: 25.1 % asc Aorta Diam: 3.5 cm EPSS: 0.47 cm Ao Arch Diam (Prox Trans): 3.4 cm IVSd: 0.95 cm LVPWd: 0.88 cm LV chavez. diameter/BSA (cm/m^2): 2.1 LV sys. diameter/BSA (cm/m^2): 1.5 LA A2 area: 24.9 cm2 RA long axis: 5.6 cm LA A4 area: 19.2 cm2 RA area: 17.1 cm2 LA length (vol): 5.3 cm RA vol: 44.4 ml LA vol: 77.2 ml RA : 21.5 ml/m2 LA vol index: 37.4 ml/m2 IVC diam: 1.4 cm RVD1 (basal): 4.2 cm TAPSE: 2.3 cm Doppler Measurements & Calculations Ao V2 max: 122.0 cm/sec LVOT Max Albin: 108.0 cm/sec Ao V2 mean: 89.7 cm/sec LV V1 max P.7 mmHg Ao max P.0 mmHg LV V1 VTI: 22.1 cm Ao mean P.5 mmHg KIRSTIN(I,D): 2.9 cm2 Ao V2 VTI: 24.9 cm KIRSTIN(V,D): 2.9 cm2 sev ratio: 0.89 KIRSTIN indexed to BSA (cm^2/m^2): 1.4 MV E max albin: 96.0 cm/sec TR max albin: 242.3 cm/sec MV A max albin: 98.9 cm/sec TR max P.5 mmHg MV E/A: 0.97 PA V2 max: 104.0 cm/sec Med Peak E' Albin: 8.5 cm/sec PA V2 mean: 78.4 cm/sec E/E' med: 11.3 PA mean P.6 mmHg Lat Peak E' Albin: 8.8 cm/sec PA pr(Accel): 15.6 mmHg E/E' lat: 10.9 E/e' average: 11.1 MV dec time: 0.22 sec SV(LVOT): 71.6 ml Reading Physician:04:00 PM
== END ==
PROVIDERS: PCP Nurse Practitioner Family; Referring Provider Internal Medicine Cardiovascular Disease; Visit Provider Internal Medicine Cardiovascular Disease
DX: I07.1 Rheumatic tricuspid insufficiency (principal); I50.22 Chronic systolic (congestive) heart failure
CPT/HCPCS: 93306

== ENCOUNTER 2024-07-17 22:13 | Emergency (ER) | payer OTHER, MEDICAID, SELFPAY ==
[2024-07-17 22:20] VITALS: BP 139/85; PULSE 77; RESP 16; TEMP 36.7; O2SAT 100; BMI 31.1
--- NOTE | 2024-07-17 22:23 | DI.RAD.S_ITS ---
PROCEDURE: XR ELBOW LT MIN 3V INDICATIONS: pain TECHNIQUE: 3 views of the elbow were acquired. COMPARISON: None. FINDINGS: Bones: No fractures or dislocations. No suspicious bony lesions. Mild degenerative changes. Soft tissues: No elbow joint effusion. No suspicious soft tissue calcifications. IMPRESSION: No acute bony abnormality or significant joint effusion. Dictated by: Larry Yeung M.D. on 07/17/2024 at 22:45 Approved by: Larry Yeung M.D. on 07/17/2024 at 22:47
== END 2024-07-18 00:27 | disposition left against medical advice (07) ==
PROVIDERS: Emergency Provider Emergency Medicine; PCP Nurse Practitioner Family
DX: M25.522 Pain in left elbow (principal); X50.0XXA Overexertion from strenuous movement or load, initial encounter
CPT/HCPCS: 73080; 99281

== ENCOUNTER 2024-08-01 14:53 | Emergency (ER) | payer OTHER, MEDICAID, SELFPAY ==
[2024-08-01 14:54] VITALS: BP 142/90; PULSE 88; RESP 14; TEMP 36.9; O2SAT 99; BMI 29.3
[2024-08-01 14:56] VITALS: O2SAT 94
[2024-08-01 14:57] VITALS: BP 142/90; PULSE 87; O2SAT 98
--- NOTE | 2024-08-01 14:59 | DI.CT.S_ITS ---
PROCEDURE: CT CERVICAL SPINE WO CON INDICATIONS: fall, hit head on thinners TECHNIQUE: Noncontrast 3 mm thick sections acquired from the skull base to the T4 level. Sagittal and coronal reformats were then constructed. For radiation dose reduction, the following was used: automated exposure control, adjustment of mA and/or kV according to patient size. COMPARISON: [facility], CT, CT CERVICAL SPINE WO CON, 07/01/2022, 15:31. [facility], CT, CT HEAD/BRAIN WO CON, 08/01/2024, 15:49. [facility], CT, CT CERVICAL SPINE WO CON, 10/08/2023, 17:16. FINDINGS: Image quality: There is streak artifact seen through the level of the shoulders. Bones: No fractures or dislocations. Visualized superior ribs are intact. There is multiple levels of significant cervical spine degenerative change can be seen. A few levels of bridging anterior osteophytes can be seen. Soft tissues: Prevertebral soft tissues are normal in thickness. No paravertebral hematomas. No apical pneumothoraces. Atherosclerotic calcification is noted. IMPRESSION: No displaced fracture or traumatic subluxation. Underlying degenerative changes are seen. Dictated by: John Avila M.D. on 08/01/2024 at 15:01 Approved by: John Avila M.D. on 08/01/2024 at 15:02
--- NOTE | 2024-08-01 14:59 | DI.CT.S_ITS ---
PROCEDURE: CT HEAD/BRAIN WO CON INDICATIONS: fall, hit head on thinners TECHNIQUE: Noncontrast 4.5 mm thick angled axial sections acquired from the foramen magnum to the vertex, with coronal and sagittal reformats. For radiation dose reduction, the following was used: automated exposure control, adjustment of mA and/or kV according to patient size. COMPARISON: [facility], CT, CT HEAD/BRAIN WO CON, 10/08/2023, 17:16. [facility], CT, CT HEAD/BRAIN WO CON, 03/16/2024, 12:00. [facility], CT, CT CERVICAL SPINE WO CON, 08/01/2024, 15:49. [facility], CT, CT HEAD/BRAIN WO CON, 06/06/2024, 16:03. FINDINGS: Image quality: Diagnostic. CSF spaces: Basal cisterns are patent. No extra-axial fluid collections. Ventricles are normal in size and shape. Brain: No midline shift. No intracranial masses or hemorrhage. Serra-white matter interface is normal. Skull and face: Calvarium and visualized facial bones are intact, without suspicious lesions. Sinuses: Visualized sinuses and mastoids are clear. IMPRESSION: No acute intracranial hemorrhage is seen. No acute intracranial pathology. Dictated by: John Avila M.D. on 08/01/2024 at 15:02 Approved by: John Avila M.D. on 08/01/2024 at 15:03
--- NOTE | 2024-08-01 16:12 | ED_ITS ---
HPI - Head Injury General Chief complaint: Trauma Stated complaint: Fall, hit head on blood thinners Time Seen by Provider: 08/01/24 16:11 Source: patient Mode of arrival: Ambulatory History of Present Illness HPI Narrative: Patient 58-year-old male atrial fibrillation on Eliquis presents today after head injury. He reports he was in his garage moving stuff he tripped over his feet his head. No loss consciousness no laceration no numbness tingling weakness nausea or vomiting. This has happened to him before. He denies any sort of dizziness chest pain palpitations. Related Data Home Medications Medication Instructions Recorded Confirmed [fermented codliver o] ##0 02/13/18 12/07/22 [natural calm] ##0 02/13/18 12/07/22 cholecalciferol (vitamin D3) 125 5,000 unit PO ##0 02/13/18 12/07/22 mcg (5,000 unit) capsule cyanocobalamin (vitamin B-12) 1,000 mcg IM X1 ##0 02/13/18 12/07/22 1,000 mcg/mL injection solution apixaban [Eliquis] PO BID 07/21/21 12/07/22 diltiazem HCl 180 mg capsule,24 180 mg PO DAILY 07/21/21 12/07/22 hr,extended release lisinopril 20 mg tablet 20 mg PO DAILY 07/21/21 12/07/22 metoprolol succinate 200 mg 200 mg PO DAILY 07/21/21 12/07/22 capsule sprinkle, ext. release 24 hr Previous Rx's Medication Instructions Recorded chlorhexidine gluconate 0.12 % 15 ml buccal BID #118 mL 02/07/21 mouthwash cyclobenzaprine 10 mg tablet 10 mg PO TID PRN muscle spasm #14 07/13/22 tabs ibuprofen 400 mg tablet 400 mg PO Q8H #20 tabs 07/13/22 albuterol sulfate 90 mcg/actuation 2 puff inhalation Q4-6H PRN 12/07/22 aerosol inhaler shortness of breath or wheezing #8.5 grams azithromycin 250 mg tablet See Rx Instructions PO .COMPLEX #6 12/07/22 tabs inhalational spacing device #1 ea 12/07/22 (BreatheRite MDI Spacer) Allergies Allergy/AdvReac Type Severity Reaction Status Date / Time Penicillins [PENICILLINS] Allergy Unknown Verified 08/01/24 14:58 Patient History Medical History New onset a-fib Dental infection No significant medical problems Social History Smoking Status: Current some day smoker Smoking Status: Current some day smoker tobacco type: cigarettes alcohol intake frequency: holidays/special occasions only Substance Use Type: marijuana Exam Initial Vital Signs Initial Vital Signs: Vital Signs Temperature 98.5 F 08/01/24 14:54 Pulse Rate 88 08/01/24 14:54 Respiratory Rate 14 08/01/24 14:54 Blood Pressure 142/90 H 08/01/24 14:54 Pulse Oximetry 99 08/01/24 14:54 Oxygen Delivery Method Room Air 08/01/24 14:54 GENERAL: Well-appearing, well-nourished and in no acute distress. HEAD: No evidence of trauma no laceration no abrasion NECK: No vertebral tenderness full range of motion CARDIOVASCULAR: peripheral pulses in tact, cap refill <2 sec RESPIRATORY: No respiratory distress, speaks in full sentences without difficulty EXTREMITIES: Normal range of motion, no clubbing or edema. Neurovascularly intact NEUROLOGICAL: Cranial nerves II through XII grossly intact. Normal gait and speech. Sample Selector strength equal SKIN: Warm, dry, no petechiae, no rashes or lesions. Course Orders Ordered: ED Orders 08/01/24 14:59 CT cervical spine wo con Stat CT head/brain wo con Stat Vital Signs Vital signs: Vital Signs - 8 hr 08/01/24 14:54 Temperature 98.5 F Pulse Rate 88 Respiratory Rate 14 Blood Pressure 142/90 H Pulse Oximetry 99 Oxygen Delivery Method Room Air MDM - Head Injury Imaging Data CT scan - head: Radiologist's Impression: PROCEDURE: CT HEAD/BRAIN WO CON INDICATIONS: fall, hit head on thinners TECHNIQUE: Noncontrast 4.5 mm thick angled axial sections acquired from the foramen magnum to the vertex, with coronal and sagittal reformats. For radiation dose reduction, the following was used: automated exposure control, adjustment of mA and/or kV according to patient size. COMPARISON: [facility], CT, CT HEAD/BRAIN WO CON, 10/08/2023, 17:16. [facility], CT, CT HEAD/BRAIN WO CON, 03/16/2024, 12:00. [facility], CT, CT CERVICAL SPINE WO CON, 08/01/2024, 15:49. [facility], CT, CT HEAD/BRAIN WO CON, 06/06/2024, 16:03. FINDINGS: Image quality: Diagnostic. CSF spaces: Basal cisterns are patent. No extra-axial fluid collections. Ventricles are normal in size and shape. Brain: No midline shift. No intracranial masses or hemorrhage. Serra-white matter interface is normal. Skull and face: Calvarium and visualized facial bones are intact, without suspicious lesions. Sinuses: Visualized sinuses and mastoids are clear. IMPRESSION: No acute intracranial hemorrhage is seen. No acute intracranial pathology. Dictated by: John Avila M.D. on 08/01/2024 at 15:02 CT - cervical spine: Radiologist's Impression: PROCEDURE: CT CERVICAL SPINE WO CON INDICATIONS: fall, hit head on thinners TECHNIQUE: Noncontrast 3 mm thick sections acquired from the skull base to the T4 level. Sagittal and coronal reformats were then constructed. For radiation dose reduction, the following was used: automated exposure control, adjustment of mA and/or kV according to patient size. COMPARISON: [facility], CT, CT CERVICAL SPINE WO CON, 07/01/2022, 15:31. [facility], CT, CT HEAD/BRAIN WO CON, 08/01/2024, 15:49. [facility], CT, CT CERVICAL SPINE WO CON, 10/08/2023, 17:16. FINDINGS: Image quality: There is streak artifact seen through the level of the shoulders. Bones: No fractures or dislocations. Visualized superior ribs are intact. There is multiple levels of significant cervical spine degenerative change can be seen. A few levels of bridging anterior osteophytes can be seen. Soft tissues: Prevertebral soft tissues are normal in thickness. No paravertebral hematomas. No apical pneumothoraces. Atherosclerotic calcification is noted. IMPRESSION: No displaced fracture or traumatic subluxation. Underlying degenerative changes are seen. Dictated by: John Avila M.D. on 08/01/2024 at 15:01 [facility] Narrative Medical decision making narrative: 58-year-old male on Eliquis secondary to atrial fibrillation presents with head injury. He had a mechanical trip and hit his head. There is no evidence of trauma or laceration. He had no loss of consciousness no nausea vomiting or signs or symptoms concerning for concussion. He he overall appears well nontoxic. At this time no need for blood work Discharge Plan Departure Patient Disposition: Home Clinical Impression: Closed head injury Instructions: Closed Head Injury Activity Restrictions/Additional Instructions: *You have been diagnosed with closed head injury *What to do: At this time scans are negative. Please be careful in your garage *Continue to take medications as directed *Follow up with your primary care provider in 2-3 days or call [phone] *Return to ER if you should have increased headache nausea vomiting numbness tingling weakness or any new, worsening or concerning symptoms Prescriptions: No Action chlorhexidine gluconate 0.12 % mouthwash 15 ml buccal BID Qty: 118 0RF albuterol sulfate 90 mcg/actuation HFA aerosol inhaler 2 puff inhalation Q4-6H PRN (Reason: shortness of breath or wheezing) Qty: 8.5 0RF (DME) BreatheRite MDI Spacer Spacer See Rx Instructions .Route Qty: 1 0RF Rx Instructions: As directed azithromycin 250 mg tablet See Rx Instructions PO .COMPLEX Qty: 6 0RF Rx Instructions: For 250 mg dose pack: take 500 mg today (day 1), then 250 mg for 4 days (days 2-5) PO cyanocobalamin (vitamin B-12) 1,000 MCG/1 ML solution 1,000 mcg IM X1 Qty: 0 cholecalciferol (vitamin D3) 5,000 UNIT capsule 5,000 unit PO Qty: 0 [fermented codliver o] Qty: 0 [natural calm] Qty: 0 cyclobenzaprine 10 mg tablet 10 mg PO TID PRN (Reason: muscle spasm) Qty: 14 0RF ibuprofen 400 mg tablet 400 mg PO Q8H Qty: 20 0RF apixaban [Eliquis] PO BID metoprolol succinate 200 mg capsule,sprinkle,ER 24hr 200 mg PO DAILY lisinopril 20 mg tablet 20 mg PO DAILY diltiazem HCl 180 mg capsule,extended release 24 hr 180 mg PO DAILY Referrals: Savanna Garzon ARNP, RN [Primary Care Provider] - Stand Alone Forms: Patient Portal/API
[2024-08-01 16:21] VITALS: BP 138/80; PULSE 74; O2SAT 99
[2024-08-01 16:25] VITALS: BP 138/80; PULSE 73; RESP 20; O2SAT 98
== END 2024-08-01 16:26 | disposition home or self-care (01) ==
PROVIDERS: Emergency Provider Emergency Medicine; PCP Nurse Practitioner Family
DX: S09.90XA Unspecified injury of head, initial encounter (principal); W01.0XXA Fall on same level from slipping, tripping and stumbling without subsequent striking against object, initial encounter; I48.91 Unspecified atrial fibrillation; Z79.01 Long term (current) use of anticoagulants; Z79.899 Other long term (current) drug therapy
CPT/HCPCS: 70450; 72125; 99283; 99284

== ENCOUNTER → 2024-08-12 16:29 | Outpatient (CLI) | payer OTHER, MEDICAID, SELFPAY ==
--- NOTE | 2024-08-12 | DI.RAD.S_ITS ---
PROCEDURE: XR SHOULDER LT MIN 2V INDICATIONS: pain of left shoulder joint TECHNIQUE: Four views of the shoulder were acquired. COMPARISON: [facility], CR, XR SHOULDER LT MIN 2V, 10/08/2023, 16:34. FINDINGS: Bones: There are no osseous abnormalities. Acromioclavicular and glenohumeral joints: Mild glenohu acromioclavicular l degeneration appreciated. Glenohumeral joint unremarkable Soft tissues: No soft tissue swelling, calcification or mass. IMPRESSION: Mild acromioclavicular degeneration Dictated by: Moreno Casanova M.D. on 08/13/2024 at 9:26 Approved by: Moreno Casanova M.D. on 08/13/2024 at 9:27
== END ==
PROVIDERS: PCP Nurse Practitioner Family; Referring Provider Nurse Practitioner; Visit Provider Nurse Practitioner
DX: M25.512 Pain in left shoulder (principal); M19.012 Primary osteoarthritis, left shoulder
CPT/HCPCS: 73030

== ENCOUNTER 2024-08-26 00:09 | Emergency (ER) | payer OTHER, MEDICAID, SELFPAY ==
[2024-08-26 00:19] VITALS: BP 177/103; PULSE 92; RESP 16; TEMP 37; O2SAT 98; BMI 28.5
[2024-08-26 00:20] VITALS: PULSE 92; RESP 22; O2SAT 98
--- NOTE | 2024-08-26 00:25 | ED.GENADULT ---
HPI - General Adult General Chief complaint: Abdominal Pain Stated complaint: abd pain, vomited w/blood Time Seen by Provider: 08/26/24 00:12 Source: patient Mode of arrival: Ambulatory History of Present Illness HPI narrative: Patient is a 58-year-old male here for evaluation of multiple episodes of vomiting today. One episode was blood streaked. No recent travel. No recent antibiotics. He also states he has had some loose stools. Generalized abdominal discomfort around the time of the vomiting. No fevers. No chest pain shortness of breath. Has not tried anything for symptoms prior to arrival. Related Data Home Medications Medication Instructions Recorded Confirmed [fermented codliver o] ##0 02/13/18 12/07/22 [natural calm] ##0 02/13/18 12/07/22 cholecalciferol (vitamin D3) 125 5,000 unit PO ##0 02/13/18 12/07/22 mcg (5,000 unit) capsule cyanocobalamin (vitamin B-12) 1,000 mcg IM X1 ##0 02/13/18 12/07/22 1,000 mcg/mL injection solution apixaban [Eliquis] PO BID 07/21/21 12/07/22 diltiazem HCl 180 mg capsule,24 180 mg PO DAILY 07/21/21 12/07/22 hr,extended release lisinopril 20 mg tablet 20 mg PO DAILY 07/21/21 12/07/22 metoprolol succinate 200 mg 200 mg PO DAILY 07/21/21 12/07/22 capsule sprinkle, ext. release 24 hr Previous Rx's Medication Instructions Recorded chlorhexidine gluconate 0.12 % 15 ml buccal BID #118 mL 02/07/21 mouthwash cyclobenzaprine 10 mg tablet 10 mg PO TID PRN muscle spasm #14 07/13/22 tabs ibuprofen 400 mg tablet 400 mg PO Q8H #20 tabs 07/13/22 albuterol sulfate 90 mcg/actuation 2 puff inhalation Q4-6H PRN 12/07/22 aerosol inhaler shortness of breath or wheezing #8.5 grams azithromycin 250 mg tablet See Rx Instructions PO .COMPLEX #6 12/07/22 tabs inhalational spacing device #1 ea 12/07/22 (BreatheRite MDI Spacer) Allergies Allergy/AdvReac Type Severity Reaction Status Date / Time Penicillins [PENICILLINS] Allergy Unknown Verified 08/01/24 14:58 Review of Systems Review of Systems ROS Unobtainable: All systems reviewed & are unremarkable except as noted in HPI and below Patient History Medical History New onset a-fib Dental infection No significant medical problems Social History Smoking Status: Current some day smoker Smoking Status: Current some day smoker tobacco type: cigarettes alcohol intake frequency: holidays/special occasions only Substance Use Type: marijuana Exam Initial Vital Signs Initial Vital Signs: Vital Signs Temperature 98.6 F 08/26/24 00:19 Pulse Rate 92 H 08/26/24 00:19 Respiratory Rate 16 08/26/24 00:19 Blood Pressure 177/103 H 08/26/24 00:19 Pulse Oximetry 98 08/26/24 00:19 Oxygen Delivery Method Room Air 08/26/24 00:19 Const General: cooperative, comfortable and No ill appearing HENGA Head: normal to inspection and normocephalic Resp Effort & Inspection: normal respiratory effort Cardio Rate: regular rate GI Inspection: normal to inspection and non-distended Palpation: soft, No firm and No tender Skin General: no rashes or lesions noted Neuro General: patient alert, patient awake and moves all extremities Course Orders Ordered: ED Orders 08/26/24 00:15 Complete Blood Count AUTO DIFF Stat Comprehensive Metabolic Panel Stat Lipase Stat 08/26/24 00:25 CT abdomen pelvis w con Stat Discontinued Medications Ondansetron HCl (Ondansetron 4 Mg/2 Ml Inj) 4 mg IV NOW ONE Stop: 08/26/24 00:25 Last Admin: 08/26/24 00:35 Dose: 4 mg Documented By: Ondansetron HCl (Ondansetron 4 Mg Odt Prepack) 1 bottle MISC DIRECTED ONE Stop: 08/26/24 01:43 Last Admin: 08/26/24 01:48 Dose: 1 bottle Documented By: MARYANA Vital Signs Vital signs: Vital Signs - 8 hr 08/26/24 00:19 08/26/24 00:20 08/26/24 00:30 Temperature 98.6 F Pulse Rate 92 H 92 H 89 Respiratory Rate 16 22 20 Blood Pressure 177/103 H Pulse Oximetry 98 98 96 Oxygen Delivery Method Room Air 08/26/24 00:30 08/26/24 01:00 08/26/24 01:30 Temperature Pulse Rate 109 H 85 Respiratory Rate 25 H 17 Blood Pressure 157/92 H Pulse Oximetry 97 96 Oxygen Delivery Method Room Air Room Air 08/26/24 01:52 Temperature Pulse Rate Respiratory Rate Blood Pressure 170/98 H Pulse Oximetry Oxygen Delivery Method Medical Decision Making Lab Data Lab results reviewed: Yes I reviewed the patient's lab results. 08/26/24 00:15 08/26/24 00:15 Labs: Lab Results 08/26/24 Range/Units 00:15 WBC 9.8 (4.5-11.0) X10^3/uL RBC 4.41 L (4.5-5.9) X10^6/uL Hgb 14.7 (13.5-17.5) g/dL Hct 43.0 (41-53) % MCV 97.3 (80-100) fL MCH 33.4 (26-34) PG MCHC 34.3 (30-36) % RDW 13.2 (11.6-14.8) % Plt Count 283 (150-400) X10^3/uL Neut % (Auto) 83.4 H (50-75) % Lymph % (Auto) 10.9 L (25-40) % [place] % (Auto) 4.9 (3-14) % Eos % (Auto) 0.0 L (2-4) % Baso % (Auto) 0.8 (0-2) % Neut # (Auto) 8100 H (8091-8363) /uL Lymph # (Auto) 1100 (5338-6821) /uL [place] # (Auto) 500 (0-900) /uL Eos # (Auto) 0 (0-450) /uL Baso # (Auto) 100 (0-100) /uL Sodium 136 L (137-145) mmol/L Potassium 4.0 (3.4-5.1) mmol/L Chloride 95 L (98-107) mmol/L Carbon Dioxide 33 H (22-32) mmol/L BUN 26 H (9-20) mg/dL Creatinine 1.35 H (0.66-1.25) mg/dL Estimated GFR > 60 (>60) mL/min BUN/Creatinine Ratio 19.3 (6-22) Glucose 142 H (70-100) mg/dL Calcium 9.5 (8.4-10.2) mg/dL Total Bilirubin 1.1 (0.2-1.3) mg/dL AST 33 (17-59) IU/L ALT 34 (<50) IU/L Alkaline Phosphatase 86 (38-126) U/L Total Protein 7.7 (6.3-8.2) g/dL Albumin 4.5 (3.5-5.0) g/dL Globulin 3.2 (1.7-4.1) g/dL Albumin/Globulin Ratio 1.4 (1.0-2.8) Lipase 54 (23-300) U/L Imaging Data CT scan - abdomen/pelvis: Radiologist's Impression: PROCEDURE: CT ABDOMEN PELVIS W CON INDICATIONS: Lower abdominal pain TECHNIQUE: After the administration of intravenous contrast, axial sections acquired from the lung bases to the pubic symphysis. Coronal and sagittal reformats were performed. For radiation dose reduction, the following was used: automated exposure control, adjustment of mA and/or kV according to patient size. COMPARISON: None. FINDINGS: Image quality: Diagnostic. Lower Chest: No significant findings. ABDOMEN: Liver: No solid mass. Gallbladder: No radiopaque gallstones or wall thickening. Biliary ducts: No biliary dilation. Pancreas: No ductal dilation. Spleen: Size is within normal limits. Adrenal Glands: No adrenal nodules. Kidneys and Ureters: No hydronephrosis. No solid mass. No complex renal cystic lesion which requires follow up. Stomach and Bowel: Small hiatal hernia. Included distal esophageal wall appears thickened. Mild bowel wall thickening throughout the colon may be related to underdistention versus colitis. Normal appendix. Small bowel loops are unremarkable. Peritoneum: No abnormal intraperitoneal fluid. No free air. Ventral Wall: No significant ventral hernia. Abdominal Nodes: No retroperitoneal or mesenteric adenopathy by size criteria. Vessels: Aorta and inferior vena cava are normal in size. PELVIS: Pelvic Organs: Coarse calcifications are seen in the prostate. Bladder: Mild circumferential bladder wall thickening. Pelvic Nodes: No enlarged lymph nodes. Miscellaneous: Small fat containing right inguinal hernia. Bones: No aggressive osseous abnormality. Degenerative changes are seen in the hips and spine. Levoconvex curvature of the spine. IMPRESSION: 1. Mild bowel wall thickening throughout the colon may be related to underdistention versus a nonspecific colitis. 2. Small hiatal hernia. Suspected distal esophageal wall thickening that may indicate esophagitis. 3. Mild circumferential bladder wall thickening may be related to cystitis, chronic outlet obstruction, or underdistention. 4. Fat containing left inguinal hernia. MDM Narrative Medical decision making narrative: Benign exam. Labs unremarkable. CT scan shows colitis which does fit with his clinical presentation today no indication for antibiotics. Tolerating oral intake after medications here in the ER. Will discharge home with return precautions and nausea medicine. He expressed understanding and agreement with the plan. Discharge Plan Departure Patient Disposition: Home Clinical Impression: Nausea and vomiting, Colitis Instructions: Nausea and Vomiting-Adult, DI for Colitis Activity Restrictions/Additional Instructions: I do recommend a bland diet for the next couple days. Be sure that you were increasing your fluid intake. Use the nausea medication as needed. Return to the emergency department for new or worsening symptoms. Prescriptions: No Action chlorhexidine gluconate 0.12 % mouthwash 15 ml buccal BID Qty: 118 0RF albuterol sulfate 90 mcg/actuation HFA aerosol inhaler 2 puff inhalation Q4-6H PRN (Reason: shortness of breath or wheezing) Qty: 8.5 0RF (DME) BreatheRite MDI Spacer Spacer See Rx Instructions .Route Qty: 1 0RF Rx Instructions: As directed azithromycin 250 mg tablet See Rx Instructions PO .COMPLEX Qty: 6 0RF Rx Instructions: For 250 mg dose pack: take 500 mg today (day 1), then 250 mg for 4 days (days 2-5) PO cyanocobalamin (vitamin B-12) 1,000 MCG/1 ML solution 1,000 mcg IM X1 Qty: 0 cholecalciferol (vitamin D3) 5,000 UNIT capsule 5,000 unit PO Qty: 0 [fermented codliver o] Qty: 0 [natural calm] Qty: 0 cyclobenzaprine 10 mg tablet 10 mg PO TID PRN (Reason: muscle spasm) Qty: 14 0RF ibuprofen 400 mg tablet 400 mg PO Q8H Qty: 20 0RF apixaban [Eliquis] PO BID metoprolol succinate 200 mg capsule,sprinkle,ER 24hr 200 mg PO DAILY lisinopril 20 mg tablet 20 mg PO DAILY diltiazem HCl 180 mg capsule,extended release 24 hr 180 mg PO DAILY Referrals: Savanna Garzon ARNP, RN [Primary Care Provider] - Stand Alone Forms: Patient Portal/API
[2024-08-26 00:30] VITALS: BP 157/92; PULSE 89; RESP 20; O2SAT 96
[2024-08-26 00:35] LABS: Add Manual Diff / Slide Review NO; Basophils Absolute Auto 100 /uL (0-100); Basophils Percent Auto 0.8 % (0-2); Eosinophils Absolute Auto 0 /uL (0-450); Hemoglobin 14.7 g/dL (13.5-17.5); Lymphocytes Absolute Auto 1100 /uL (1100-4500); Lymphocytes Percent Auto 10.9 % (25-40); Mean Corpuscular HGB Conc 34.3 % (30-36); Mean Corpuscular Hemoglobin 33.4 PG (26-34); Mean Corpuscular Volume 97.3 fL (80-100); Monocytes Absolute Auto 500 /uL (0-900); Monocytes Percent Auto 4.9 % (3-14); Neutrophils Absolute Auto 8100 /uL (1500-7000); Neutrophils Percent Auto 83.4 % (50-75); Platelet Count 283 X10^3/uL (150-400); Red Blood Cell Count 4.41 X10^6/uL (4.5-5.9); Red Cell Distribution Width 13.2 % (11.6-14.8); White Blood Cell Count 9.8 X10^3/uL (4.5-11.0)
[2024-08-26] MEDS: ONDANSETRON 4 MG/2 ML INJ IV (00:35)
[2024-08-26 00:46] LABS: Alanine Aminotransferase 34 IU/L (<50); Albumin 4.5 g/dL (3.5-5.0); Albumin Globulin Ratio 1.4 (1.0-2.8); Alkaline Phosphatase 86 U/L (38-126); Aspartate Aminotransferase 33 IU/L (17-59); BUN Creatinine Ratio 19.3 (6-22); Bilirubin Total 1.1 mg/dL (0.2-1.3); Blood Urea Nitrogen 26 mg/dL (9-20); Calcium 9.5 mg/dL (8.4-10.2); Carbon Dioxide 33 mmol/L (22-32); Chloride 95 mmol/L (98-107); Estimated Glomerular Filt Rate > 60 mL/min (>60); Globulin 3.2 g/dL (1.7-4.1); Glucose 142 mg/dL (70-100); HEMOLYSIS < 15 (0-50); Lipase 54 U/L (23-300); Sodium 136 mmol/L (137-145); Total Protein 7.7 g/dL (6.3-8.2)
[2024-08-26 01:00] VITALS: PULSE 109; RESP 25; O2SAT 97
[2024-08-26 01:30] VITALS: PULSE 85; RESP 17; O2SAT 96
[2024-08-26] MEDS: ONDANSETRON 4 MG ODT PREPACK 1 BOTTLE MISC (01:48)
[2024-08-26 01:52] VITALS: BP 170/98
== END 2024-08-26 01:53 | disposition home or self-care (01) ==
PROVIDERS: Emergency Provider Emergency Medicine; PCP Nurse Practitioner Family
DX: K52.9 Noninfective gastroenteritis and colitis, unspecified (principal); R11.2 Nausea with vomiting, unspecified; K44.9 Diaphragmatic hernia without obstruction or gangrene; K40.90 Unilateral inguinal hernia, without obstruction or gangrene, not specified as recurrent
CPT/HCPCS: 36415; 74177; 80053; 83690; 85025; 99284; J2405; Q9967

== ENCOUNTER 2024-08-26 08:07 | Emergency (ER) | payer OTHER, MEDICAID, SELFPAY ==
--- NOTE | 2024-08-26 08:15 | ED_ITS ---
HPI - Nausea/Vomiting/Diarrhea General Chief complaint: Abdominal Pain Stated complaint: Vomiting, not getting better from lastnight Time Seen by Provider: 08/26/24 08:11 History of Present Illness HPI Narrative: Patient is a 58-year-old male who presents for persistent nausea vomiting, states that it started approximately 3 days ago, was seen here several hours ago for the same, states that he went home tried taking his medications but had an episode of vomiting therefore decided come back into the ED. states that none of his symptoms are any worse, just states some generalized abdominal cramping intermittent nothing making it better or worse. Review of records shows that patient did have lab work and imaging performed, lab work was unremarkable for any leukocytosis, slight elevation in his creatinine but not consistent with an MICHELLE. CT scan does show esophagitis versus nonspecific colitis. Patient was sent home on Zofran, he states that he tried taking this and then a few minutes later tried taking his other medications but still had episode of vomiting. Denies any bright red blood in his vomitus, no coffee-ground emesis. He states that he is worried he is not able to take his medications therefore decided come back into the ED for further evaluation treatment. Related Data Home Medications Medication Instructions Recorded Confirmed [fermented codliver o] ##0 02/13/18 12/07/22 [natural calm] ##0 02/13/18 12/07/22 cholecalciferol (vitamin D3) 125 5,000 unit PO ##0 02/13/18 12/07/22 mcg (5,000 unit) capsule cyanocobalamin (vitamin B-12) 1,000 mcg IM X1 ##0 02/13/18 12/07/22 1,000 mcg/mL injection solution apixaban [Eliquis] PO BID 07/21/21 12/07/22 diltiazem HCl 180 mg capsule,24 180 mg PO DAILY 07/21/21 12/07/22 hr,extended release lisinopril 20 mg tablet 20 mg PO DAILY 07/21/21 12/07/22 metoprolol succinate 200 mg 200 mg PO DAILY 07/21/21 12/07/22 capsule sprinkle, ext. release 24 hr Previous Rx's Medication Instructions Recorded chlorhexidine gluconate 0.12 % 15 ml buccal BID #118 mL 02/07/21 mouthwash cyclobenzaprine 10 mg tablet 10 mg PO TID PRN muscle spasm #14 07/13/22 tabs ibuprofen 400 mg tablet 400 mg PO Q8H #20 tabs 07/13/22 albuterol sulfate 90 mcg/actuation 2 puff inhalation Q4-6H PRN 12/07/22 aerosol inhaler shortness of breath or wheezing #8.5 grams azithromycin 250 mg tablet See Rx Instructions PO .COMPLEX #6 12/07/22 tabs inhalational spacing device #1 ea 12/07/22 (BreatheRite MDI Spacer) aluminum-mag hydroxide-simethicone 5 ml PO 5XD PRN indigestion #3,000 08/26/24 200 mg-200 mg-20 mg/5 mL oral susp mL (Maalox Advanced) Allergies Allergy/AdvReac Type Severity Reaction Status Date / Time Penicillins [PENICILLINS] Allergy Unknown Verified 08/01/24 14:58 Review of Systems Review of Systems Narrative: General: Denies fever, chills, weight loss HEENT: Denies headache, eye drainage, eye irritation, head trauma, sore throat, voice change Cardiovascular: Denies any chest pain, palpitations, shortness of breath, tachycardia Respiratory: Denies any shortness of breath, cough, wheeze, stridor GI/: Positive:nausea, vomiting, Denies any abdominal pain, diarrhea, bright red blood per rectum, melanotic stools, urinary frequency, urinary retention, dysuria, hematuria MSK: Denies any joint pain, muscle pains, swelling Skin: Denies any rashes, lesions, discoloration Neuro: Denies any headache, lightheadedness, dizziness, fainting, weakness Psych: Denies SI/HI Patient History Medical History New onset a-fib Dental infection No significant medical problems Social History Smoking Status: Current some day smoker Smoking Status: Current some day smoker tobacco type: cigarettes alcohol intake frequency: holidays/special occasions only Substance Use Type: marijuana Exam Narrative Exam Narrative: General: Cooperative, comfortable, well-developed, not in acute distress HEENT: Normocephalic, atraumatic, PERRLA, normal sclera, eyelids normal, Neck: Active full range of motion, atraumatic Chest: Normal to inspection, negative crepitus, no overlying erythema ecchymosis Respiratory: Normal respiratory effort, not in acute respiratory distress, clear to auscultation bilaterally negative cough, wheeze, tachypnea, rhonchi, rales Cardiology: Regular rate rhythm negative gallop, murmur, rubs GI/: Normal to inspection, soft, nonrigid, no tenderness to palpation, exam deferred MSK: Full range of active range of motion of all 4 extremities, atraumatic Skin: No rashes lesions noted Neuro: Alert awake oriented x3, moves all 4 extremities spontaneously, cranial nerves intact, able to answer all questions appropriately follows commands appropriately Psych: Cooperative, negative suicidal or homicidal ideations Initial Vital Signs Initial Vital Signs: Vital Signs Temperature 98.0 F 08/26/24 08:24 Pulse Rate 111 H 08/26/24 08:24 Respiratory Rate 18 08/26/24 08:24 Blood Pressure 164/84 H 08/26/24 08:24 Pulse Oximetry 97 08/26/24 08:24 Oxygen Delivery Method Room Air 08/26/24 08:24 Course Orders Ordered: ED Orders 08/26/24 08:20 BMP [Basic Metabolic Panel] Stat MAG [Magnesium] Stat Famotidine (Famotidine 20 Mg/2 Ml Vial) 20 mg IV NOW KEMI Last Admin: 08/26/24 08:33 Dose: 20 mg Documented By: ALESSIA Discontinued Medications Al Hydrox/Mg Hydrox/Simethicone (Mag Hydrox/Alum/Simeth 30 Ml Udc) 30 ml PO NOW ONE Stop: 08/26/24 08:17 Last Admin: 08/26/24 08:30 Dose: 30 ml Documented By: ALESSIA Diphenhydramine HCl (Diphenhydramine 50 Mg/Ml Vial) 25 mg IV NOW ONE Stop: 08/26/24 08:17 Last Admin: 08/26/24 08:35 Dose: 25 mg Documented By: ALESSIA Metoclopramide HCl (Metoclopramide 10 Mg/2 Ml Inj) 10 mg IV NOW ONE Stop: 08/26/24 08:17 Last Admin: 08/26/24 08:31 Dose: 10 mg Documented By: ALESSIA Vital Signs Vital signs: Vital Signs - 8 hr 08/26/24 08:24 Temperature 98.0 F Pulse Rate 111 H Respiratory Rate 18 Blood Pressure 164/84 H Pulse Oximetry 97 Oxygen Delivery Method Room Air MDM - Nausea/Vomiting/Diarrhea Differential Diagnosis Differential diagnosis: Likely food poisoning, gastroenteritis, dehydration and other (Electrolyte abnormality) Lab Data 08/26/24 08:20 Labs: Lab Results 08/26/24 Range/Units 08:20 Sodium 137 (137-145) mmol/L Potassium 3.8 (3.4-5.1) mmol/L Chloride 94 L (98-107) mmol/L Carbon Dioxide 34 H (22-32) mmol/L BUN 27 H (9-20) mg/dL Creatinine 1.39 H (0.66-1.25) mg/dL Estimated GFR 59 L (>60) mL/min BUN/Creatinine Ratio 19.4 (6-22) Glucose 145 H (70-100) mg/dL Calcium 9.3 (8.4-10.2) mg/dL Magnesium 2.2 (1.6-2.3) mg/dL MDM Narrative Medical decision making narrative: Patient is a 58-year-old male who presents for persistent nausea vomiting x2 days, was seen here several hours prior, had CT scan that showed esophagitis versus colitis, but no leukocytosis. States that he went home took some antiemetics and then attempted to take his other medications and had episode of vomiting, states that he is on Eliquis for AFib. He states that he has otherwise been compliant with all of his medications. He denies any trauma or falls denies any other symptoms. 0937: Patient was re-evaluated states complete resolution of symptoms here, I informed him that his CT scan results does show esophagitis and that he needs to have bowel rest for the next 24 hours and then slowly reintroduce clear liquids. He verbalized understanding of this on repeat exam he is nontoxic no abdominal pain with palpitation, lab work unremarkable, he was given strict return precautions will be discharged home with Maalox and instructed to follow up with PCP in outpatient setting, he verbalized understanding of this agrees to being discharged home with outpatient follow up Discharge Plan Departure Patient Disposition: Home Clinical Impression: Gastritis Activity Restrictions/Additional Instructions: Please follow up with primary care Prescriptions: New alum-mag hydroxide-simeth [Maalox Advanced] 200-200-20 mg/5 mL suspension 5 ml PO 5XD PRN (Reason: indigestion) Qty: 3000 0RF Rx Instructions: administer between meals and at bedtime No Action chlorhexidine gluconate 0.12 % mouthwash 15 ml buccal BID Qty: 118 0RF albuterol sulfate 90 mcg/actuation HFA aerosol inhaler 2 puff inhalation Q4-6H PRN (Reason: shortness of breath or wheezing) Qty: 8.5 0RF (DME) BreatheRite MDI Spacer Spacer See Rx Instructions .Route Qty: 1 0RF Rx Instructions: As directed azithromycin 250 mg tablet See Rx Instructions PO .COMPLEX Qty: 6 0RF Rx Instructions: For 250 mg dose pack: take 500 mg today (day 1), then 250 mg for 4 days (days 2-5) PO cyanocobalamin (vitamin B-12) 1,000 MCG/1 ML solution 1,000 mcg IM X1 Qty: 0 cholecalciferol (vitamin D3) 5,000 UNIT capsule 5,000 unit PO Qty: 0 [fermented codliver o] Qty: 0 [natural calm] Qty: 0 cyclobenzaprine 10 mg tablet 10 mg PO TID PRN (Reason: muscle spasm) Qty: 14 0RF ibuprofen 400 mg tablet 400 mg PO Q8H Qty: 20 0RF apixaban [Eliquis] PO BID metoprolol succinate 200 mg capsule,sprinkle,ER 24hr 200 mg PO DAILY lisinopril 20 mg tablet 20 mg PO DAILY diltiazem HCl 180 mg capsule,extended release 24 hr 180 mg PO DAILY Referrals: Savanna Garzon ARNP, RN [[employer]] - Stand Alone Forms: Patient Portal/API
[2024-08-26 08:24] VITALS: BP 164/84; PULSE 111; RESP 18; TEMP 36.7; O2SAT 97; BMI 28.5
[2024-08-26] MEDS: MAG HYDROX/ALUM/SIMETH 30 ML UDC PO (08:30)
[2024-08-26] MEDS: METOCLOPRAMIDE 10 MG/2 ML INJ IV (08:31)
[2024-08-26] MEDS: FAMOTIDINE 20 MG/2 ML VIAL IV (08:33)
[2024-08-26] MEDS: diphenhydrAMINE 50 MG/ML VIAL 25 MG IV (08:35)
[2024-08-26 08:40] LABS: BUN Creatinine Ratio 19.4 (6-22); Blood Urea Nitrogen 27 mg/dL (9-20); Calcium 9.3 mg/dL (8.4-10.2); Carbon Dioxide 34 mmol/L (22-32); Chloride 94 mmol/L (98-107); Estimated Glomerular Filt Rate 59 mL/min (>60); Glucose 145 mg/dL (70-100); HEMOLYSIS < 15 (0-50); Magnesium 2.2 mg/dL (1.6-2.3); Potassium 3.8 mmol/L (3.4-5.1); Sodium 137 mmol/L (137-145)
--- NOTE | 2024-08-26 09:02 | PC.NURSE ---
States will be able to drive him home
[2024-08-26 10:00] VITALS: BP 139/90; PULSE 84; RESP 16; O2SAT 98
== END 2024-08-26 10:02 | disposition home or self-care (01) ==
PROVIDERS: Emergency Provider Student in an Organized Health Care Education/Training Program; PCP Family Medicine; Referring Provider Student in an Organized Health Care Education/Training Program
DX: K29.70 Gastritis, unspecified, without bleeding (principal); Z79.899 Other long term (current) drug therapy; K52.9 Noninfective gastroenteritis and colitis, unspecified; R11.2 Nausea with vomiting, unspecified; K44.9 Diaphragmatic hernia without obstruction or gangrene; K40.90 Unilateral inguinal hernia, without obstruction or gangrene, not specified as recurrent
CPT/HCPCS: 36415; 74177; 80048; 80053; 83690; 83735; 85025; 96374; 96375; 99284; 99285; J1200; J2405; J2765; Q9967

== ENCOUNTER → 2024-12-08 11:23 | Outpatient (CLI) | payer OTHER, SELFPAY ==
[2024-12-08 12:27] LABS: Alanine Aminotransferase 47 IU/L (<50); Albumin 3.9 g/dL (3.5-5.0); Albumin Globulin Ratio 1.7 (1.0-2.8); Alkaline Phosphatase 77 U/L (38-126); Aspartate Aminotransferase 33 IU/L (17-59); BUN Creatinine Ratio 22.2 (6-22); Bilirubin Total 0.5 mg/dL (0.2-1.3); Blood Urea Nitrogen 22 mg/dL (9-20); Carbon Dioxide 24 mmol/L (22-32); Chloride 106 mmol/L (98-107); Cholesterol 192 mg/dL (140-199); Estimated Glomerular Filt Rate > 60 mL/min (>60); Globulin 2.3 g/dL (1.7-4.1); Glucose 116 mg/dL (70-100); HDL Cholesterol 60 mg/dL (40-60); HEMOLYSIS < 15 (0-50); LDL Cholesterol Calculated 115 mg/dL (<100); Potassium 4.3 mmol/L (3.4-5.1); Sodium 136 mmol/L (137-145); Total Protein 6.2 g/dL (6.3-8.2); Triglycerides 85 mg/dL (35-150)
== END ==
PROVIDERS: PCP Family Medicine; Referring Provider Internal Medicine Cardiovascular Disease; Visit Provider Internal Medicine Cardiovascular Disease
DX: E78.5 Hyperlipidemia, unspecified (principal)
CPT/HCPCS: 36415; 80053; 80061

== ENCOUNTER → 2025-08-07 08:31 | Outpatient (CLI) | payer OTHER, SELFPAY ==
--- NOTE | 2025-08-07 08:32 | DI.US.S_ITS ---
PROCEDURE: US ARTERIAL DUPLEX UE BI INDICATIONS: b/l intermittent white/tingling to all fingers distal tips TECHNIQUE: Color and pulse Doppler interrogation was performed of both upper extremity arterial systems, with image documentation. COMPARISON: (Prior imaging is not available for review from the archive at the time of this dictation.) FINDINGS: Normal-appearing, multiphasic waveforms are seen throughout. The flow velocities are likewise within normal limits. No focal area of increased flow velocity is seen to suggest a focal stenosis. Antegrade flow is confirmed to the distal aspects of each of the trifurcation vessels. No significant phillips scale abnormality is seen. IMPRESSION: No hemodynamically significant stenosis can be seen. Dictated by: John Avila M.D. on 08/07/2025 at 10:07 Approved by: John Avila M.D. on 08/07/2025 at 10:08
== END ==
LOC: US 08:32
PROVIDERS: PCP Family Medicine; Referring Provider Physician Assistant; Visit Provider Physician Assistant
DX: I99.8 Other disorder of circulatory system (principal)
CPT/HCPCS: 93930

== ENCOUNTER → 2025-08-19 11:40 | Outpatient (CLI) | payer OTHER, SELFPAY | PROVIDERS: PCP Family Medicine; Referring Provider Family Medicine; Visit Provider Family Medicine | DX: F17.200 Nicotine dependence, unspecified, uncomplicated (principal); I99.8 Other disorder of circulatory system; R23.9 Unspecified skin changes; M25.50 Pain in unspecified joint; Z68.27 Body mass index [BMI] 27.0-27.9, adult; I48.91 Unspecified atrial fibrillation | CPT/HCPCS: 36415; 85651; 86038; 86140; 86430 ==

== ENCOUNTER → 2025-08-25 10:57 | Outpatient (CLI) | payer OTHER, SELFPAY ==
--- NOTE | 2025-08-25 10:59 | DI.RAD.S_ITS ---
PROCEDURE: XR WRIST RT MIN 3V INDICATIONS: pain and swelling right wrist TECHNIQUE: Four views of the right wrist were acquired. COMPARISON: [facility], , XR WRIST RT MIN 3V, 02/28/2024, 10:28. FINDINGS: Bones: Ulnar minus variant noted Joints: Mild degeneration STT, 1st CMC and distal radioulnar joint. Soft tissues: No soft tissue abnormality. IMPRESSION: Chronic findings Dictated by: Moerno Casanova M.D. on 08/26/2025 at 11:46 Approved by: Moreno Casanova M.D. on 08/26/2025 at 11:47
== END ==
PROVIDERS: PCP Family Medicine; Referring Provider Family Medicine; Visit Provider Family Medicine
DX: M19.031 Primary osteoarthritis, right wrist (principal); M25.531 Pain in right wrist; M25.431 Effusion, right wrist
CPT/HCPCS: 73110

== ENCOUNTER → 2025-09-28 06:58 | Outpatient (CLI) | payer OTHER, SELFPAY ==
--- NOTE | 2025-09-28 06:59 | DI.CT.S_ITS ---
PROCEDURE: CT LUNG LOW DOSE SCREENING INDICATIONS: tobacco user TECHNIQUE: Noncontrast 2.0-2.5 mm thick sections acquired from the pulmonary apices to the posterior costophrenic angles. 7 mm thick axial MIP, and 5 mm coronal and sagittal reformats were then acquired. For radiation dose reduction, the following was used: automated exposure control, adjustment of mA and/or kV according to patient size. COMPARISON: None. FINDINGS: Image quality: Diagnostic. Lower Neck: No enlarged lymph nodes. Thyroid: No thyroid nodules which require sonographic follow up, per consensus guidelines. Axillae: No enlarged lymph nodes. Chest Wall: Unremarkable. Bones: Unremarkable. Lungs and Pleura: No pneumothorax or pleural effusions. A few solid pulmonary micro nodules. Index lesion measures 2 mm in the left lower lobe (series 4, image 93). Heart: Heart size is normal. No pericardial effusion. Two vessel coronary calcifications. Thoracic Vessels: The aorta and pulmonary arteries demonstrate normal size. Mediastinum and Josie: No enlarged lymph nodes. Esophagus: No wall thickening. No hiatal hernia. Upper Abdomen: Visualized upper abdomen solid organs and bowel loops appear normal. IMPRESSION: No suspicious pulmonary nodules. LUNG-RADS 2; continued annual screening, if eligible. Clinically Significant Non-pulmonary Findings: Marked coronary artery calcifications for age. Correlate with risk factors and advise counseling. Dictated by: Lasha Blum M.D. on 09/28/2025 at 9:31 Approved by: Lasha Blum M.D. on 09/28/2025 at 9:41
== END ==
LOC: CT 06:59
PROVIDERS: PCP Family Medicine; Referring Provider Family Medicine; Visit Provider Family Medicine
DX: R91.8 Other nonspecific abnormal finding of lung field (principal); I25.10 Atherosclerotic heart disease of native coronary artery without angina pectoris; F17.210 Nicotine dependence, cigarettes, uncomplicated
CPT/HCPCS: 71271